=== PATIENT | female | born 1970 | race Asian ===

== ENCOUNTER 2021-02-12 10:59 | Outpatient (REF) | payer OTHER, SELFPAY ==
--- NOTE | ~2021-02-12 | CT_ITS ---
EXAMINATION: CT HEAD WITHOUT CONTRAST CLINICAL INFORMATION: Headache COMPARISON: None TECHNIQUE: Contiguous axial imaging was performed from the skull base to vertex without intravenous administration of contrast. This CT examination was performed using dose optimization techniques as appropriate, variously including the following: *Automated exposure control *Adjustment of mA and/or kV according to patient size (this includes techniques or standardized protocols for targeted exams where dose is matched to indication/reason for exam; i.e. extremities or head) *Use of iterative reconstruction technique DLP: 695 mGy-cm FINDINGS: There is no evidence of acute intracranial hemorrhage or territorial infarction. No abnormal mass effect or midline shift is seen. Graham to white matter differentiation is well preserved. No extra-axial fluid collections are identified. The ventricles are normal in size. There is no abnormal attenuation within the brain parenchyma. The osseous structures and soft tissues are normal. The mastoid air cells and visualized portions of the paranasal sinuses are well aerated. CT/CT head/brain wo con IMPRESSION: Unremarkable exam.
== END 2021-02-12 11:00 | disposition home or self-care (01) ==
LOC: HO.CT 10:59
PROVIDERS: PCP Internal Medicine; Visit Provider Internal Medicine
DX: R51.9 Headache, unspecified (principal); G89.29 Other chronic pain
CPT/HCPCS: 70450

== ENCOUNTER 2021-04-23 08:04 | Outpatient (REF) | payer OTHER, SELFPAY ==
[2021-04-23 09:13] LABS: Alanine Aminotransferase 29 U/L (0-31); Albumin Level 4.5 g/dL (3.5-5.0); Alkaline Phosphatase 73 U/L (39-117); Anion Gap 11 (12-20); Aspartate Amino Transferase 23 U/L (5-31); Bilirubin Total 0.8 mg/dL (0.0-1.0); Blood Urea Nitrogen 11 mg/dL (9-16); Calcium 9.2 mg/dL (8.4-10.2); Carbon Dioxide 28 mmol/L (22-29); Chloride 107 mmol/L (96-108); Estimated Glomerular Filt Rate > 60; Glucose Fasting 104 mg/dL (60-99); Potassium 4.1 mmol/L (3.3-5.1); Sodium 142 mmol/L (135-145); Total Protein 7.5 g/dL (6.5-8.0)
[2021-04-23 09:18] LABS: Cholesterol 127 mg/dL; HDL Cholesterol 61 mg/dL; LDL Cholesterol Calculated 52 mg/dl; Triglycerides 70 mg/dL
[2021-04-23 09:43] LABS: Free T4 (Free Thyroxine) 1.43 ng/dL (0.71-1.85); Vitamin D 25-OH Total 53.4 ng/mL (>30)
== END 2021-04-23 08:05 | disposition home or self-care (01) ==
LOC: HO.LAB 08:04
PROVIDERS: PCP Internal Medicine; Visit Provider Internal Medicine
DX: E89.0 Postprocedural hypothyroidism (principal); E78.00 Pure hypercholesterolemia, unspecified; E55.9 Vitamin D deficiency, unspecified
CPT/HCPCS: 36415; 80053; 80061; 82306; 84439; 84443

== ENCOUNTER → 2021-07-27 10:28 | Outpatient (BNVA) | payer OTHER, SELFPAY | PROVIDERS: PCP Internal Medicine; Referring Provider Internal Medicine; Visit Provider Nurse Practitioner Family ==

== ENCOUNTER 2022-02-07 07:09 | Day surgery (SDC) | payer OTHER, SELFPAY ==
[2022-02-01 12:00] VITALS: BMI 25.4
--- NOTE | 2022-02-04 10:20 | P.CONAN_ITS ---
Documented by User: Winter Nunez NP 02/04/22 10:21 HPI - Anesthesia Eval Consult details Narrative: 51yo F for Colonoscopy PMFSH Active Problems Active Problems: All Active Problems (Updated 10/25/21 @ 12:18 by Lawrence Mcgregor MD) Migraine (Acute) Annual physical exam (Acute) Colon cancer screening (Acute) Chronic headache (Acute) Overweight (BMI 25.0-29.9) (Acute) Vitamin D deficiency (Acute) Postsurgical hypothyroidism (Acute) Pure hypercholesterolemia (Acute) Past Medical History Medical History Chronic headache Migraine Overweight (BMI 25.0-29.9) Postsurgical hypothyroidism Pure hypercholesterolemia Thyroid cancer Vitamin D deficiency Family History Family History Mother Coronary artery disease Father Coronary artery disease Surgical History Surgical History H/O total thyroidectomy Social History Social History Housing: House Alcohol intake: never Patient Tobacco Use Status: Never used Tobacco Second Hand Smoke Exposure: No Use of substances other than those prescribed or required for medical reasons: No Are you DNR?: No Advance Directives: No Advance Directives Information Provided: Yes service: No Current occupational status: employed 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 Cognitive needs: No Hearing needs: No Vision needs: No Meds Allergies Allergy/AdvReac Type Severity Reaction Status Date / Time No Known Allergies Allergy Verified 10/25/21 11:59 Home Medications Medication Instructions Recorded Confirmed Last Taken Type cholecalciferol (vitamin D3) 50 50 mcg PO DAILY 01/22/21 10/25/21 Unknown History mcg (2,000 unit) capsule Exam Exam Date and Time: February 04, 2022 1020 Height,Weight and Vital Signs: Height 5 ft 1 in Weight 61.235 kg Assessment and Plan Assessment Anesthesia Assessment: Chart Reviewed Documented by User: Zaria López MD 02/07/22 08:28 [facility] Past Medical History Medical History Chronic headache Migraine Overweight (BMI 25.0-29.9) Postsurgical hypothyroidism Pure hypercholesterolemia Thyroid cancer Vitamin D deficiency Family History Family History Mother Coronary artery disease Father Coronary artery disease Family history of problems with anesthesia: No Surgical History Surgical History H/O total thyroidectomy History of Problems with Anesthesia: No Social History Social History Housing: House Alcohol intake: never Patient Tobacco Use Status: Never used Tobacco Second Hand Smoke Exposure: No Use of substances other than those prescribed or required for medical reasons: No Are you DNR?: No Advance Directives: No Advance Directives Information Provided: Yes service: No Current occupational status: employed 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 Cognitive needs: No Hearing needs: No Vision needs: No Meds Allergies Allergy/AdvReac Type Severity Reaction Status Date / Time No Known Allergies Allergy Verified 10/25/21 11:59 Home Medications Medication Instructions Recorded Confirmed Last Taken Type cholecalciferol (vitamin D3) 50 50 mcg PO DAILY 01/22/21 10/25/21 Unknown History mcg (2,000 unit) capsule Exam Airway Mallampati Class: III TM Dist: >3cm Neck ROM: Full Partial: Lower Heart: rrr Lungs: cta Assessment and Plan Assessment Anesthesia Assessment: Anesthesia Plan Discussed and Chart Reviewed Final Anesthetic Review Family History of Problems with Anesthesia: No History of Problems with Anesthesia: No ASA Class: II Final Preanesthetic Review: No Changes in Pt Med Stat, Meds/Allgs Chart Reviewed and Consent Obtained/Reviewed Patient Risk: Intermediate Procedure Risk: Intermediate Anesthetic Plan Anesthetic Plan: MAC: Disposition: Standard PACU
[2022-02-07 07:40] VITALS: BP 137/81; PULSE 79; RESP 16; TEMP 36.3; O2SAT 96
[2022-02-07] MEDS: Lactated Ringers 1,000 ML 100 ML IVCONT (07:46)
--- NOTE | 2022-02-07 08:16 | P.HPSUR_ITS ---
Pre-Procedural Eval Section A Date of Service: 02/07/22 The patient is an INPATIENT: No The History & Physical has been completed within 30 days and I have reviewed it.: No Section B Chief Complaint: screening Details of Present Illness: Colon cancer screening Relevant Family History (Specify if Yes): No Relevant Social History: None Present Medications: see Short Stay Collaborative assessment Medical History: Significant History (Chronic headache Overweight (BMI 25.0- 29.9) Postsurgical hypothyroidism Pure hypercholesterolemia Thyroid cancer Vitamin D deficiency) History of Previous Operations: Relevant previous surgery/procedure and date(s) (Status post thyroidectomy) Allergies: Allergies Allergy/AdvReac Type Severity Reaction Status Date / Time No Known Allergies Allergy Verified 10/25/21 11:59 Review of Systems Sugical H&P ROS: Negative: Constitution, Cardiovascular, Respiratory and Gastrointestinal Exam Surgical H&P Exam: Normal: Heart, Normal: Lungs and Normal: Abdomen Plan Diagnosis/Plan: Unchanged I have reviewed the history and physical and performed a pertinent physical examination on my patient. No changes have occurred unless specified.
--- NOTE | 2022-02-07 08:37 | PM.OP ---
Brief Operative Note Date of Service: 02/07/22 Pre-op diagnosis: Colon cancer screening Post-op diagnosis: other (Colon polyp, diverticulosis, hemorrhoids) Procedure: COLONOSCOPY TILL CECUM WITH BIOPSIES Consent: Indications for the procedure and potential complications of bleeding, perforation, reaction to medications and missed diagnosis were discussed with the patient and informed consent was obtained. Instrument: Olympus PCF H 190 L variable stiffness pediatric colonoscope Monitoring: Vital signs and clinical assessment, intermittent blood pressure monitoring, continuous EKG monitoring, Pulse oximetry and Carbon Dioxide monitoring were done throughout the procedure. Colon withdrawl time was 13 minutes. Procedure: The patient was placed in the left lateral decubitis position and pre-procedure medications were administered. After a digital rectal examination of the ano-rectum, the video colonoscope was inserted into the rectum and advanced through the colon to the cecum. The colonoscope was slowly withdrawn in a retrograde panoramic fashion and the colon mucosa was carefully examined including a retroflexed view of the rectum. Findings and interventions are described below. Procedure Difficulty: Without difficulty Findings: Terminal Ileum: Not evaluated Cecum: Normal Ascending Colon: Normal Transverse Colon: Normal Descending Colon: Normal Sigmoid Colon: A 5-6 mm sessile polyp removed with a cold bx. Moderate diverticulosis Rectum: Normal Ano-rectum: Moderate internal hemorrhoids Colon preparation: Excellent Impression and Post Procedure Diagnosis: Colonoscopy Findings: One small polyp removed Moderate diverticulosis seen in the sigmoid colon Moderate hemorrhoids on retroflexed exam. Plan: Await pathology results Patient has an appointment on 02/21/22 in the GI Clinic with Елена Fontanez FNP-BC. Repeat Colonoscopy interval based on path results - in 5 years if polyps are adenomatous and 10 years if polyps are hyperplastic. Above findings were reviewed with the patient and colon polyps and diverticulosis handouts were given in the discharge area Surgeon: Colten Elliott MD Anesthesia: MAC Was an Handmade Tile Artist used for this Procedure?: Yes Handmade Tile Artist: Amanda Alston Estimated blood loss (mL): 0 Pathology: other ( A. sigmoid polyp) Condition: stable Disposition: PACU
[2022-02-07 09:02] VITALS: BP 109/65; PULSE 77; RESP 16; TEMP 36; O2SAT 96
--- NOTE | 2022-02-07 09:04 | P.OP_ITS ---
Operative Note Operative Note Date of Service: 02/07/22 Narrative: Pre-op diagnosis: Colon cancer screening Post-op diagnosis:?other (Colon polyp, diverticulosis, hemorrhoids) Procedure: COLONOSCOPY TILL CECUM WITH BIOPSIES Consent: Indications for the procedure and potential complications of bleeding, perforation, reaction to medications and missed diagnosis were discussed with the patient and informed consent was obtained. Instrument: Olympus PCF H 190 L variable stiffness pediatric colonoscope Monitoring: Vital signs and clinical assessment, intermittent blood pressure monitoring, continuous EKG monitoring, Pulse oximetry and Carbon Dioxide monitoring were done throughout the procedure. Colon withdrawl time was 13 minutes. Procedure: The patient was placed in the left lateral decubitis position and pre-procedure medications were administered. After a digital rectal examination of the ano-rectum, the video colonoscope was inserted into the rectum and advanced through the colon to the cecum. The colonoscope was slowly withdrawn in a retrograde panoramic fashion and the colon mucosa was carefully examined including a retroflexed view of the rectum. Findings and interventions are described below. Procedure Difficulty: Without difficulty Findings: Terminal Ileum: Not evaluated Cecum:? Normal Ascending Colon:? Normal Transverse Colon:? Normal Descending Colon:? Normal Sigmoid Colon:? A 5-6 mm sessile polyp removed with a cold bx. Moderate diverticulosis Rectum:? Normal Ano-rectum:? Moderate internal hemorrhoids Colon preparation: Excellent ? Impression and Post Procedure Diagnosis: Colonoscopy Findings: One small polyp removed Moderate diverticulosis seen in the sigmoid colon Moderate hemorrhoids on retroflexed exam. Plan: Await pathology results Patient has an appointment on 02/21/22 in the GI Clinic with ? Елена Fontanez F NP-[facility]. Repeat Colonoscopy interval based on path results - in 5 years if polyps are adenomatous and 10 years if polyps are hyperplastic. Above findings were reviewed with the patient and colon polyps and diverticulosis handouts were given in the discharge area Surgeon: Colten Elliott MD Anesthesia:?MAC Was an Manager Compensation used for this Procedure?:?Yes Manager Compensation:?Amanda Alston Estimated blood loss (mL):?0 Pathology:?other ( A. sigmoid polyp) Condition:?stable Disposition:?PACU
[2022-02-07 09:18] VITALS: BP 111/66; PULSE 70; RESP 16; O2SAT 98
[2022-02-07 09:33] VITALS: BP 132/78; PULSE 75; RESP 18; O2SAT 98
[2022-02-07 09:48] VITALS: BP 145/77; PULSE 75; RESP 18; TEMP 36.6; O2SAT 98
== END 2022-02-07 10:10 | disposition home or self-care (01) ==
LOC: HO.SSS 07:10
PROVIDERS: PCP Internal Medicine; Visit Provider Internal Medicine Gastroenterology
PROC: 0DJD8ZZ Inspection of Lower Intestinal Tract, Via Natural or Artificial Opening Endoscopic (ICD-10-PCS; CPT 45378; principal; 2022-02-07 08:30)
DX: Z12.11 Encounter for screening for malignant neoplasm of colon (principal); K63.5 Polyp of colon; K57.30 Diverticulosis of large intestine without perforation or abscess without bleeding; K64.8 Other hemorrhoids; E78.00 Pure hypercholesterolemia, unspecified; E55.9 Vitamin D deficiency, unspecified; E89.0 Postprocedural hypothyroidism; Z85.850 Personal history of malignant neoplasm of thyroid; R51.9 Headache, unspecified; E66.3 Overweight; Z68.25 Body mass index [BMI] 25.0-25.9, adult; Z79.899 Other long term (current) drug therapy
CPT/HCPCS: 45380; 88305

== ENCOUNTER 2022-04-22 12:24 | Outpatient (REF) | payer OTHER, SELFPAY ==
[2022-04-22 12:36] LABS: MANUAL DIFF FLAG NO
[2022-04-22 12:56] LABS: Basophils Percent Auto 0.4 % (0-2); Eosinophils Absolute Auto 0.2 X10*3/uL (0.0-0.4); Eosinophils Percent Auto 4.3 % (0-4); Hemoglobin 12.9 g/dl (12.0-16.0); Imm Gran Abs Auto 0.01 X10*3/uL (0.00-0.03); Imm Gran Pct Auto 0.2 % (0.0-0.4); Lymphocytes Absolute Auto 1.2 X10*3/uL (1.2-4.9); Lymphocytes Percent Auto 24.1 % (20-40); Mean Corpuscular HGB Conc 34.9 g/dl (31.0-35.0); Mean Corpuscular Hemoglobin 30.5 pg (27.0-33.0); Mean Corpuscular Volume 87.5 fL (80.0-98.0); Mean Platelet Volume 9.7 fL (9.4-12.3); Monocytes Absolute Auto 0.4 X10*3/uL (0.1-1.2); Monocytes Percent Auto 6.9 % (2-11); Neutrophils Absolute Auto 3.3 x10*3/uL (2.0-8.3); Neutrophils Percent Auto 64.1 % (45-73); Platelet Count 308 X10*3/uL (160-400); Red Blood Count 4.23 X10*6/uL (4.20-5.50); Red Cell Distribution Width 12.5 % (11.0-16.0); White Blood Count 5.1 X10*3/uL (4.8-10.8)
[2022-04-22 13:26] LABS: Alanine Aminotransferase 28 U/L (0-31); Albumin Level 4.2 g/dL (3.5-5.0); Alkaline Phosphatase 81 U/L (39-117); Anion Gap 14 (12-20); Aspartate Amino Transferase 25 U/L (5-31); Bilirubin Total 0.9 mg/dL (0.0-1.0); Blood Urea Nitrogen 10 mg/dL (9-16); Calcium 8.5 mg/dL (8.4-10.2); Carbon Dioxide 24 mmol/L (22-29); Chloride 107 mmol/L (96-108); Cholesterol 126 mg/dL; Estimated Glomerular Filt Rate > 60; Glucose Fasting 87 mg/dL (60-99); HDL Cholesterol 61 mg/dL; LDL Cholesterol Calculated 52 mg/dl; Potassium 3.9 mmol/L (3.3-5.1); Sodium 141 mmol/L (135-145); Total Protein 6.9 g/dL (6.5-8.0); Triglycerides 66 mg/dL
[2022-04-22 13:40] LABS: Free T4 (Free Thyroxine) 1.47 ng/dL (0.71-1.85); Vitamin D 25-OH Total 45.1 ng/mL (>30)
[2022-04-22 15:58] LABS: Appearance Urine Clear; Color Urine Yellow; Glucose Urine UA Negative (Negative); Leukocyte Esterase Urine Negative (Negative); Nitrite Urine Negative (Negative); PH 5.5 (5.0-9.0); UMIC TRIGGER UACC YES; Urine Blood Trace (Negative); Urine Ketones Negative (Negative); Urine Protein Negative (Neg-Trace)
[2022-04-22 16:03] LABS: Bacteria Urine None Seen (None Seen); Hyaline Casts Urine 0-2 /LPF (0-2); RBC Urine 0-2 /HPF (0-2); WBC Urine 0-5 /HPF (0-5)
== END 2022-04-22 12:25 | disposition home or self-care (01) ==
LOC: HO.LAB 12:24
PROVIDERS: PCP Internal Medicine; Visit Provider Internal Medicine
DX: E78.00 Pure hypercholesterolemia, unspecified (principal); E03.9 Hypothyroidism, unspecified; I10 Essential (primary) hypertension; E55.9 Vitamin D deficiency, unspecified
CPT/HCPCS: 36415; 80053; 80061; 81001; 81003; 82306; 84439; 84443; 85025

== ENCOUNTER 2022-06-02 16:00 | Outpatient (REF) | payer OTHER, SELFPAY ==
--- NOTE | ~2022-06-02 | US_ITS ---
EXAMINATION: US SOFT TISSUE NECK CLINICAL INFORMATION: Malignant neoplasm of thyroid gland. Status post thyroidectomy. COMPARISON: None. TECHNIQUE: Ultrasound of the neck soft tissues is performed with high- frequency mosqueda-scale imaging and color Doppler. FINDINGS: THYROID BED: Total thyroidectomy. No residual thyroid tissue demonstrated in the thyroid bed. No cystic or solid nodules demonstrated in the thyroid bed. RIGHT NECK SOFT TISSUES: Scattered architecturally normal nodes are present. The nodes show normal fatty hilus, normal cortical thickness, and no cystic change or calcification. No abnormal color flow. The largest nodes are as follows: Level IA: 1.1 x 0.6 x 0.8 cm. Normal kimi architecture. Level IB: 0.6 x 0.7 x 1.2 cm. Abnormal kimi architecture with thick cortex. Level III: 1.8 x 0.3 x 0.5 cm. Normal kimi architecture. LEFT NECK SOFT TISSUES: Scattered architecturally normal nodes are present. The nodes show normal fatty hilus, normal cortical thickness, and no cystic change or calcification. No abnormal color flow. The largest nodes are as follows: Level IB: 1.5 x 1.1 x 1.9 cm. Abnormal kimi architecture with thick cortex. Level IB: 1.0 x 0.6 x 1.2 cm. Abnormal kimi architecture with absent hilum. Level II: 1.1 x 0.6 x 1.1 cm. Normal kimi architecture. US/US soft tiss head and/or neck IMPRESSION: 1. Total thyroidectomy with no residual tissue seen in the thyroid bed. 2. Abnormal-appearing lymph nodes level IB on right and left side. 3. Recommend continued follow-up.
== END 2022-06-02 16:01 | disposition home or self-care (01) ==
LOC: HO.US 16:00
PROVIDERS: PCP Internal Medicine; Visit Provider Internal Medicine Endocrinology, Diabetes & Metabolism
DX: C73 Malignant neoplasm of thyroid gland (principal)
CPT/HCPCS: 76536

== ENCOUNTER 2022-06-22 09:48 | Outpatient (REF) | payer OTHER, SELFPAY ==
--- NOTE | 2022-06-22 10:12 | PM.OP ---
Brief Operative Note Date of Service: 06/22/22 Pre-op diagnosis: History of Thyroid Cancer Procedure: EXAMINATION: US THYROID CLINICAL INFORMATION: History of thyroid cancer COMPARISON: Prior TECHNIQUE: Linear transducer mosqueda-scale and color Doppler examination with attention to the region of the thyroid. FINDINGS: SIZE: Measurements of the thyroid lobes and nodules are given in sagittal, anteroposterior and transverse dimensions respectively. No residual tissue within the thyroid bed. There is a Left level 1B 1.9 cm lymph node with abnormal morphology, with a globus shape and increased vascularity. Surgeon: Paula Geller, DO Was an Sales And Marketing Director used for this Procedure?: No Estimated blood loss (mL): 0
== END 2022-06-22 09:49 | disposition home or self-care (01) ==
LOC: HO.US 09:48
PROVIDERS: Visit Provider Internal Medicine Endocrinology, Diabetes & Metabolism
DX: C73 Malignant neoplasm of thyroid gland (principal)
CPT/HCPCS: 76536

== ENCOUNTER 2022-07-01 08:21 | Outpatient (REF) | payer OTHER, SELFPAY ==
--- NOTE | ~2022-07-01 | US_ITS ---
PROCEDURE: ULTRASOUND-GUIDED FINE-NEEDLE ASPIRATION CLINICAL INFORMATION: Thyroid cancer. Cervical lymphadenopathy. COMPARISON: Previous ultrasound of the head and neck soft tissues May and June 2022. TECHNIQUE: Procedure and risks and benefits including bleeding and infection were discussed with the patient and informed consent was obtained. The left submandibular neck was prepped and draped in the usual sterile fashion. The skin and soft tissues were anesthetized with 1% lidocaine plain. Using ultrasound guidance and a 25-gauge needle, access to the slightly enlarged abnormal-appearing left level IB lymph node was obtained. Three separate 25-gauge FNA specimens were obtained. Specimens were sent for thyroglobulin washout and flow cytometry studies. FINDINGS: There is a 2 cm in transverse dimension left level 1B lymph node that was targeted for fine-needle aspiration. This demonstrates areas of focal cortical thickening and cortical flow. US/US guided fine needle asp IMPRESSION: Ultrasound-guided fine-needle aspiration of left level 1B cervical lymph node.
[2022-07-01] MEDS: Lidocaine HCl 1 % MPF 5 ML VIAL 10 ML SUBCUT (09:37)
[2022-07-07 20:58] LABS: Thyroglobulin, Fine Needle Asp 3.7 ng/mL
== END 2022-07-01 08:22 | disposition home or self-care (01) ==
LOC: HO.US 08:21
PROVIDERS: Radiology Diagnostic Radiology; Visit Provider Internal Medicine
DX: C73 Malignant neoplasm of thyroid gland (principal)
CPT/HCPCS: 10005; 36415; 84432; 88172; 88173; 88184; 88185; 88300; 88305

== ENCOUNTER 2022-07-04 13:12 | Outpatient (REF) | payer OTHER, SELFPAY ==
[2022-07-04 14:48] LABS: Appearance Urine Clear; Color Urine Yellow; Glucose Urine UA Negative (Negative); Leukocyte Esterase Urine Negative (Negative); Nitrite Urine Negative (Negative); PH 5.5 (5.0-9.0); Specific Gravity - Urine 1.015 (1.005-1.025); Urine Blood Negative (Negative); Urine Ketones Negative (Negative); Urine Protein Negative (Neg-Trace)
[2022-07-04 15:00] LABS: Free T4 (Free Thyroxine) 1.35 ng/dL (0.71-1.85); Thyroid Stimulating Hormone 0.27 uIU/mL (0.32-4.0)
[2022-07-08 14:13] LABS: Thyroglobulin <0.1 ng/mL
== END 2022-07-04 13:13 | disposition home or self-care (01) ==
LOC: HO.LAB 13:12
PROVIDERS: PCP Internal Medicine; Visit Provider Internal Medicine Endocrinology, Diabetes & Metabolism
DX: I10 Essential (primary) hypertension (principal); E89.0 Postprocedural hypothyroidism
CPT/HCPCS: 36415; 81003; 84432; 84439; 84443

== ENCOUNTER → 2022-07-06 10:00 | Outpatient (BNVA) | payer OTHER, SELFPAY | PROVIDERS: PCP Internal Medicine; Visit Provider Internal Medicine Endocrinology, Diabetes & Metabolism | DX: E89.0 Postprocedural hypothyroidism (principal) ==

== ENCOUNTER 2022-10-27 12:32 | Outpatient (REF) | payer OTHER, SELFPAY ==
[2022-10-27 12:40] LABS: MANUAL DIFF FLAG NO
[2022-10-27 13:04] LABS: Basophils Percent Auto 0.8 % (0-2); Eosinophils Absolute Auto 0.3 X10*3/uL (0.0-0.4); Eosinophils Percent Auto 5.3 % (0-4); Hematocrit 38.6 % (37.0-47.0); Hemoglobin 13.6 g/dl (12.0-16.0); Imm Gran Abs Auto 0.01 X10*3/uL (0.00-0.03); Imm Gran Pct Auto 0.2 % (0.0-0.4); Lymphocytes Absolute Auto 1.4 X10*3/uL (1.2-4.9); Lymphocytes Percent Auto 26.7 % (20-40); Mean Corpuscular HGB Conc 35.2 g/dl (31.0-35.0); Mean Corpuscular Hemoglobin 31.1 pg (27.0-33.0); Mean Corpuscular Volume 88.3 fL (80.0-98.0); Monocytes Absolute Auto 0.4 X10*3/uL (0.1-1.2); Monocytes Percent Auto 7.2 % (2-11); Neutrophils Absolute Auto 3.2 x10*3/uL (2.0-8.3); Neutrophils Percent Auto 59.8 % (45-73); Platelet Count 312 X10*3/uL (160-400); Red Blood Count 4.37 X10*6/uL (4.20-5.50); Red Cell Distribution Width 12.3 % (11.0-16.0); White Blood Count 5.3 X10*3/uL (4.8-10.8)
[2022-10-27 13:16] LABS: Appearance Urine Clear; Color Urine Yellow; Glucose Urine UA Negative (Negative); Leukocyte Esterase Urine Negative (Negative); Nitrite Urine Negative (Negative); PH 5.5 (5.0-9.0); UMIC TRIGGER UACC YES; Urine Blood Trace (Negative); Urine Ketones Negative (Negative); Urine Protein Negative (Neg-Trace)
[2022-10-27 13:22] LABS: Bacteria Urine None Seen (None Seen); Hyaline Casts Urine 0-2 /LPF (0-2); RBC Urine 0-2 /HPF (0-2); Squamous Epithelial Cell Urine 0-2 /HPF (0-2); WBC Urine 0-5 /HPF (0-5)
[2022-10-27 13:46] LABS: Alanine Aminotransferase 29 U/L (0-31); Albumin Level 4.3 g/dL (3.5-5.0); Alkaline Phosphatase 88 U/L (39-117); Anion Gap 14 (12-20); Aspartate Amino Transferase 24 U/L (5-31); Bilirubin Total 1.3 mg/dL (0.0-1.0); Blood Urea Nitrogen 8 mg/dL (9-16); Calcium 8.8 mg/dL (8.4-10.2); Carbon Dioxide 26 mmol/L (22-29); Chloride 105 mmol/L (96-108); Cholesterol 140 mg/dL; Estimated Glomerular Filt Rate > 60; Glucose Fasting 93 mg/dL (60-99); HDL Cholesterol 61 mg/dL; LDL Cholesterol Calculated 60 mg/dl; Potassium 4.2 mmol/L (3.3-5.1); Sodium 141 mmol/L (135-145); Total Protein 6.9 g/dL (6.5-8.0); Triglycerides 98 mg/dL
[2022-10-27 14:02] LABS: Free T4 (Free Thyroxine) 1.28 ng/dL (0.71-1.85); Thyroid Stimulating Hormone 0.11 uIU/mL (0.32-4.0); Vitamin D 25-OH Total 61.7 ng/mL (>30)
== END 2022-10-27 12:33 | disposition home or self-care (01) ==
LOC: HO.LAB 12:32
PROVIDERS: PCP Internal Medicine; Visit Provider Internal Medicine
DX: E03.9 Hypothyroidism, unspecified (principal); E78.00 Pure hypercholesterolemia, unspecified; I10 Essential (primary) hypertension; E55.9 Vitamin D deficiency, unspecified; R30.0 Dysuria
CPT/HCPCS: 36415; 80053; 80061; 81001; 82306; 84439; 84443; 85025

== ENCOUNTER 2022-11-01 10:36 | Outpatient (AMB) | payer OTHER, SELFPAY ==
[2022-11-01 10:37] VITALS: BP 108/80; PULSE 65; O2SAT 98; BMI 25.9
--- NOTE | 2022-11-01 10:37 | MHC.PC.OV ---
Vital Signs 11/01/22 10:37 Height 5 ft 1 in Weight 137 lb 2 oz BMI 25.9 BP 108/80 Blood Pressure Location Lt brachial Position Sitting Pulse 65 Pulse Source Pulse Oximeter Pulse Oximetry (%) 98 Oxygen Delivery Method Room Air Intake Visit Reasons: hyperlipidemia, hypothyroidism Intake Note: Patiernt is here to discuss hyperlipidemia and hypothyroidism. 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 Accompanied by: Self / Same As Patient Allergies No Known Allergies Allergy (Verified 05/04/23 23:21) Medication List - Last Reconciled 11/01/22 by Lawrence Mcgregor MD atorvastatin 40 mg PO DAILY 90 days cholecalciferol (vitamin D3) 50 mcg PO DAILY levothyroxine 88 mcg PO DAILY mometasone 50 mcg/actuation 2 sprays intranasal DAILY 30 days naphazoline-pheniramine 0.025-0.3 % (Allergy Eye (naphazoline-pheniramine)) 1 drp ophthalmic (eye) BID-QID PRN ondansetron 4 mg PO Q8H PRN polyethylene glycol 3350 (Miralax) 17 grams PO DAILY triamcinolone acetonide 0.1% 1 appl dental BID PRN 7 days Tobacco use date assessed: 11/01/22 HPI hyperlipidemia, hypothyroidism HPI Details Patient comes in today for her follow up visit States that she's had an itchy rash on her right ankle area about a week ago since Easter after she went on an egg brandon Has been applying OTC Hydrocortisone cream over the rash for the past few days with no relief Adds that she has been experiencing frequent headaches again lately and would now like to try starting on preventive Tx for her headaches She denies any dizziness Denies any chest pains, no SOB (+) nausea and some photophobia at times that are associated with her headaches; denies any vomiting or abdominal pain but states that her stomach feels bloated at times when she gets constipated Had her follow up labs done last week - to discuss her results [facility] [place] Medical History Constipation Migraine Chronic headache Overweight (BMI 25.0-29.9) Vitamin D deficiency Postsurgical hypothyroidism Pure hypercholesterolemia Thyroid cancer Surgical History Hx of colonoscopy H/O total thyroidectomy Family History Mother Coronary artery disease Father Coronary artery disease Social History Housing: House Alcohol intake: never Patient Tobacco Use Status: Never used Tobacco e-Cigarette/Vaping Use: Never Used Second Hand Smoke Exposure: No service: No Current occupational status: employed 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 1. Little interest or pleasure in doing things: not at all 2. Feeling down, depressed, or hopeless: not at all 3. Trouble falling or staying asleep, or sleeping too much: not at all 4. Feeling tired or having little energy: not at all 5. Poor appetite or overeating: not at all 6. Feeling bad about yourself - or that you are a failure or have let yourself or your family down: not at all 7. Trouble concentrating on things, such as reading the newspaper or watching television: not at all 8. Moving or speaking so slowly that other people could have noticed. Or the opposite - being so fidgety or restless that you have been moving around a lot more than usual: not at all 9. Thoughts that you would be better off or of hurting yourself in some way: not at all Total score: 0 Depression Screening Interpretation: Negative 14867 - PHQ-9 Billing: Yes Source: Developed by Drs. Spencer Pack, Mariann Kelley, Jon Huang and colleagues, with an educational yulissa from [employer]. Thrive Questionnaire Date Thrive assessed: 11/01/22 I am a: Patient What is your living situation today?: I have a steady place to live Within the past 12 months, did the food you bought not last and you didn't have the money to get more?: Never true Within the past 12 months, did you worry whether your food would run out before you got money to buy more?: Never true Do you have trouble paying for medicines?: No Do you have trouble getting transportation to medical appointments?: No Do you have trouble paying your heating and electricity bill?: No Do you have trouble taking care of your child, family member or friend?: No Do you have trouble with day-to-day activities such as bathing, preparing meals, shopping, managing finances, etc.?: No Are you currently unemployed and looking for a job?: No Are you interested in more education?: No Currently or been in a relationship where the following occur: no concerns reported AUDIT C Alcohol Use Questionnaire (AUDIT-C) 1. How often do you have a drink containing alcohol?: Never 3. How often do you have six or more drinks on one occasion?: Never Total Score: 0 Score Reviewed/Action Taken: Yes MARY-7 AMB Questionnaire MARY-7 Date MARY - 7 assessed: 11/01/22 Feeling nervous, anxious, or on edge: 0 = Not at all Not being able to stop or control worryin = Not at all Worrying too much about different things: 0 = Not at all Trouble relaxin = Not at all Being so restless that it is hard to sit still: 0 = Not at all Becoming easily annoyed or irritable: 0 = Not at all Feeling afraid as if something awful might happen: 0 = Not at all Total MARY-7 score (0-4 normal; 5-9 mild; 10-14 moderate; 15-21 severe): 0 Source: Developed by Drs. Spencer Pack, Mariann Kelley, Jon Huang and colleagues, with an educational yulissa from [employer]. Review of Systems Const Denies fatigue, Denies fever(s) and Reports headache(s) (frequent) Eyes Reports photophobia (when headaches occur) ENT Denies dysphagia, Denies dizziness, Denies otalgia, Reports headache(s) (frequent), Denies neck pain, Denies odynophagia and Denies sore throat Card Denies chest pain, Denies rapid heart rate, Denies irregular heart rhythm, Denies palpitations and Denies dyspnea Resp Denies cough, Denies dyspnea and Denies wheezing GI Denies abdominal pain, Denies constipation, Denies dysphagia, Denies heartburn, Denies diarrhea, Reports nausea (at times, associated mostly with her headaches), Denies odynophagia and Denies vomiting Denies hematuria, Denies urinary frequency and Denies dysuria Musc Denies back pain, Denies arthralgias and Denies neck pain Skin/Breast Reports rash (around the right ankle area - see HPI) Neuro Denies dizziness, Reports headache(s) (frequent) and Denies paresthesias Psych Denies anxiety Endo Denies fatigue and Denies palpitations Cameron/Lymph Denies easy bruising Aller/Immun Denies wheezing Physical exam (Primary Care) Vital Signs: Last Vital Signs Pulse 65 11/01/22 10:37 BP 108/80 11/01/22 10:37 Pulse Ox 98 11/01/22 10:37 Oxygen Delivery Method Room Air 11/01/22 10:37 BMI result Body Mass Index 25.9 Tobacco/Smoking Status: Tobacco use Status Tobacco use date assessed 11/01/22 11/01/22 10:43 Patient Tobacco Use Status Never used Tobacco 11/01/22 10:43 PHQ-9: PHQ-9 Score PHQ-9: Total score 0 11/01/22 11:13 Depression Screening Interpretation: Negative Thrive Assessment: Date of Thrive Assessment Date Thrive assessed 11/01/22 11/01/22 10:43 Currently or been in a relationship where the following occur: no concerns reported Const General: no acute distress and alert HENMT Ears: TM's normal bilaterally and EAC's normal Throat: Yes posterior oropharynx normal and Yes tonsils normal (no TP congestion) Eyes Direct Ophthalmoscopy: photophobia (when headaches occur) Neck Neck: Yes no lymphadenopathy and Yes supple Thyroid: Thyroid normal Resp Auscultation: clear to auscultation bilaterally, no rales and no wheezes Cardio Rate: regular rate Rhythm: regular rhythm Heart sounds: no murmurs GI Palpation (GI): Soft to palpation and nontender Auscultation: normal bowel sounds General: Yes no CVA tenderness Back/Spine/Pelvis Back: no CVA tenderness Thoracic/Lumbar Spine: thoracic and lumbar spine normal to inspection Skin Other: (+) patchy erythematous rash around the lateral aspect of the right ankle Extrem General: Yes no clubbing, cyanosis or edema Results Reviewed Results Reviewed: Laboratory Tests 10/27/22 10/27/22 10/27/22 12:39 12:39 12:54 WBC 5.3 Hgb 13.6 Hct 38.6 Plt Count 312 Sodium 141 Potassium 4.2 Creatinine 0.71 Estimated GFR > 60 Fasting Glucose 93 Calcium 8.8 Total Bilirubin 1.3 H AST 24 ALT 29 Triglycerides 98 Cholesterol 140 LDL Cholesterol, Calc 60 HDL Cholesterol 61 25-OH Vitamin D Total 61.7 TSH 0.11 L Free T4 1.28 Ur Specific Aristes 1.020 Urine Protein Negative Urine Glucose (UA) Negative Urine Blood Trace H Assessment and Plan Assessment & Plan (1) Migraine: Code(s): G43.909 - Migraine, unspecified, not intractable, without status migrainosus Qualifiers: Intractability: not intractable Migraine type: unspecified Status migrainosus presence: without status migrainosus Qualified Code(s): G43.909 - Migraine, unspecified, not intractable, without status migrainosus Plan: Reinforced avoidance of potential migraine triggers Continue Ibuprofen or Tylenol PRN for symptomatic relief and Ondansetron 4 mg TID PRN for nausea/vomiting Was started on a trial of Topiramate 25 mg Q HS for migraine headache prophylaxis at her last visit but patient did not take it; is now willing to try - Rx sent (2) Pure hypercholesterolemia: Code(s): E78.00 - Pure hypercholesterolemia, unspecified Plan: Results of her labs done last week reviewed and discussed with patient Reinforced low cholesterol diet Continue Atorvastatin 40 mg QD Will recheck her labs in 6 months for follow-up (3) Postsurgical hypothyroidism: Comment: S/P total thyroidectomy Code(s): E89.0 - Postprocedural hypothyroidism Plan: Continue Levothyroxine 100 mcg QD follow up with endocrinology as scheduled (4) Vitamin D deficiency: Code(s): E55.9 - Vitamin D deficiency, unspecified Plan: Corrected - continue Vitamin D3 2000 units QD (5) Constipation: Code(s): K59.00 - Constipation, unspecified Qualifiers: Constipation type: unspecified constipation type Qualified Code(s): K59.00 - Constipation, unspecified Plan: Encouraged increased oral fluids and dietary fiber Continue MiraLax 17 gm QD as instructed (6) Dermatitis: Code(s): L30.9 - Dermatitis, unspecified Plan: Around the right ankle area Will start her on Triamcinolone acetonide cream 0.1% BID for the rash around her right ankle (7) Overweight (BMI 25.0-29.9): Code(s): E66.3 - Overweight Plan: Reinforced diet/exercise as tolerated/lose weight Plan Follow up in 6 months Orders: Orders Free T4 (Free Thyroxine) 6 Months E03.9 - Hypothyroidism, unspecified Lipid Panel 6 Months E78.00 - Pure hypercholesterolemia, unspecified Comprehensive [place]. Panel Fast 6 Months E78.00 - Pure hypercholesterolemia, unspecified Thyroid Stimulating Hormone 6 Months E03.9 - Hypothyroidism, unspecified Medications: New triamcinolone acetonide 0.5% 1 appl topical BID 30 grams 0RF Refilled topiramate 25 mg PO DAILY 30 tabs 5RF 30 days G43.909 - Migraine, unspecified, not intractable, without status migrainosus Coding Level of Care Code Est Pt Level 4 (02487) Diagnoses Migraine without status migrainosus, not intractable, unspecified migraine type G43.909 Intractability: not intractable Migraine type: unspecified Status migrainosus presence: without status migrainosus Pure hypercholesterolemia E78.00 Postsurgical hypothyroidism E89.0 Vitamin D deficiency E55.9 Constipation, unspecified constipation type K59.00 Constipation type: unspecified constipation type Dermatitis L30.9 Overweight (BMI 25.0-29.9) E66.3
== END 2022-11-01 11:26 | disposition home or self-care (01) ==
LOC: HO.HMGH 10:36
PROVIDERS: PCP Internal Medicine; Visit Provider Internal Medicine
DX: G43.909 Migraine, unspecified, not intractable, without status migrainosus (principal); E78.00 Pure hypercholesterolemia, unspecified; E89.0 Postprocedural hypothyroidism; E55.9 Vitamin D deficiency, unspecified; K59.00 Constipation, unspecified; L30.9 Dermatitis, unspecified; E66.3 Overweight
CPT/HCPCS: 99214

== ENCOUNTER → 2023-01-03 10:33 | Outpatient (BNVA) | payer OTHER, SELFPAY | PROVIDERS: PCP Internal Medicine; Visit Provider Internal Medicine Endocrinology, Diabetes & Metabolism ==

== ENCOUNTER 2023-04-20 11:34 | Outpatient (REF) | payer OTHER, SELFPAY ==
[2023-04-20 12:50] LABS: Alanine Aminotransferase 25 U/L (0-31); Albumin Level 4.4 g/dL (3.5-5.0); Alkaline Phosphatase 78 U/L (39-117); Anion Gap 15 (12-20); Aspartate Amino Transferase 25 U/L (5-31); Bilirubin Total 1.4 mg/dL (0.0-1.0); Blood Urea Nitrogen 10 mg/dL (9-16); Calcium 9.4 mg/dL (8.4-10.2); Carbon Dioxide 25 mmol/L (22-29); Chloride 104 mmol/L (96-108); Cholesterol 113 mg/dL (<200); Estimated Glomerular Filt Rate > 60; Glucose Fasting 83 mg/dL (60-99); HDL Cholesterol 62 mg/dL (>40); LDL Cholesterol Calculated 42 mg/dL (<100); Potassium 3.7 mmol/L (3.3-5.1); Sodium 140 mmol/L (135-145); Total Protein 7.4 g/dL (6.5-8.0); Triglycerides 49 mg/dL (<150)
[2023-04-20 13:05] LABS: Free T4 (Free Thyroxine) 1.15 ng/dL (0.71-1.85); Thyroid Stimulating Hormone 3.06 uIU/mL (0.32-4.0)
== END 2023-04-20 11:35 | disposition home or self-care (01) ==
LOC: HO.LAB 11:34
PROVIDERS: PCP Internal Medicine; Visit Provider Internal Medicine Endocrinology, Diabetes & Metabolism
DX: E03.9 Hypothyroidism, unspecified (principal); E78.00 Pure hypercholesterolemia, unspecified
CPT/HCPCS: 36415; 80053; 80061; 84439; 84443

== ENCOUNTER 2023-04-26 14:29 | Outpatient (AMB) | payer OTHER, SELFPAY ==
--- NOTE | 2023-04-26 14:31 | MHC.OFFVIS ---
Intake Vital Signs 04/26/23 14:34 Height 5 ft 1 in Weight 140 lb 6.951 oz BMI 26.5 BP 112/66 Blood Pressure Location Lt brachial Position Sitting Pulse 64 Pulse Source Pulse Oximeter Intake Visit Reasons: f/u thyroid cancer Intake Note: Patient present today for thyroid cancer follow up visit. 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 Required: No Accompanied by: Self / Same As Patient Allergies No Known Allergies Allergy (Verified 01/03/23 10:37) Medication List - Last Reconciled 04/26/23 by Spencer Poole MD atorvastatin 40 mg PO DAILY 90 days cholecalciferol (vitamin D3) 50 mcg PO DAILY levothyroxine (Synthroid) 75 mcg PO DAILY loperamide (Imodium A-D) 2 mg PO Q6H PRN mometasone 50 mcg/actuation 2 sprays intranasal DAILY 30 days naphazoline-pheniramine 0.025-0.3 % (Allergy Eye (naphazoline-pheniramine)) 1 drp ophthalmic (eye) BID-QID PRN ondansetron 4 mg PO Q8H PRN polyethylene glycol 3350 (Miralax) 17 grams PO DAILY simethicone (Gas-X Extra Strength) 125 mg PO TID-QID PRN triamcinolone acetonide 0.1% 1 appl dental BID PRN 7 days triamcinolone acetonide 0.5% 1 appl topical BID PRN HPI HPI Comments History of Present Illness Details This is a 52-year-old female with a history of papillary cancer s/p total thyroidectomy with modified neck dissection in 2006 previous patient of [facility] endocrine and then seen by Dr. Do at which was [facility] . thyroid cancer was multicentric with largest focus 1.8 cm. Patient underwent treatment radioactive iodine 158 mCi. She has had negative thyroglobulin including stimulated thyroglobulin which was indeterminate . She also underwent a biopsy of the lymph node that was negative in the past. She is currently on levothyroxine 75 mcg for some time. No sx of hypothyroidism or hyperthyroidism she recently underwent an FNA of a level 1 B lymph node by Interventional Radiology that showed lymphocytes but no evidence of metastatic cancer. 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 there is a scar in the neck status post total thyroidectomy pre. There is no cervical adenopathy palpated. Lungs CTA. Heart S1, S2 Reg R/R -M/R/G. Abdominal exam benign. Skin exam reveals absence of dryness or thyroid dermopathy or vitiligo. Nail exam reveals absence of thyroid acropachy or oncholysis. Neurologic exam reveals 2+ reflexes . Muscle Strength is 5/5 proximally. There are no tremors in upper extremities. Assessment & Plan Assessment & Plan (1) Postsurgical hypothyroidism: Comment: S/P total thyroidectomy Code(s): E89.0 - Postprocedural hypothyroidism Plan: This is a 53-year-old female with a history of multicentric papillary cancer status post total thyroidectomy radioactive iodine therapy in 2006. Currently replaced with mcg levothyroxine with suppressed TSH. she underwent an FNA of a level 1 B lymph node with benign cytology thyroglobulin washout suggesting no metastatic disease Plan is to have pt alternate levothyroxine 75 mcg with 88 ug and change to branded Synthroid. Recheck TSH and free T4 in 6 weeks time and adjust levothyroxine accordingly. Also, suggested 2nd opinion with Dr. Mouna Salas in [place] and patient is agreeing to go. (2) Thyroid cancer: Code(s): C73 - Malignant neoplasm of thyroid gland Orders: Orders Thyroid Stimulating Hormone 6 Weeks C73 - Malignant neoplasm of thyroid gland Free T4 (Free Thyroxine) 6 Weeks C73 - Malignant neoplasm of thyroid gland Medications: New levothyroxine (Synthroid) 75 mcg PO .qod 15 tabs 4RF Synthroid (levothyroxine) 88 mcg PO .qod 15 tabs 5RF NS Synthroid (levothyroxine) 88 mcg PO .qod 15 tabs 5RF NS Coding Level of Care Code Est Pt Level 3 (11234) Diagnoses Postsurgical hypothyroidism E89.0 Thyroid cancer C73
[2023-04-26 14:34] VITALS: BP 112/66; PULSE 64; BMI 26.5
== END 2023-04-26 15:11 | disposition home or self-care (01) ==
PROVIDERS: PCP Internal Medicine; Visit Provider Internal Medicine Endocrinology, Diabetes & Metabolism
DX: E89.0 Postprocedural hypothyroidism (principal); C73 Malignant neoplasm of thyroid gland
CPT/HCPCS: 99213

== ENCOUNTER → 2023-04-26 14:29 | Outpatient (BNVA) | payer OTHER, SELFPAY | PROVIDERS: PCP Internal Medicine; Visit Provider Internal Medicine Endocrinology, Diabetes & Metabolism ==

== ENCOUNTER 2023-05-04 10:37 | Outpatient (AMB) | payer OTHER, SELFPAY ==
[2023-05-04 10:39] VITALS: BP 120/80; PULSE 75; O2SAT 96; BMI 26.3
--- NOTE | 2023-05-04 10:39 | A.OFFPC_ITS ---
Vital Signs 05/04/23 10:39 Height 5 ft 1 in Weight 139 lb BMI 26.3 BP 120/80 Blood Pressure Location Lt brachial Position Sitting Pulse 75 Pulse Source Pulse Oximeter Pulse Oximetry (%) 96 Oxygen Delivery Method Room Air Intake Visit Reasons: hyperlipidemia, hypothyroidism Intake Note: Patiernt is here to discuss hyperlipidemia and hypothyroidism. Associate Trainer Required: No Accompanied by: Self / Same As Patient Allergies No Known Allergies Allergy (Verified 05/04/23 23:21) Medication List - Last Reconciled 05/04/23 by Lawrence Mcgregor MD atorvastatin 40 mg PO DAILY 90 days cholecalciferol (vitamin D3) 50 mcg PO DAILY levothyroxine (Synthroid) 75 mcg PO .qod loperamide (Imodium A-D) 2 mg PO Q6H PRN mometasone 50 mcg/actuation 2 sprays intranasal DAILY 30 days naphazoline-pheniramine 0.025-0.3 % (Allergy Eye (naphazoline-pheniramine)) 1 drp ophthalmic (eye) BID-QID PRN ondansetron 4 mg PO Q8H PRN polyethylene glycol 3350 (Miralax) 17 grams PO DAILY simethicone (Gas-X Extra Strength) 125 mg PO TID-QID PRN Synthroid (levothyroxine) 88 mcg PO .qod NS triamcinolone acetonide 0.1% 1 appl dental BID PRN 7 days triamcinolone acetonide 0.5% 1 appl topical BID PRN Tobacco use date assessed: 05/04/23 Dental Screening Dental Screen Date: 05/04/23 Did you have a dental visit in the last 12 months?: Yes Did you have a dental problem in the last 6 months where you did not have access to dental care?: No Was dental information given to patient?: Patient has dentist HPI hyperlipidemia, hypothyroidism HPI Details Patient comes in today for her follow up visit States that she feels okay Admits that she has not been taking her Topiramate even though she asked to be started back on it at her last visit Feels that her headaches have been better controlled lately and changed her mind about going back on prophylactic headache Tx She denies any dizziness Denies any chest pains, no shortness of breath No nausea /vomiting, no abdominal pain No change in bowel habits noted Would like to know how she did on her labs done back in October 2022 Would also like to get her flu shot today PFSH Medical History Constipation Migraine Chronic headache Overweight (BMI 25.0-29.9) Vitamin D deficiency Postsurgical hypothyroidism Pure hypercholesterolemia Thyroid cancer Surgical History Hx of colonoscopy H/O total thyroidectomy Family History Mother Coronary artery disease Father Coronary artery disease Social History Housing: House Alcohol intake: never Patient Tobacco Use Status: Never used Tobacco e-Cigarette/Vaping Use: Never Used Second Hand Smoke Exposure: No service: No Current occupational status: employed 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 1. Little interest or pleasure in doing things: not at all 2. Feeling down, depressed, or hopeless: not at all 3. Trouble falling or staying asleep, or sleeping too much: not at all 4. Feeling tired or having little energy: not at all 5. Poor appetite or overeating: not at all 6. Feeling bad about yourself - or that you are a failure or have let yourself or your family down: not at all 7. Trouble concentrating on things, such as reading the newspaper or watching television: not at all 8. Moving or speaking so slowly that other people could have noticed. Or the opposite - being so fidgety or restless that you have been moving around a lot more than usual: not at all 9. Thoughts that you would be better off or of hurting yourself in some way: not at all Total score: 0 Depression Screening Interpretation: Negative Depression Screening Done: Yes 26586 - PHQ-9 Billing: Yes Source: Developed by Drs. Spencer Pack, Mariann Kelley, Jon Huang and colleagues, with an educational yulissa from [employer]. Thrive Questionnaire Date Thrive assessed: 05/04/23 I am a: Patient What is your living situation today?: I have a steady place to live Within the past 12 months, did the food you bought not last and you didn't have the money to get more?: Never true Within the past 12 months, did you worry whether your food would run out before you got money to buy more?: Never true Do you have trouble paying for medicines?: No Do you have trouble getting transportation to medical appointments?: No Do you have trouble paying your heating and electricity bill?: No Do you have trouble taking care of your child, family member or friend?: No Do you have trouble with day-to-day activities such as bathing, preparing meals, shopping, managing finances, etc.?: No Are you currently unemployed and looking for a job?: No Are you interested in more education?: No Please select the resources that you would like help with: None Currently or been in a relationship where the following occur: no concerns reported AUDIT C Alcohol Use Questionnaire (AUDIT-C) 1. How often do you have a drink containing alcohol?: Never 3. How often do you have six or more drinks on one occasion?: Never Total Score: 0 Score Reviewed/Action Taken: Yes MARY-7 AMB Questionnaire MARY-7 Date MARY - 7 assessed: 05/04/23 Feeling nervous, anxious, or on edge: 0 = Not at all Not being able to stop or control worryin = Not at all Worrying too much about different things: 0 = Not at all Trouble relaxin = Not at all Being so restless that it is hard to sit still: 0 = Not at all Becoming easily annoyed or irritable: 0 = Not at all Feeling afraid as if something awful might happen: 0 = Not at all Total MARY-7 score (0-4 normal; 5-9 mild; 10-14 moderate; 15-21 severe): 0 Source: Developed by Drs. Spencer Pack, Mariann Kelley, Jon Huang and colleagues, with an educational yulissa from [employer]. Review of Systems Const Denies fatigue, Denies fever(s) and Reports headache(s) (occasional) ENT Denies dysphagia, Denies dizziness, Denies otalgia, Reports headache(s) (occas ional), Denies neck pain, Denies odynophagia and Denies sore throat Card Denies chest pain, Denies rapid heart rate, Denies irregular heart rhythm, Denies palpitations and Denies dyspnea Resp Denies cough, Denies dyspnea and Denies wheezing GI Denies abdominal pain, Denies constipation, Denies dysphagia, Denies heartburn, Denies diarrhea, Denies nausea, Denies odynophagia and Denies vomiting Denies hematuria, Denies urinary frequency and Denies dysuria Musc Denies back pain, Denies arthralgias and Denies neck pain Skin/Breast Denies rash Neuro Denies dizziness, Reports headache(s) (occasional) and Denies paresthesias Psych Denies anxiety Endo Denies fatigue and Denies palpitations Cameron/Lymph Denies easy bruising Aller/Immun Denies wheezing Physical exam (Primary Care) Vital Signs: Last Vital Signs Pulse 75 05/04/23 10:39 BP 120/80 05/04/23 10:39 Pulse Ox 96 05/04/23 10:39 Oxygen Delivery Method Room Air 05/04/23 10:39 BMI result Body Mass Index 26.3 Tobacco/Smoking Status: Tobacco use Status Tobacco use date assessed 05/04/23 05/04/23 10:46 Patient Tobacco Use Status Never used Tobacco 05/04/23 10:46 e-Cigarette/Vaping Use Never Used 05/04/23 10:46 PHQ-9: PHQ-9 Score PHQ-9: Total score 0 05/05/23 02:44 Depression Screening Interpretation: Negative Thrive Assessment: Date of Thrive Assessment Date Thrive assessed 05/04/23 05/04/23 10:46 Currently or been in a relationship where the following occur: no concerns reported Const General: no acute distress and alert HENMT Ears: TM's normal bilaterally and EAC's normal Throat: Yes posterior oropharynx normal and Yes tonsils normal (no TP congestion) Neck Neck: Yes no lymphadenopathy and Yes supple Thyroid: Thyroid normal Resp Auscultation: clear to auscultation bilaterally, no rales and no wheezes Cardio Rate: regular rate Rhythm: regular rhythm Heart sounds: no murmurs GI Palpation (GI): Soft to palpation and nontender Auscultation: normal bowel sounds General: Yes no CVA tenderness Back/Spine/Pelvis Back: no CVA tenderness Thoracic/Lumbar Spine: thoracic and lumbar spine normal to inspection Skin Rashes: no rashes Extrem General: Yes no clubbing, cyanosis or edema Office Procedures Flu Questionnaire Does the patient have a severe egg allergy?: No Does the patient have severe life threatening allergies?: No Does the patient have a fever or illness today?: No Has the patient ever had Guillain-[place] Syndrome?: No Has the patient ever had any past reaction to a flu shot?: No Immunizations flu vacc [id number] 6mos up(PF) 60 mcg(15 mcgx4)/0.5 mL IM syringe Performing Provider: Lawrence Mcgregor MD [facility] Administered by: Tawanna King on 05/04/23 10:53 Dose Route Admin Location Dispensed Lot Number Expiration Date [employer] 0.5 mL IM Left Deltoid 0.5 mL [id number] 01/14/24 [id number] [employer] VIS Given Date VIS Provided VIS Publication Date 05/04/23 Single Vaccine 21 Eligibility Eligibility Date Funding Source Not [facility] Eligible 05/04/23 Private Results Reviewed Results Reviewed: Laboratory Tests 10/27/22 10/27/22 10/27/22 12:39 12:39 12:54 WBC 5.3 Hgb 13.6 Hct 38.6 Plt Count 312 Sodium Potassium Creatinine Estimated GFR Fasting Glucose Calcium Total Bilirubin AST ALT Triglycerides Cholesterol LDL Cholesterol, Calc HDL Cholesterol 25-OH Vitamin D Total 61.7 TSH Free T4 Urine pH 5.5 Ur Specific [place] 1.020 Urine Protein Negative Urine Glucose (UA) Negative Urine Blood Trace H 04/20/23 04/20/23 04/20/23 11:54 11:54 11:54 WBC Hgb Hct Plt Count Sodium 140 Potassium 3.7 Creatinine 0.67 Estimated GFR > 60 Fasting Glucose 83 Calcium 9.4 D Total Bilirubin 1.4 H AST 25 ALT 25 Triglycerides 49 Cholesterol 113 LDL Cholesterol, Calc 42 HDL Cholesterol 62 25-OH Vitamin D Total TSH 3.06 Free T4 1.15 Urine pH Ur Specific [place] Urine Protein Urine Glucose (UA) Urine Blood Assessment and Plan Assessment & Plan (1) Pure hypercholesterolemia: Code(s): E78.00 - Pure hypercholesterolemia, unspecified Plan: Results of her labs done back in October 2022 reviewed and discussed with patient Reinforced low cholesterol diet Continue Atorvastatin 40 mg QD Will recheck her labs and fasting lipids in 6 months for follow-up (2) Postsurgical hypothyroidism: Comment: S/P total thyroidectomy Code(s): E89.0 - Postprocedural hypothyroidism Plan: Continue Levothyroxine 100 mcg QD Follow-up with endocrinology as scheduled (3) Migraine: Code(s): G43.909 - Migraine, unspecified, not intractable, without status migrainosus Qualifiers: Intractability: not intractable Migraine type: unspecified Status migrainosus presence: without status migrainosus Qualified Code(s): G43.909 - Migraine, unspecified, not intractable, without status migrainosus Plan: Reinforced avoidance of potential migraine triggers Continue Ibuprofen or Tylenol PRN for symptomatic relief and Ondansetron 4 mg TID PRN for nausea/vomiting Was started back on trial of Topiramate 25 mg Q HS for migraine headache prophylaxis at her last visit per her request but patient later decided again not to take it when her headaches started subsiding; feels that she does not need it at this time (4) Vitamin D deficiency: Code(s): E55.9 - Vitamin D deficiency, unspecified Plan: Corrected - continue Vitamin D3 2000 units QD (5) Constipation: Code(s): K59.00 - Constipation, unspecified Qualifiers: Constipation type: unspecified constipation type Qualified Code(s): K59.00 - Constipation, unspecified Plan: Encouraged increased oral fluids and dietary fiber Continue MiraLax 17 gm QD (6) Overweight (BMI 25.0-29.9): Code(s): E66.3 - Overweight Plan: Reinforced diet/exercise as tolerated/lose weight Plan Flu vaccine given today Follow up in 6 months Orders: Orders Influenza [id number] Immunization 05/04/23 Z23 - Encounter for immunization Complete Blood Count Auto Diff 6 Months I10 - Essential (primary) hypertension Comprehensive [place]. Panel Fast 6 Months E78.00 - Pure hypercholesterolemia, unspecified Lipid Panel 6 Months E78.00 - Pure hypercholesterolemia, unspecified Free T4 (Free Thyroxine) 6 Months E03.9 - Hypothyroidism, unspecified UA CC w/rflx Micro + Cult 6 Months R30.0 - Dysuria Thyroid Stimulating Hormone 6 Months E03.9 - Hypothyroidism, unspecified Vitamin D 25-OH Total 6 Months E55.9 - Vitamin D deficiency, unspecified Vitamin B12 and Folate 6 Months E53.8 - Deficiency of other specified B group vitamins Coding Level of Care Code Est Pt Level 4 (91725) Diagnoses Pure hypercholesterolemia E78.00 Postsurgical hypothyroidism E89.0 Migraine without status migrainosus, not intractable, unspecified migraine type G43.909 Intractability: not intractable Migraine type: unspecified Status migrainosus presence: without status migrainosus Vitamin D deficiency E55.9 Constipation, unspecified constipation type K59.00 Constipation type: unspecified constipation type Overweight (BMI 25.0-29.9) E66.3
== END 2023-05-04 11:36 | disposition home or self-care (01) ==
PROVIDERS: PCP Internal Medicine; Visit Provider Internal Medicine
DX: Z23 Encounter for immunization (principal)
CPT/HCPCS: 90471; 90686; 99214

== ENCOUNTER 2023-06-06 11:44 | Outpatient (REF) | payer OTHER, SELFPAY ==
[2023-06-06 13:50] LABS: Free T4 (Free Thyroxine) 1.21 ng/dL (0.71-1.85); Thyroid Stimulating Hormone 0.97 uIU/mL (0.32-4.0)
== END 2023-06-06 11:45 | disposition home or self-care (01) ==
LOC: HO.10HDL 11:44
PROVIDERS: Visit Provider Internal Medicine Endocrinology, Diabetes & Metabolism
DX: C73 Malignant neoplasm of thyroid gland (principal)
CPT/HCPCS: 36415; 84439; 84443

== ENCOUNTER 2023-08-29 11:36 | Outpatient (AMB) | payer OTHER, SELFPAY ==
[2023-08-29 11:38] VITALS: BP 120/84; PULSE 80; BMI 26.2
--- NOTE | 2023-08-29 11:38 | MHC.OFFVIS ---
Intake Vital Signs 08/29/23 11:38 Height 5 ft 1 in Weight 138 lb 7.205 oz BMI 26.2 BP 120/84 Blood Pressure Location Lt brachial Position Sitting Pulse 80 Pulse Source Pulse Oximeter Intake Visit Reasons: f/u thyroid cancer-confirmed Intake Note: Patient presents today for Thyroid Cancer follow up. Digital Press Operator Required: No Accompanied by: Self / Same As Patient Allergies No Known Allergies Allergy (Verified 08/29/23 11:45) Medication List - Last Reconciled 08/29/23 by Spencer Poole MD atorvastatin 40 mg PO DAILY 90 days cholecalciferol (vitamin D3) 50 mcg PO DAILY levothyroxine (Synthroid) 75 mcg PO .qod levothyroxine (Synthroid) 88 mcg PO .qod loperamide (Imodium A-D) 2 mg PO Q6H PRN mometasone 50 mcg/actuation 2 sprays intranasal DAILY 30 days naphazoline-pheniramine 0.025-0.3 % (Allergy Eye (naphazoline-pheniramine)) 1 drp ophthalmic (eye) BID-QID PRN ondansetron 4 mg PO Q8H PRN polyethylene glycol 3350 (Miralax) 17 grams PO DAILY simethicone (Gas-X Extra Strength) 125 mg PO TID-QID PRN triamcinolone acetonide 0.1% 1 appl dental BID PRN 7 days triamcinolone acetonide 0.5% 1 appl topical BID PRN HPI HPI Comments History of Present Illness Details This is a 52-year-old female with a history of papillary cancer s/p total thyroidectomy with modified neck dissection in 2006 previous patient of [facility] endocrine and then seen by Dr. Do at which was [facility] . thyroid cancer was multicentric with largest focus 1.8 cm. Patient underwent treatment radioactive iodine 158 mCi. She has had negative thyroglobulin including stimulated thyroglobulin which was indeterminate . She also underwent a biopsy of the lymph node that was negative in the past. She is currently on levothyroxine 75 mcg for some time. No sx of hypothyroidism or hyperthyroidism she recently underwent an FNA of a level 1 B lymph node by Interventional Radiology that showed lymphocytes but no evidence of metastatic cancer. A thyroglobulin washout was indeterminate [facility] Medical History Constipation Migraine Chronic headache Overweight (BMI 25.0-29.9) Vitamin D deficiency Postsurgical hypothyroidism Pure hypercholesterolemia Thyroid cancer Surgical History Hx of colonoscopy H/O total thyroidectomy Family History Mother Coronary artery disease Father Coronary artery disease Social History Housing: House Alcohol intake: never Patient Tobacco Use Status: Never used Tobacco e-Cigarette/Vaping Use: Never Used Second Hand Smoke Exposure: No service: No Current occupational status: employed 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 there is a scar in the neck status post total thyroidectomy pre. There is no cervical adenopathy palpated. Lungs CTA. Heart S1, S2 Reg R/R -M/R/G. Abdominal exam benign. Skin exam reveals absence of dryness or thyroid dermopathy or vitiligo. Nail exam reveals absence of thyroid acropachy or oncholysis. Neurologic exam reveals 2+ reflexes . Muscle Strength is 5/5 proximally. There are no tremors in upper extremities. Assessment & Plan Assessment & Plan (1) Postsurgical hypothyroidism: Comment: S/P total thyroidectomy Code(s): E89.0 - Postprocedural hypothyroidism Plan: This is a 53-year-old female with a history of multicentric papillary cancer status post total thyroidectomy radioactive iodine therapy in 2006. Currently replaced with mcg levothyroxine with suppressed TSH. she underwent an FNA of a level 1 B lymph node with benign cytology thyroglobulin washout suggesting no metastatic disease Plan is to have pt alternate levothyroxine 75 mcg with 88 ug and change to branded Synthroid. She appears to be clinically and biochemically euthyroid. Try to obtain office notes from visit to [facility] with as well as future neck ultrasounds done there (2) Thyroid cancer: Code(s): C73 - Malignant neoplasm of thyroid gland Plan: Plan as above Coding Level of Care Code Est Pt Level 3 (83314) Diagnoses Postsurgical hypothyroidism E89.0 Thyroid cancer C73
== END 2023-08-29 13:28 | disposition home or self-care (01) ==
PROVIDERS: PCP Internal Medicine; Visit Provider Internal Medicine Endocrinology, Diabetes & Metabolism
DX: E89.0 Postprocedural hypothyroidism (principal); C73 Malignant neoplasm of thyroid gland
CPT/HCPCS: 99213

== ENCOUNTER → 2023-08-29 11:36 | Outpatient (BNVA) | payer OTHER, SELFPAY | PROVIDERS: PCP Internal Medicine; Visit Provider Internal Medicine Endocrinology, Diabetes & Metabolism ==

== ENCOUNTER 2023-09-06 12:19 | Outpatient (REF) | payer OTHER, SELFPAY ==
[2023-09-06 13:06] LABS: MANUAL DIFF FLAG NO
[2023-09-06 13:10] LABS: Appearance Urine Clear; Basophils Percent Auto 0.5 % (0-2); Color Urine Yellow; Eosinophils Absolute Auto 0.2 X10*3/uL (0.0-0.4); Eosinophils Percent Auto 5.4 % (0-4); Glucose Urine UA Negative (Negative); Hematocrit 37.9 % (37.0-47.0); Hemoglobin 13.3 g/dl (12.0-16.0); Imm Gran Abs Auto 0.01 X10*3/uL (0.00-0.03); Imm Gran Pct Auto 0.2 % (0.0-0.4); Leukocyte Esterase Urine Negative (Negative); Lymphocytes Absolute Auto 1.4 X10*3/uL (1.2-4.9); Lymphocytes Percent Auto 32.2 % (20-40); Mean Corpuscular HGB Conc 35.1 g/dl (31.0-35.0); Mean Corpuscular Hemoglobin 30.6 pg (27.0-33.0); Mean Corpuscular Volume 87.3 fL (80.0-98.0); Mean Platelet Volume 9.8 fL (9.4-12.3); Monocytes Absolute Auto 0.3 X10*3/uL (0.1-1.2); Monocytes Percent Auto 5.9 % (2-11); Neutrophils Absolute Auto 2.4 x10*3/uL (2.0-8.3); Neutrophils Percent Auto 55.8 % (45-73); Nitrite Urine Negative (Negative); Platelet Count 284 X10*3/uL (160-400); Red Blood Count 4.34 X10*6/uL (4.20-5.50); Red Cell Distribution Width 12.3 % (11.0-16.0); UMIC TRIGGER UACC YES; Urine Blood Trace (Negative); Urine Ketones Negative (Negative); Urine Protein Negative (Neg-Trace); White Blood Count 4.3 X10*3/uL (4.8-10.8)
[2023-09-06 13:14] LABS: Bacteria Urine None Seen (None Seen); Hyaline Casts Urine 0-2 /LPF (0-2); RBC Urine 0-2 /HPF (0-2); Squamous Epithelial Cell Urine 0-2 /HPF (0-2); WBC Urine 0-5 /HPF (0-5)
[2023-09-06 13:29] LABS: Alanine Aminotransferase 30 U/L (0-31); Albumin Level 4.4 g/dL (3.5-5.0); Alkaline Phosphatase 84 U/L (39-117); Anion Gap 14 (12-20); Aspartate Amino Transferase 25 U/L (5-31); Bilirubin Total 1.1 mg/dL (0.0-1.0); Blood Urea Nitrogen 13 mg/dL (9-16); Calcium 8.8 mg/dL (8.4-10.2); Carbon Dioxide 25 mmol/L (22-29); Chloride 106 mmol/L (96-108); Cholesterol 139 mg/dL (<200); Estimated Glomerular Filt Rate > 60; Glucose Fasting 88 mg/dL (60-99); HDL Cholesterol 61 mg/dL (>40); LDL Cholesterol Calculated 67 mg/dL (<100); Potassium 3.8 mmol/L (3.3-5.1); Sodium 141 mmol/L (135-145); Total Protein 7.4 g/dL (6.5-8.0); Triglycerides 55 mg/dL (<150)
[2023-09-06 13:45] LABS: Thyroid Stimulating Hormone 0.53 uIU/mL (0.32-4.0); Vitamin D 25-OH Total 56.4 ng/mL (>30)
[2023-09-06 13:57] LABS: Folate 11.6 ng/mL (> or = 4.0); Vitamin B12 417 pg/mL (200-900)
== END 2023-09-06 12:20 | disposition home or self-care (01) ==
LOC: HO.10HDL 12:19
PROVIDERS: Visit Provider Internal Medicine
DX: I10 Essential (primary) hypertension (principal); E03.9 Hypothyroidism, unspecified; E53.8 Deficiency of other specified B group vitamins; E55.9 Vitamin D deficiency, unspecified; E78.00 Pure hypercholesterolemia, unspecified
CPT/HCPCS: 36415; 80053; 80061; 81001; 82306; 82607; 82746; 84439; 84443; 85025

== ENCOUNTER 2023-09-08 12:50 | Outpatient (AMB) | payer OTHER, SELFPAY ==
[2023-09-08 12:54] VITALS: BP 122/78; RESP 17; BMI 25.5
--- NOTE | 2023-09-08 12:54 | A.OFFPC_ITS ---
Vital Signs 09/08/23 12:54 Height 5 ft 1 in Weight 135 lb 2 oz BMI 25.5 BP 122/78 Blood Pressure Location Lt brachial Position Sitting Respiration 17 Pulse Source Pulse Oximeter Oxygen Delivery Method Room Air Intake Visit Reasons: Annual Exam Intake Note: Patient is here today for a physical and has been experiencing headaches. 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 Accompanied by: Self / Same As Patient Allergies No Known Allergies Allergy (Verified 09/08/23 13:43) Medication List - Last Reconciled 09/08/23 by Lawrence Mcgregor MD atorvastatin 40 mg PO DAILY 90 days cholecalciferol (vitamin D3) 50 mcg PO DAILY levothyroxine (Synthroid) 88 mcg PO .qod loperamide (Imodium A-D) 2 mg PO Q6H PRN mometasone 50 mcg/actuation 2 sprays intranasal DAILY 30 days naphazoline-pheniramine 0.025-0.3 % (Allergy Eye (naphazoline-pheniramine)) 1 drp ophthalmic (eye) BID-QID PRN ondansetron 4 mg PO Q8H PRN polyethylene glycol 3350 (Miralax) 17 grams PO DAILY simethicone (Gas-X Extra Strength) 125 mg PO TID-QID PRN topiramate 25 mg PO BEDTIME 90 days triamcinolone acetonide 0.1% 1 appl dental BID PRN 7 days triamcinolone acetonide 0.5% 1 appl topical BID PRN Tobacco use date assessed: 09/08/23 Dental Screening Dental Screen Date: 09/08/23 Did you have a dental visit in the last 12 months?: Yes Did you have a dental problem in the last 6 months where you did not have access to dental care?: No Was dental information given to patient?: Patient has dentist HPI Annual Exam HPI Details Patient comes in today for her annual physical examination States that she has been experiencing recurrent/frequent headaches for the past couple of months now Relates (+) photophobia and on and off nausea associated with her migraine headaches; denies any vomiting States that she feels okay otherwise She denies any chest pains, no SOB No abdominal pain and no change in bowel habits noted Denies any acute urinary symptoms She needs her Mometasone inhaler Rx refilled Patient had her follow up labs done a couple of days ago - to discuss her results States that she is up-to-date with her gynecology exam and pap smear (done last year) - [facility] Therapist is in [place] Had her screening colonoscopy done in January 2022 - normal; recommend repeat colonoscopy in 10 yrs (2031) She had her mammogram most recently done last year at [facility] in [place] and is now due for repeat mammogram [facility] Medical History Constipation Migraine Chronic headache Overweight (BMI 25.0-29.9) Vitamin D deficiency Postsurgical hypothyroidism Pure hypercholesterolemia Thyroid cancer Surgical History Hx of colonoscopy H/O total thyroidectomy Family History Mother Coronary artery disease Father Coronary artery disease Social History Housing: House Alcohol intake: never Patient Tobacco Use Status: Never used Tobacco e-Cigarette/Vaping Use: Never Used Second Hand Smoke Exposure: No service: No Current occupational status: employed 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 1. Little interest or pleasure in doing things: not at all 2. Feeling down, depressed, or hopeless: not at all 3. Trouble falling or staying asleep, or sleeping too much: not at all 4. Feeling tired or having little energy: not at all 5. Poor appetite or overeating: not at all 6. Feeling bad about yourself - or that you are a failure or have let yourself or your family down: not at all 7. Trouble concentrating on things, such as reading the newspaper or watching television: not at all 8. Moving or speaking so slowly that other people could have noticed. Or the opposite - being so fidgety or restless that you have been moving around a lot more than usual: not at all 9. Thoughts that you would be better off or of hurting yourself in some way: not at all Total score: 0 Depression Screening Interpretation: Negative Depression Screening Done: Yes 09804 - PHQ-9 Billing: Yes Source: Developed by Mariann Dewey Kurt Kroenke and colleagues, with an educational yulissa from [employer]. Thrive Questionnaire Date Thrive assessed: 09/08/23 I am a: Patient What is your living situation today?: I have a steady place to live Within the past 12 months, did the food you bought not last and you didn't have the money to get more?: Never true Within the past 12 months, did you worry whether your food would run out before you got money to buy more?: Never true Do you have trouble paying for medicines?: No Do you have trouble getting transportation to medical appointments?: No Do you have trouble paying your heating and electricity bill?: No Do you have trouble taking care of your child, family member or friend?: No Do you have trouble with day-to-day activities such as bathing, preparing meals, shopping, managing finances, etc.?: No Are you currently unemployed and looking for a job?: No Are you interested in more education?: No Please select the resources that you would like help with: None Currently or been in a relationship where the following occur: no concerns reported THRIVE Score: 0 AUDIT C Alcohol Use Questionnaire (AUDIT-C) 1. How often do you have a drink containing alcohol?: Never 3. How often do you have six or more drinks on one occasion?: Never Total Score: 0 Score Reviewed/Action Taken: Yes MARY-7 AMB Questionnaire MARY-7 Date MARY - 7 assessed: 09/08/23 Feeling nervous, anxious, or on edge: 0 = Not at all Not being able to stop or control worryin = Not at all Worrying too much about different things: 0 = Not at all Trouble relaxin = Not at all Being so restless that it is hard to sit still: 0 = Not at all Becoming easily annoyed or irritable: 0 = Not at all Feeling afraid as if something awful might happen: 0 = Not at all Total MARY-7 score (0-4 normal; 5-9 mild; 10-14 moderate; 15-21 severe): 0 Source: Developed by Mariann Dewey Kurt Kroenke and colleagues, with an educational yulissa from [employer]. MARY-7 Assessment Billing MARY-7 Assessment Tool: MARY-7 Assessment 21031 Review of Systems Const Denies chills, Denies fatigue, Denies fever(s), Reports headache(s) (recurrent - see HPI; associated with photophobia and nausea) and Denies malaise Eyes Denies blurry vision, Denies change in vision, Denies irritation, Denies itchy eyes and Reports photophobia (when (+) headaches) ENT Denies dysphagia, Denies dizziness, Denies otalgia, Reports headache(s) (recurrent - see HPI; associated with photophobia and nausea), Denies nasal congestion, Denies neck pain, Denies odynophagia, Denies sinus pain and Denies sore throat Card Denies chest pain, Denies rapid heart rate, Denies irregular heart rhythm, Denies palpitations and Denies dyspnea Resp Denies chest congestion, Denies cough, Denies dyspnea and Denies wheezing GI Denies abdominal pain, Denies bloating, Denies constipation, Denies dysphagia, Denies heartburn, Denies diarrhea, Reports nausea (on and off, associated with her headaches), Denies odynophagia and Denies vomiting Denies hematuria, Denies urinary frequency, Denies dysuria, Denies urinary incontinence and Denies urinary urgency Musc Denies back pain, Denies arthralgias, Denies joint swelling, Denies muscle weakness and Denies neck pain Skin/Breast Denies breast pain, Denies breast mass, Denies change in pigmentation, Denies lesions, Denies rash and Denies unusual bruising Neuro Denies dizziness, Reports headache(s) (recurrent - see HPI; associated with photophobia and nausea) and Denies paresthesias Psych Denies anxiety and Denies depression Endo Denies fatigue and Denies palpitations Cameron/Lymph Denies easy bruising Aller/Immun Denies itchy eyes and Denies wheezing Physical exam (Primary Care) Vital Signs: Last Vital Signs Resp 17 09/08/23 12:54 BP 122/78 09/08/23 12:54 Oxygen Delivery Method Room Air 09/08/23 12:54 BMI result Body Mass Index 25.5 Tobacco/Smoking Status: Tobacco use Status Tobacco use date assessed 09/08/23 09/08/23 13:07 Patient Tobacco Use Status Never used Tobacco 09/08/23 12:54 e-Cigarette/Vaping Use Never Used 09/08/23 12:54 PHQ-9: PHQ-9 Score PHQ-9: Total score 0 09/08/23 13:07 Depression Screening Interpretation: Negative Thrive Assessment: Date of Thrive Assessment Date Thrive assessed 09/08/23 09/08/23 13:07 Currently or been in a relationship where the following occur: no concerns reported Const General: no acute distress, alert and awake Orientation/consciousness: patient oriented x3 HENMT Head: Yes normocephalic and Yes atraumatic Ears: external ears normal, TM's normal bilaterally and EAC's normal General nose exam: No nasal discharge present Face and sinus: Yes normal facial exam and Yes sinuses nontender Teeth and gingiva: dentition normal Throat: Yes posterior oropharynx normal and Yes tonsils normal (no TP congestion) Eyes Eyelids: Yes eyelids normal Conjunctivae: conjunctivae normal Pupils: Equal, round and reactive pupils present EOM: EOMs intact bilaterally Direct Ophthalmoscopy: photophobia (when (+) headaches) Neck Neck: Yes no lymphadenopathy and Yes supple Thyroid: Thyroid normal Resp Auscultation: clear to auscultation bilaterally, no rales and no wheezes Cardio Rate: regular rate Rhythm: regular rhythm Heart sounds: no murmurs GI Palpation (GI): Soft to palpation, nontender and No hepatosplenomegaly present Auscultation: normal bowel sounds General: Yes no CVA tenderness Back/Spine/Pelvis Back: no CVA tenderness Thoracic/Lumbar Spine: thoracic and lumbar spine normal to inspection Skin Lesions: no lesions Rashes: no rashes Neuro General: patient oriented x3, moves all extremities, no focal motor deficits and CN's II-XI intact bilaterally Cranial nerves: Yes Equal, round and reactive pupils present Cognition (Neuro): normal cognition Gait exam (Neuro): Normal gait present Extrem General: Yes no clubbing, cyanosis or edema Results Reviewed Results Reviewed: Laboratory Tests 09/06/23 12:26 WBC 4.3 L Hgb 13.3 Hct 37.9 Plt Count 284 Sodium 141 Potassium 3.8 Creatinine 0.70 Estimated GFR > 60 Fasting Glucose 88 Calcium 8.8 D AST 25 ALT 30 Triglycerides 55 Cholesterol 139 LDL Cholesterol, Calc 67 HDL Cholesterol 61 Vitamin B12 417 25-OH Vitamin D Total 56.4 TSH 0.53 Free T4 1.10 Ur Specific [place] 1.020 Urine Protein Negative Urine Glucose (UA) Negative Urine Blood Trace H Urine Nitrite Negative Ur Leukocyte Esterase Negative Assessment and Plan Assessment & Plan (1) Annual physical exam: Code(s): Z00.00 - Encounter for general adult medical examination without abnormal findings Plan: Results of her labs done a couple of days ago reviewed and discussed with patient She had her colonoscopy done in 2021 and will be due for repeat colonoscopy in 10 years (2031) She is due for her annual mammogram - last done at [facility] in September 2022 - repeat mammogram ordered She is up-to-date with her annual gynecology exam and pap smear - goes to gynecology in [place] (2) Pure hypercholesterolemia: Code(s): E78.00 - Pure hypercholesterolemia, unspecified Plan: Advised that her cholesterol levels are at goal on her recent labs Reinforced low cholesterol diet Continue Atorvastatin 40 mg QD Will recheck her labs and fasting lipids in 6 months for follow-up (3) Postsurgical hypothyroidism: Comment: S/P total thyroidectomy Code(s): E89.0 - Postprocedural hypothyroidism Plan: TFTs were normal on her recent labs Continue Levothyroxine 100 mcg QD Follow-up with endocrinology as scheduled (4) Migraine: Code(s): G43.909 - Migraine, unspecified, not intractable, without status migrainosus Qualifiers: Migraine type: unspecified Status migrainosus presence: without status migrainosus Intractability: not intractable Qualified Code(s): G43.909 - Migraine, unspecified, not intractable, without status migrainosus Plan: Reinforced avoidance of potential migraine triggers Continue Ibuprofen or Tylenol PRN for symptomatic relief and Ondansetron 4 mg TID PRN for nausea/vomiting Will start her again on prophylactic Tx with Topiramate 25 mg Q HS - she was previously started on a trial of Topiramate 25 mg Q HS but she chose not to take it as her headaches were reportedly subsiding at the time (5) Vitamin D deficiency: Code(s): E55.9 - Vitamin D deficiency, unspecified Plan: Corrected - continue Vitamin D3 2000 units QD (6) Constipation: Code(s): K59.00 - Constipation, unspecified Qualifiers: Constipation type: unspecified constipation type Qualified Code(s): K59 .00 - Constipation, unspecified Plan: Encouraged increased oral fluids and dietary fiber Continue MiraLax 17 gm QD (7) Overweight (BMI 25.0-29.9): Code(s): E66.3 - Overweight Plan: Reinforced diet/exercise as tolerated/lose weight (8) Breast cancer screening by mammogram: Code(s): Z12.31 - Encounter for screening mammogram for malignant neoplasm of breast Plan: Will send her for repeat annual mammography Plan Follow up in 6 months Orders: Orders Comprehensive [place]. Panel Fast 6 Months E78.00 - Pure hypercholesterolemia, unspecified Lipid Panel 6 Months E78.00 - Pure hypercholesterolemia, unspecified Free T4 (Free Thyroxine) 6 Months E03.9 - Hypothyroidism, unspecified UA CC w/rflx Micro + Cult 6 Months R30.0 - Dysuria Vitamin D 25-OH Total 6 Months E55.9 - Vitamin D deficiency, unspecified MM tomosynthesis screening BI Today Z12.31 - Encounter for screening mammogram for malignant neoplasm of breast Complete Blood Count Auto Diff 6 Months D64.9 - Anemia, unspecified Thyroid Stimulating Hormone 6 Months E03.9 - Hypothyroidism, unspecified Medications: New topiramate 25 mg PO BEDTIME 90 days 90 tabs 1RF Refilled mometasone 50 mcg/actuation 2 sprays intranasal DAILY 30 days 17 grams 12RF Coding Level of Care Code Est Pt Prev Care 40-64y(37592) Diagnoses Annual physical exam Z00.00 Pure hypercholesterolemia E78.00 Postsurgical hypothyroidism E89.0 Migraine without status migrainosus, not intractable, unspecified migraine type G43.909 Migraine type: unspecified Status migrainosus presence: without status migrainosus Intractability: not intractable Vitamin D deficiency E55.9 Constipation, unspecified constipation type K59.00 Constipation type: unspecified constipation type Overweight (BMI 25.0-29.9) E66.3 Breast cancer screening by mammogram Z12.31 Additional Codes MARY-7 Assessment Billing - MARY-7 Assessment Tool: MARY-7 Assessment 93953 ([id number])
== END 2023-09-08 13:31 | disposition home or self-care (01) ==
PROVIDERS: PCP Internal Medicine; Visit Provider Internal Medicine
DX: Z00.00 Encounter for general adult medical examination without abnormal findings (principal); E78.00 Pure hypercholesterolemia, unspecified; E89.0 Postprocedural hypothyroidism; G43.909 Migraine, unspecified, not intractable, without status migrainosus; E55.9 Vitamin D deficiency, unspecified; K59.00 Constipation, unspecified; E66.3 Overweight; Z12.31 Encounter for screening mammogram for malignant neoplasm of breast
CPT/HCPCS: 99396

== ENCOUNTER 2023-10-27 15:00 | Outpatient (AMB) | payer OTHER, SELFPAY ==
[2023-10-27 15:38] VITALS: BP 126/78; PULSE 76; O2SAT 99; BMI 24.6
--- NOTE | 2023-10-27 15:38 | A.OFFPC_ITS ---
Vital Signs 10/27/23 15:38 Height 5 ft 1 in Weight 130 lb 6 oz BMI 24.6 BP 126/78 Blood Pressure Location Lt brachial Position Sitting Pulse 76 Pulse Source Pulse Oximeter Pulse Oximetry (%) 99 Oxygen Delivery Method Room Air Intake Visit Reasons: painful lump on her left ear area Intake Note: The patient is presenting with a lump, possibly an abscess, near the left ear canal for the past four days, which is worsening and causing headaches. 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 Accompanied by: Self / Same As Patient Allergies No Known Allergies Allergy (Verified 10/27/23 16:12) Medication List - Last Reconciled 10/27/23 by Lawrence Mcgregor MD atorvastatin 40 mg PO DAILY 90 days cholecalciferol (vitamin D3) 50 mcg PO DAILY loperamide (Imodium A-D) 2 mg PO Q6H PRN mometasone 50 mcg/actuation 2 sprays intranasal DAILY 30 days naphazoline-pheniramine 0.025-0.3 % (Allergy Eye (naphazoline-pheniramine)) 1 drp ophthalmic (eye) BID-QID PRN ondansetron 4 mg PO Q8H PRN polyethylene glycol 3350 (Miralax) 17 grams PO DAILY simethicone (Gas-X Extra Strength) 125 mg PO TID-QID PRN Synthroid (levothyroxine) 75 mcg PO DAILY NS Synthroid (levothyroxine) 88 mcg PO .qod NS topiramate 25 mg PO BEDTIME 90 days triamcinolone acetonide 0.1% 1 appl dental BID PRN 7 days triamcinolone acetonide 0.5% 1 appl topical BID PRN Tobacco use date assessed: 09/08/23 Dental Screening Dental Screen Date: 09/08/23 HPI painful lump on her left ear area HPI Details Patient comes in today complaining of a painful lump just in front of her left ear, which she states has been present for the past 4 days (since 10/23/23) Feels that this is causing her to have recurrent and increased headaches lately and aggravating her previous headaches She denies any ear pain or fever; denies any recent sore throat or cough or cold symptoms She denies any chest pains, no shortness of breath No nausea/ vomiting, no abdominal pain No change in bowel habits noted [facility] Medical History Constipation Migraine Chronic headache Overweight (BMI 25.0-29.9) Vitamin D deficiency Postsurgical hypothyroidism Pure hypercholesterolemia Thyroid cancer Surgical History Hx of colonoscopy H/O total thyroidectomy Family History Mother Coronary artery disease Father Coronary artery disease Social History Housing: House Alcohol intake: never Patient Tobacco Use Status: Never used Tobacco e-Cigarette/Vaping Use: Never Used Second Hand Smoke Exposure: No service: No Current occupational status: employed 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 Depression Screening Interpretation: Negative Depression Screening Done: Yes Source: Developed by Drs. Spencer Pack, Mariann Kelley, Jon Huang and colleagues, with an educational yulissa from [employer]. Thrive Questionnaire Date Thrive assessed: 09/08/23 Currently or been in a relationship where the following occur: no concerns reported THRIVE Score: 0 MARY-7 AMB Questionnaire MARY-7 Date MARY - 7 assessed: 09/08/23 Source: Developed by Drs. Spencer Pack, Jon Bundy and colleagues, with an educational yulissa from [employer]. Review of Systems Const Denies chills, Denies fatigue, Denies fever(s) and Reports headache(s) (recurrent) ENT Denies dysphagia, Denies dizziness, Denies otalgia, Reports headache(s) (recurrent), Denies nasal congestion, Denies neck pain, Denies odynophagia and Denies sore throat Card Denies chest pain, Denies rapid heart rate, Denies irregular heart rhythm, Denies palpitations and Denies dyspnea Resp Denies chest congestion, Denies cough, Denies dyspnea and Denies wheezing GI Denies abdominal pain, Denies constipation, Denies dysphagia, Denies diarrhea, Reports nausea (on and off, associated with her headaches), Denies odynophagia and Denies vomiting Denies hematuria, Denies urinary frequency, Denies dysuria, Denies urinary incontinence and Denies urinary urgency Musc Denies back pain, Denies arthralgias and Denies neck pain Skin/Breast Details: (+) small painful nodular lesion over the left preauricular area Denies rash Neuro Denies dizziness, Reports headache(s) (recurrent) and Denies paresthesias Psych Denies anxiety and Denies depression Endo Denies fatigue and Denies palpitations Cameron/Lymph Denies easy bruising Aller/Immun Denies wheezing Physical exam (Primary Care) Vital Signs: Last Vital Signs Pulse 76 10/27/23 15:38 BP 126/78 10/27/23 15:38 Pulse Ox 99 10/27/23 15:38 Oxygen Delivery Method Room Air 10/27/23 15:38 BMI result Body Mass Index 24.6 Tobacco/Smoking Status: Tobacco use Status Tobacco use date assessed 09/08/23 10/27/23 15:44 Patient Tobacco Use Status Never used Tobacco 10/27/23 15:44 e-Cigarette/Vaping Use Never Used 10/27/23 15:44 Depression Screening Interpretation: Negative Thrive Assessment: Date of Thrive Assessment Date Thrive assessed 09/08/23 10/27/23 15:44 Currently or been in a relationship where the following occur: no concerns reported Const General: no acute distress and alert HENMT Other: (+) small, tender, nodular lesion noted over the left preauricular area, just anterior to the opening of the left ear Ears: TM's normal bilaterally and EAC's normal Throat: Yes posterior oropharynx normal and Yes tonsils normal (no TP congestion) Neck Neck: Yes no lymphadenopathy and Yes supple Thyroid: Thyroid normal Resp Auscultation: clear to auscultation bilaterally, no rales and no wheezes Cardio Rate: regular rate Rhythm: regular rhythm Heart sounds: no murmurs GI Palpation (GI): Soft to palpation and nontender Auscultation: normal bowel sounds General: Yes no CVA tenderness Back/Spine/Pelvis Back: no CVA tenderness Thoracic/Lumbar Spine: thoracic and lumbar spine normal to inspection Skin Rashes: no rashes Extrem General: Yes no clubbing, cyanosis or edema Assessment and Plan Assessment & Plan (1) Lymphadenitis, acute: Code(s): L04.9 - Acute lymphadenitis, unspecified Plan: Will start patient on a trial of Cephalexin 500 mg Q 6 hours x 7 days Patient is advised to call if her symptoms do not improve or resolve with Abx Tx - will then need to refer her for further evaluation Plan Follow up as scheduled in March 2024 Medications: New cephalexin 500 mg PO Q6H 7 days 28 caps 0RF Coding Level of Care Code Est Pt Level 3 (53782) Diagnoses Lymphadenitis, acute L04.9
== END 2023-10-27 16:31 | disposition home or self-care (01) ==
PROVIDERS: PCP Internal Medicine; Visit Provider Internal Medicine
DX: L04.9 Acute lymphadenitis, unspecified (principal)
CPT/HCPCS: 99213

== ENCOUNTER 2024-02-27 09:51 | Outpatient (AMB) | payer OTHER, SELFPAY ==
[2024-02-27 09:52] VITALS: BP 126/72; PULSE 60; O2SAT 98; BMI 25.9
--- NOTE | 2024-02-27 09:52 | MHC.PC.OV ---
Vital Signs 02/27/24 09:52 Height 5 ft 1 in Weight 137 lb BMI 25.9 BP 126/72 Blood Pressure Location Lt brachial Position Sitting Pulse 60 Pulse Source Pulse Oximeter Pulse Oximetry (%) 98 Oxygen Delivery Method Room Air Intake Visit Reasons: Cough/seen at Urgent Care Intake Note: pt seen at [facility] 02/21/24 for a persistent cough. Captain/Check Airman Required: No Allergies No Known Allergies Allergy (Verified 02/27/24 09:52) Medication List - Last Reconciled 02/27/24 by Diana Rizvi PA-C atorvastatin 40 mg PO DAILY 90 days cholecalciferol (vitamin D3) 50 mcg PO DAILY levothyroxine TAKE 1 TABLET BY MOUTH EVERY OTHER DAY loperamide (Imodium A-D) 2 mg PO Q6H PRN mometasone 50 mcg/actuation 2 sprays intranasal DAILY 30 days naphazoline-pheniramine 0.025-0.3 % (Allergy Eye (naphazoline-pheniramine)) 1 drp ophthalmic (eye) BID-QID PRN ondansetron 4 mg PO Q8H PRN polyethylene glycol 3350 (Miralax) 17 grams PO DAILY simethicone (Gas-X Extra Strength) 125 mg PO TID-QID PRN Synthroid (levothyroxine) 75 mcg PO DAILY NS topiramate 25 mg PO BEDTIME 90 days triamcinolone acetonide 0.1% 1 appl dental BID PRN 7 days triamcinolone acetonide 0.5% 1 appl topical BID PRN Tobacco use date assessed: 09/08/23 Dental Screening Dental Screen Date: 09/08/23 HPI Cough/seen at Urgent Care HPI Details 53-year-old female with past medical history hypercholesterolemia, postsurgical hypothyroidism, history of thyroid cancer, and migraines last seen by Dr. Mcgregor October 2023 coming in for follow up. Patient states she tested positive for COVID on February 14 and has been seen by the urgent care twice since then for persistent cough. Initially she was given Tylenol with codeine which she had adverse reaction to and return to urgent care and was given Tessalon Perles and found this moderately helpful. Today she mentioned she is feeling overall much better and has returned to work however she does still continue to have a persistent dry cough. Denies fevers, chest pain, or phlegm production. She has used [id number]-[id number] Robitussin without good relief. 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 How often do you have a drink containing alcohol?: Never 3. How often do you have six or more drinks on one occasion?: Never Total Score: 0 Score Reviewed/Action Taken: Yes MARY-7 AMB Questionnaire MARY-7 Date MARY - 7 assessed: 09/08/23 Source: Developed by Drs. Spencer Pack, Mariann Kelley, Jon Huang and colleagues, with an educational yulissa from [employer]. Review of Systems Const Denies body aches, Denies chills, Denies fever(s), Denies headache(s) and Denies poor appetite Eyes Reports no additional complaints ENT Denies dizziness and Denies headache(s) Card Denies chest pain and Denies dyspnea Resp Reports cough, Denies hemoptysis, Denies excessive phlegm production and Denies dyspnea GI Reports no additional complaints Reports no additional complaints Musc Reports no additional complaints and Denies abnormal gait Skin/Breast Reports system reviewed and no additional complaints, except as documented Neuro Denies abnormal gait, Denies dizziness and Denies headache(s) Psych Reports no additional complaints Physical exam (Primary Care) Vital Signs: Last Vital Signs Pulse 60 02/27/24 09:52 BP 126/72 02/27/24 09:52 Pulse Ox 98 02/27/24 09:52 Oxygen Delivery Method Room Air 02/27/24 09:52 BMI result Body Mass Index 25.9 Tobacco/Smoking Status: Tobacco use Status Tobacco use date assessed 09/08/23 02/27/24 09:55 Patient Tobacco Use Status Never used Tobacco 02/27/24 09:55 e-Cigarette/Vaping Use Never Used 02/27/24 09:55 Thrive Assessment: Date of Thrive Assessment Date Thrive assessed 09/08/23 02/27/24 09:55 Const General: cooperative, healthy appearing, comfortable and no acute distress Orientation/consciousness: patient oriented x3 HENMT Head: Yes normocephalic Ears: hearing grossly normal bilaterally General nose exam: Normal external nose present Eyes General: appearance normal, both eyes and all related structures Conjunctivae: conjunctivae normal Neck Neck: Yes full ROM and Yes no lymphadenopathy Resp Effort & Inspection: normal respiratory effort Auscultation: clear to auscultation bilaterally, no crackles, no rales, no rhonchi and no wheezes Cardio Rate: regular rate Rhythm: regular rhythm Skin General skin exam: no rashes or lesions noted Neuro General: patient oriented x3 Gait exam (Neuro): Normal gait present Psych Affect: normal affect Attitude: cooperative Insight: Good insight present (Psych) Judgement: Good judgement present (Psych) Assessment and Plan Assessment & Plan (1) Cough: Code(s): R05.9 - Cough, unspecified Plan: Patient continues to have persistent dry cough. Reassurance was provided that this is a common symptom post COVID and the cough may remain for several weeks. If she develops symptoms suggestive of pneumonia to reach out to the office for re-evaluation. Patient may use [id number]-[id number] antitussives for symptom management. Offered benzonatate but was declined at this visit. Follow up as needed for this concern. Plan This note was constructed using voice recognition software. While every effort has been made to ensure accuracy and detention officer, still areas may have been included sometimes these areas may affect the content or meeting of the given symptoms. Total time spent caring for the patient today was 25 minutes. This includes time spent before the visit reviewing the chart, time spent during the visit, and time spent after the visit and documentation. Coding Level of Care Code Est Pt Level 3 (00509) Diagnoses Cough R05.9
== END 2024-02-27 10:10 | disposition home or self-care (01) ==
PROVIDERS: PCP Internal Medicine
DX: R05.9 Cough, unspecified (principal)
CPT/HCPCS: 99213

== ENCOUNTER 2024-03-04 11:50 | Outpatient (REF) | payer OTHER, SELFPAY ==
[2024-03-04 14:45] LABS: Free T4 (Free Thyroxine) 1.09 ng/dL (0.71-1.85); Thyroid Stimulating Hormone 1.71 uIU/mL (0.32-4.0)
== END 2024-03-04 11:51 | disposition home or self-care (01) ==
LOC: HO.10HDL 11:50
PROVIDERS: Visit Provider Internal Medicine Endocrinology, Diabetes & Metabolism
DX: C73 Malignant neoplasm of thyroid gland (principal)
CPT/HCPCS: 36415; 84439; 84443

== ENCOUNTER 2024-03-05 11:04 | Outpatient (AMB) | payer OTHER, SELFPAY ==
[2024-03-05 11:13] VITALS: BP 114/68; PULSE 68; BMI 25.4
--- NOTE | 2024-03-05 11:13 | MHC.OFFVIS ---
Vital Signs 03/05/24 11:13 Height 5 ft 1 in Weight 134 lb 11.239 oz BMI 25.4 BP 114/68 Blood Pressure Location Lt brachial Position Sitting Pulse 68 Pulse Source Pulse Oximeter Intake Visit Reasons: f/u thyroid cancer-lvm Intake Note: Patient present today for Thyroid cancer follow up visit. Hired Help Required: No Accompanied by: Self / Same As Patient Allergies No Known Allergies Allergy (Verified 03/05/24 11:15) Medication List - Last Reconciled 03/05/24 by Spencer Poole MD atorvastatin 40 mg PO DAILY 90 days cholecalciferol (vitamin D3) 50 mcg PO DAILY levothyroxine TAKE 1 TABLET BY MOUTH EVERY OTHER DAY loperamide (Imodium A-D) 2 mg PO Q6H PRN mometasone 50 mcg/actuation 2 sprays intranasal DAILY 30 days naphazoline-pheniramine 0.025-0.3 % (Allergy Eye (naphazoline-pheniramine)) 1 drp ophthalmic (eye) BID-QID PRN ondansetron 4 mg PO Q8H PRN polyethylene glycol 3350 (Miralax) 17 grams PO DAILY simethicone (Gas-X Extra Strength) 125 mg PO TID-QID PRN Synthroid (levothyroxine) 75 mcg PO DAILY NS topiramate 25 mg PO BEDTIME 90 days triamcinolone acetonide 0.1% 1 appl dental BID PRN 7 days triamcinolone acetonide 0.5% 1 appl topical BID PRN HPI Comments Details: This is a 52-year-old female with a history of papillary cancer s/p total thyroidectomy with modified neck dissection in 2007 previous patient of [facility] endocrine and then seen by Dr. Do at which was [facility] . thyroid cancer was multicentric with largest focus 1.8 cm. Patient underwent treatment radioactive iodine 158 mCi. She has had negative thyroglobulin including stimulated thyroglobulin which was indeterminate . She also underwent a biopsy of the lymph node that was negative in the past. She is currently on levothyroxine 75 mcg for some time. No sx of hypothyroidism or hyperthyroidism she recently underwent an FNA of a level 1 B lymph node by Interventional Radiology that showed lymphocytes but no evidence of metastatic cancer. A thyroglobulin washout was indeterminate [facility] Medical History Constipation Migraine Chronic headache Overweight (BMI 25.0-29.9) Vitamin D deficiency Postsurgical hypothyroidism Pure hypercholesterolemia Thyroid cancer Surgical History Hx of colonoscopy H/O total thyroidectomy Family History Mother Coronary artery disease Father Coronary artery disease Social History Housing: House Alcohol intake: never Patient Tobacco Use Status: Never used Tobacco e-Cigarette/Vaping Use: Never Used Second Hand Smoke Exposure: No service: No Current occupational status: employed 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 there is a scar in the neck status post total thyroidectomy pre. There is no cervical adenopathy palpated. Lungs CTA. Heart S1, S2 Reg R/R -M/R/G. Abdominal exam benign. Skin exam reveals absence of dryness or thyroid dermopathy or vitiligo. Nail exam reveals absence of thyroid acropachy or oncholysis. Neurologic exam reveals 2+ reflexes . Muscle Strength is 5/5 proximally. There are no tremors in upper extremities. Assessment & Plan Assessment & Plan (1) Postsurgical hypothyroidism: Comment: S/P total thyroidectomy Code(s): E89.0 - Postprocedural hypothyroidism Category: Medical Plan: This is a 53-year-old female with a history of multicentric papillary cancer status post total thyroidectomy radioactive iodine therapy in 2006. Currently replaced with 88mcg levothyroxine alt with 75 ug she underwent an FNA of a level 1 B lymph node with benign cytology thyroglobulin washout suggesting no metastatic disease. She is currently clinically and biochemically euthyroid. A subsequent ultrasound obtained at [facility] showed no recurrence of persistence of thyroid cancer Plan is to continue the current regimen. Can speak to patient about following up with Dr. Jasmine boiler reliner joining our office with expertise in thyroid and neck ultrasound (2) Thyroid cancer: Code(s): C73 - Malignant neoplasm of thyroid gland Category: Medical Plan: Plan as above Coding Level of Care Code Est Pt Level 3 (81344) Diagnoses Postsurgical hypothyroidism E89.0 Thyroid cancer C73
== END 2024-03-05 11:27 | disposition home or self-care (01) ==
PROVIDERS: PCP Internal Medicine; Visit Provider Internal Medicine Endocrinology, Diabetes & Metabolism
DX: E89.0 Postprocedural hypothyroidism (principal); C73 Malignant neoplasm of thyroid gland
CPT/HCPCS: 99213

== ENCOUNTER → 2024-03-05 11:04 | Outpatient (BNVA) | payer OTHER, SELFPAY | PROVIDERS: PCP Internal Medicine; Visit Provider Internal Medicine Endocrinology, Diabetes & Metabolism ==

== ENCOUNTER 2024-06-06 12:09 | Outpatient (REF) | payer OTHER, SELFPAY ==
[2024-06-06 12:29] LABS: MANUAL DIFF FLAG NO
[2024-06-06 13:41] LABS: Basophils Percent Auto 0.6 % (0-2); Eosinophils Absolute Auto 0.2 X10*3/uL (0.0-0.4); Hematocrit 37.2 % (37.0-47.0); Hemoglobin 13.1 g/dl (12.0-16.0); Imm Gran Abs Auto 0.01 X10*3/uL (0.00-0.03); Imm Gran Pct Auto 0.2 % (0.0-0.4); Lymphocytes Absolute Auto 1.2 X10*3/uL (1.2-4.9); Lymphocytes Percent Auto 25.8 % (20-40); Mean Corpuscular HGB Conc 35.2 g/dl (31.0-35.0); Mean Corpuscular Hemoglobin 30.5 pg (27.0-33.0); Mean Corpuscular Volume 86.5 fL (80.0-98.0); Mean Platelet Volume 10.1 fL (9.4-12.3); Monocytes Absolute Auto 0.3 X10*3/uL (0.1-1.2); Neutrophils Percent Auto 63.4 % (45-73); Platelet Count 286 X10*3/uL (160-400); Red Cell Distribution Width 12.8 % (11.0-16.0); White Blood Count 4.8 X10*3/uL (4.8-10.8)
[2024-06-06 13:49] LABS: Appearance Urine Clear; Color Urine Yellow; Glucose Urine UA Negative (Negative); Leukocyte Esterase Urine Trace (Negative); Nitrite Urine Negative (Negative); PH 5.5 (5.0-9.0); Specific Gravity - Urine <= 1.005 (1.005-1.025); UMIC TRIGGER UACC YES; Urine Blood Negative (Negative); Urine Ketones Negative (Negative); Urine Protein Negative (Neg-Trace)
[2024-06-06 13:54] LABS: Bacteria Urine None Seen (None Seen); Hyaline Casts Urine 0-2 /LPF (0-2); RBC Urine 0-2 /HPF (0-2); Squamous Epithelial Cell Urine 0-2 /HPF (0-2); WBC Urine 0-5 /HPF (0-5)
[2024-06-06 14:23] LABS: Alanine Aminotransferase 27 U/L (0-31); Albumin Level 4.3 g/dL (3.5-5.0); Alkaline Phosphatase 89 U/L (39-117); Anion Gap 13 (12-20); Aspartate Amino Transferase 24 U/L (5-31); Bilirubin Total 0.7 mg/dL (0.0-1.0); Blood Urea Nitrogen 7 mg/dL (9-16); Calcium 8.9 mg/dL (8.4-10.2); Carbon Dioxide 24 mmol/L (22-29); Chloride 109 mmol/L (96-108); Cholesterol 115 mg/dL (<200); Estimated Glomerular Filt Rate > 60; Glucose Fasting 94 mg/dL (60-99); HDL Cholesterol 64 mg/dL (>40); LDL Cholesterol Calculated 38 mg/dL (<100); Potassium 3.5 mmol/L (3.3-5.1); Sodium 142 mmol/L (135-145); Total Protein 7.2 g/dL (6.5-8.0); Triglycerides 67 mg/dL (<150)
[2024-06-06 14:28] LABS: Free T4 (Free Thyroxine) 1.26 ng/dL (0.71-1.85); Thyroid Stimulating Hormone 0.69 uIU/mL (0.32-4.0); Vitamin D 25-OH Total 54.3 ng/mL (>30)
== END 2024-06-06 12:10 | disposition home or self-care (01) ==
LOC: HO.LAB 12:09
PROVIDERS: PCP Internal Medicine; Visit Provider Internal Medicine
DX: E78.00 Pure hypercholesterolemia, unspecified (principal); E03.9 Hypothyroidism, unspecified; E55.9 Vitamin D deficiency, unspecified; D64.9 Anemia, unspecified
CPT/HCPCS: 36415; 80053; 80061; 81001; 82306; 84439; 84443; 85025

== ENCOUNTER 2024-06-07 13:31 | Outpatient (AMB) | payer OTHER, SELFPAY ==
[2024-06-07 13:36] VITALS: BP 126/74; PULSE 65; O2SAT 99; BMI 25.2
--- NOTE | 2024-06-07 13:36 | MHC.PC.OV ---
Vital Signs 06/07/24 13:36 Height 5 ft 1 in Weight 133 lb 4 oz BMI 25.2 BP 126/74 Blood Pressure Location Lt brachial Position Sitting Pulse 65 Pulse Source Pulse Oximeter Pulse Oximetry (%) 99 Oxygen Delivery Method Room Air Intake Visit Reasons: hyperlipidemia, migraine, hypothyroidism Clinical Informatics Specialist Required: No Accompanied by: Self / Same As Patient Allergies No Known Allergies Allergy (Verified 06/07/24 13:50) Medication List - Last Reconciled 06/07/24 by Lawrence Mcgregor MD atorvastatin 40 mg PO DAILY 90 days cholecalciferol (vitamin D3) 50 mcg PO DAILY levothyroxine TAKE 1 TABLET BY MOUTH EVERY OTHER DAY loperamide (Imodium A-D) 2 mg PO Q6H PRN mometasone 50 mcg/actuation 2 sprays intranasal DAILY 30 days naphazoline-pheniramine 0.025-0.3 % (Allergy Eye (naphazoline-pheniramine)) 1 drp ophthalmic (eye) BID-QID PRN ondansetron 4 mg PO Q8H PRN polyethylene glycol 3350 (Miralax) 17 grams PO DAILY simethicone (Gas-X Extra Strength) 125 mg PO TID-QID PRN Synthroid (levothyroxine) 75 mcg PO DAILY NS topiramate 25 mg PO BEDTIME 90 days triamcinolone acetonide 0.1% 1 appl dental BID PRN 7 days triamcinolone acetonide 0.5% 1 appl topical BID PRN Tobacco use date assessed: 09/08/23 Dental Screening Dental Screen Date: 09/08/23 HPI hyperlipidemia, migraine, hypothyroidism HPI Details Patient comes in today for her follow up visit States that she currently feels okay but recalls waking up a couple of days ago with increased abdominal (epigastric) pain States that her abdominal pain gradually subsided after some bowel movements States that she normally takes Miralax everyday for her bowels and does not recall having any issues with bowel movements (was not constipated) lately She did not experience any nausea or vomiting at the time and states that her abdominal pain has not recurred since She denies any fever, dizziness or increased headaches lately Denies any chest pains, no SOB No nausea/vomiting, no abdominal pain No change in bowel habits noted She had her follow up labs done yesterday - to discuss her results She also brought in a copy of her chest CT results done back in 2010 at [facility], which indicated that she had a 3mm noncalcified pulmonary nodule in the right lower lobe at the time and recommended follow up CT but she states that she has not had a follow up CT ordered since then Adds that she tested positive for COVID back in January 2024 and was experiencing increased coughing for a while but did not have any other significant issues or increased SOB back then [facility] Medical History Constipation Migraine Chronic headache Overweight (BMI 25.0-29.9) Vitamin D deficiency Postsurgical hypothyroidism Pure hypercholesterolemia Thyroid cancer Surgical History Hx of colonoscopy H/O total thyroidectomy Family History Mother Coronary artery disease Father Coronary artery disease Social History Housing: House Alcohol intake: never Patient Tobacco Use Status: Never used Tobacco e-Cigarette/Vaping Use: Never Used Second Hand Smoke Exposure: No service: No Current occupational status: employed 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 How many drinks containing alcohol do you have on a typical day when you are drinking?: 1 or 2 3. How often do you have six or more drinks on one occasion?: Never Total Score: 0 MARY-7 AMB Questionnaire MARY-7 Date MARY - 7 assessed: 09/08/23 Source: Developed by Drs. Spencer Pack, Mariann Kelley, Jon Huang and colleagues, with an educational yulissa from [employer]. Review of Systems Const Denies chills, Denies fatigue, Denies fever(s) and Reports headache(s) (on and off) ENT Denies dysphagia, Denies dizziness, Denies otalgia, Reports headache(s) (on and off), Denies nasal congestion, Denies neck pain, Denies odynophagia and Denies sore throat Card Denies chest pain, Denies irregular heart rhythm, Denies palpitations and Denies dyspnea Resp Denies chest congestion, Denies cough and Denies dyspnea GI Denies abdominal pain (except for isolated incident 2 days ago - see HPI), Denies constipation, Denies dysphagia, Denies diarrhea, Denies nausea, Denies odynophagia and Denies vomiting Denies hematuria, Denies urinary frequency, Denies dysuria, Denies urinary incontinence and Denies urinary urgency Musc Denies back pain, Denies arthralgias and Denies neck pain Skin/Breast Denies rash Neuro Denies dizziness, Reports headache(s) (on and off) and Denies paresthesias Psych Denies anxiety and Denies depression Endo Denies fatigue and Denies palpitations Cameron/Lymph Denies easy bruising Physical exam (Primary Care) Vital Signs: Last Vital Signs Pulse 65 06/07/24 13:36 BP 126/74 06/07/24 13:36 Pulse Ox 99 06/07/24 13:36 Oxygen Delivery Method Room Air 06/07/24 13:36 BMI result Body Mass Index 25.2 Tobacco/Smoking Status: Tobacco use Status Tobacco use date assessed 09/08/23 06/07/24 13:37 Patient Tobacco Use Status Never used Tobacco 06/07/24 13:37 e-Cigarette/Vaping Use Never Used 06/07/24 13:37 Thrive Assessment: Date of Thrive Assessment Date Thrive assessed 09/08/23 06/07/24 13:37 Const General: no acute distress and alert HENMT Ears: TM's normal bilaterally and EAC's normal Throat: Yes posterior oropharynx normal and Yes tonsils normal (no TP congestion) Neck Neck: Yes no lymphadenopathy and Yes supple Thyroid: Thyroid normal Resp Auscultation: clear to auscultation bilaterally, no rales and no wheezes Cardio Rate: regular rate Rhythm: regular rhythm Heart sounds: no murmurs GI Palpation (GI): Soft to palpation and nontender Auscultation: normal bowel sounds General: Yes no CVA tenderness Back/Spine/Pelvis Back: no CVA tenderness Thoracic/Lumbar Spine: thoracic and lumbar spine normal to inspection Skin Rashes: no rashes Extrem General: Yes no clubbing, cyanosis or edema Results Reviewed Results Reviewed: Laboratory Tests 06/06/24 12:28 WBC 4.8 Hgb 13.1 Hct 37.2 Plt Count 286 Sodium 142 Potassium 3.5 Creatinine 0.71 Estimated GFR > 60 Fasting Glucose 94 Calcium 8.9 AST 24 ALT 27 Triglycerides 67 Cholesterol 115 LDL Cholesterol, Calc 38 HDL Cholesterol 64 25-OH Vitamin D Total 54.3 TSH 0.69 Free T4 1.26 Ur Specific [place] <= 1.005 Urine Protein Negative Urine Glucose (UA) Negative Urine Blood Negative Urine Nitrite Negative Ur Leukocyte Esterase Trace H Coding Level of Care Code Est Pt Level 4 (38590) Diagnoses Pure hypercholesterolemia E78.00 Postsurgical hypothyroidism E89.0 Thyroid cancer C73 Pulmonary nodule less than 6 mm in diameter with low risk for malignant neoplasm R91.1; Z91.89 Migraine without status migrainosus, not intractable, unspecified migraine type G43.909 Migraine type: unspecified Status migrainosus presence: without status migrainosus Intractability: not intractable Vitamin D deficiency E55.9 Constipation, unspecified constipation type K59.00 Constipation type: unspecified constipation type Overweight (BMI 25.0-29.9) E66.3 Assessment & Plan Assessment & Plan (1) Pure hypercholesterolemia: Code(s): E78.00 - Pure hypercholesterolemia, unspecified Category: Medical Plan: Results of her labs done yesterday reviewed and discussed with patient Reinforced low cholesterol diet Continue Atorvastatin 40 mg QD Will recheck her labs and fasting lipids in 4 months for follow up (2) Postsurgical hypothyroidism: Comment: S/P total thyroidectomy in 2006 Code(s): E89.0 - Postprocedural hypothyroidism Category: Medical Plan: Her TFTs were normal on her recent labs Continue Levothyroxine 88 mcg alternating with 75 mcg every other day Will recheck her TFTs in 6 months for follow up (3) Thyroid cancer: Code(s): C73 - Malignant neoplasm of thyroid gland Category: Medical Plan: (+) Hx of papillary thyroid cancer, s/p total thyroidectomy and radioactive iodine therapy in 2006 Follow up exams done so far have shown no recurrence and no metastatic disease Follow up with endocrinology as scheduled for continuing surveillance - she is scheduled to see Dr. Jasmine in August 2024 (4) Pulmonary nodule less than 6 mm in diameter with low risk for malignant neoplasm: Code(s): R91.1 - Solitary pulmonary nodule; Z91.89 - Other specified personal risk factors, not elsewhere classified Category: Medical Plan: This was seen incidentally on her chest CT done back in 2010 at [facility] - 3 mm RLL pulmonary nodule, and follow up CT was recommended but patient states that she never had another one done since Will go ahead and send her for a repeat chest CT ALEXX for follow up (5) Migraine: Code(s): G43.909 - Migraine, unspecified, not intractable, without status migrainosus Category: Medical Qualifiers: Migraine type: unspecified Status migrainosus presence: without status migrainosus Intractability: not intractable Qualified Code(s): G43.909 - Migraine, unspecified, not intractable, without status migrainosus Plan: Patient states that her headaches are again better controlled with porphylactic Tx with Topiramate 25 mg Q HS Reinforced avoidance of potential migraine triggers Continue Ibuprofen or Tylenol PRN for symptomatic relief and Ondansetron 4 mg TID PRN for nausea/vomiting (6) Vitamin D deficiency: Code(s): E55.9 - Vitamin D deficiency, unspecified Category: Medical Plan: Continue Vitamin D3 2000 units QD (7) Constipation: Code(s): K59.00 - Constipation, unspecified Category: Medical Qualifiers: Constipation type: unspecified constipation type Qualified Code(s): K59.00 - Constipation, unspecified Plan: She is again encouraged on increased oral fluids and dietary fiber Continue Miralax 17 gm QD Have advised patient that her brief bout with abdominal pain a couple of days ago could be from some stomach virus or indigestion and as she has not had any recurrence of her symptoms since, will continue to observe for now (8) Overweight (BMI 25.0-29.9): Code(s): E66.3 - Overweight Category: Medical Plan: Reinforced diet/exercise as tolerated/lose weight Plan Follow up in 6 months Orders: Orders CT chest w IV con Today R91.1 - Solitary pulmonary nodule, Z91.89 - Other specified personal risk factors, not elsewhere classified Complete Blood Count Auto Diff 6 Months D64.9 - Anemia, unspecified Free T4 (Free Thyroxine) 6 Months E03.9 - Hypothyroidism, unspecified Comprehensive [place]. Panel Fast 6 Months E78.00 - Pure hypercholesterolemia, unspecified Lipid Panel 6 Months E78.00 - Pure hypercholesterolemia, unspecified Thyroid Stimulating Hormone 6 Months E03.9 - Hypothyroidism, unspecified UA CC w/rflx Micro + Cult 6 Months R30.0 - Dysuria Vitamin D 25-OH Total 6 Months E55.9 - Vitamin D deficiency, unspecified
== END 2024-06-07 14:11 | disposition home or self-care (01) ==
PROVIDERS: PCP Internal Medicine; Visit Provider Internal Medicine
DX: E78.00 Pure hypercholesterolemia, unspecified (principal); E89.0 Postprocedural hypothyroidism; C73 Malignant neoplasm of thyroid gland; R91.1 Solitary pulmonary nodule; Z91.89 Other specified personal risk factors, not elsewhere classified; G43.909 Migraine, unspecified, not intractable, without status migrainosus; E55.9 Vitamin D deficiency, unspecified; K59.00 Constipation, unspecified; E66.3 Overweight

== ENCOUNTER → 2024-06-07 13:31 | Outpatient (BNVA) | payer OTHER, SELFPAY | PROVIDERS: PCP Internal Medicine; Visit Provider Internal Medicine ==

== ENCOUNTER 2024-07-19 12:34 | Outpatient (REF) | payer OTHER, SELFPAY ==
[2024-07-19 14:09] LABS: Blood Urea Nitrogen 11 mg/dL (9-16); Estimated Glomerular Filt Rate > 60
== END 2024-07-19 12:35 | disposition home or self-care (01) ==
LOC: HO.LAB 12:34
PROVIDERS: PCP Internal Medicine; Visit Provider Internal Medicine
DX: K59.00 Constipation, unspecified (principal)
CPT/HCPCS: 36415; 82565; 84520

== ENCOUNTER → 2024-08-20 10:15 | Outpatient (BNV) | payer OTHER, SELFPAY | PROVIDERS: PCP Internal Medicine; Visit Provider Radiology Diagnostic Radiology | DX: R91.1 Solitary pulmonary nodule (principal) | CPT/HCPCS: 71260 ==

== ENCOUNTER 2024-09-05 10:51 | Outpatient (REF) | payer OTHER, SELFPAY ==
--- OUTSIDE RECORDS SUMMARY | 2024-09-05 13:04 | XMS_ITS | Clinical Summary ---
Author Organization [facility] Address [address] [place] [address] Care Team Providers Care Web Page Developer Name Role Phone BalbirLawrence Primary Care Provider [phone] Allergies No known active allergies Medications Synthroid [...] 75+ series) 2045 Procedures * Due to [place] state law, this organization might not be sharing negative HIV tests. Procedure Name Priority Date/Time Associated Diagnosis Comments MAMMOGRAPHY Routine 09/21/2010 12:00 PM EST PAP SMEAR Routine 09/09/2010 12:00 PM EST from Last 3 Months or Most Recently Relevant to Health Maintenance Results * Due to [place] [employer] law, this organization might not be sharing negative HIV tests. * MAMMOGRAPHY (09/21/2010 12:00 PM EST) [facility] Anatomical Region Laterality Modality Other 09/21/2010 12:0 0 PM EST Historical Conversion Provider HEALTH MAINTENANC E Final Result * PAP SMEAR (09/09/2010 12:00 PM EST) Pap [facility] 09/09/2010 12:0 0 PM EST us Historical Conversion Provider HEALTH MAINTENANC E Final Result Performing Organization Address City/State/[facility] Co de Phone Number [facility] from Last 3 Months or Most Recently Relevant to Health Maintenance Insurance [facility] Care Teams Web Page Developer Relationship Specialty Start Date End Date Lawrence Mcgregor [address] [place] [address] [place] [address] PCP - General Internal Medicine 05/19/23
--- OUTSIDE RECORDS SUMMARY | 2024-09-05 13:04 | XMS_ITS | Referral Summary ---
Author Organization [facility] Address [address] [place] [address] Care Team Providers Care Licensed Psychologist Manager Name Role Phone BalbirLawrence Primary Care Provider [phone] Allergies No known active allergies Medications Synthroid [...] Not on file Procedures * Due to [place] law, this organization might not be sharing negative HIV tests. Procedure Name Priority Date/Time Associated Diagnosis Comments MAMMOGRAPHY Routine 09/21/2010 12:00 PM EST PAP SMEAR Routine 09/09/2010 12:00 PM EST from Last 3 Months or Most Recently Relevant to Health Maintenance Results * Due to [place] law, this organization might not be sharing negative HIV tests. * MAMMOGRAPHY (09/21/2010 12:00 PM EST) [facility] Anatomical Region Laterality Modality Other 09/21/2010 12:0 0 PM EST Historical Conversion Provider HEALTH MAINTENANC E Final Result * PAP SMEAR (09/09/2010 12:00 PM EST) Pap smear [facility] 09/09/2010 12:0 0 PM EST us Historical Conversion Provider HEALTH MAINTENANC E Final Result [facility] from Last 3 Months or Most Recently Relevant to Health Maintenance Insurance [employer] Care Teams Licensed Psychologist Manager Relationship Specialty Start Date End Date Lawrence Mcgregor [address] [place] [address] dr Ashley Ramirez, [place] [id number] PCP - General Internal Medicine 05/19/23
[2024-09-05 13:41] LABS: Free T4 (Free Thyroxine) 1.38 ng/dL (0.71-1.85); Thyroid Stimulating Hormone 0.94 uIU/mL (0.32-4.0)
[2024-09-06 19:09] LABS: Thyroglobulin <0.1 ng/mL; Thyroglobulin Antibodies <1 IU/mL (< or = 1)
[2024-09-08 22:24] LABS: Thyroglobulin Antibody <1 IU/mL (<=1); Thyroglobulin Level <0.1 ng/mL
== END 2024-09-05 10:52 | disposition home or self-care (01) ==
LOC: HO.LAB 10:51
PROVIDERS: PCP Internal Medicine; Visit Provider Student in an Organized Health Care Education/Training Program
DX: C73 Malignant neoplasm of thyroid gland (principal); E89.0 Postprocedural hypothyroidism
CPT/HCPCS: 36415; 84432; 84439; 84443; 86800

== ENCOUNTER 2024-09-05 10:51 | Outpatient (AMB) | payer OTHER, SELFPAY ==
[2024-09-05 10:53] VITALS: BP 118/74; PULSE 61; O2SAT 97; BMI 24.7
--- NOTE | 2024-09-05 10:53 | A.OFFVIS_ITS ---
Vital Signs 3 09/05/24 10:53 Height 5 ft 1 in Weight 130 lb 11.746 oz BMI 24.7 BP 118/74 Blood Pressure Location Lt brachial Position Sitting Pulse 61 Pulse Source Pulse Oximeter Pulse Oximetry (%) 97 Oxygen Delivery Method Room Air Intake Visit Reasons: f/u thyroid cancer Intake Note: Patient present today for thyroid cancer office visit. 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 Currently classified as CHAVA excellent response to treatment. She was initially followed by [facility] endocrinology and then Dr. Galeana at [facility] still she established care over here looks like in 2021. History of PTC in detail 01/2007: Total thyroidectomy and left modified radical neck dissection with pathology showing multifocal PTC, largest tumor 1.8 cm with a extrathyroidal extension with 4 versus 9? ? /22 lymph nodes, AJCC stage I, pT3 N1b MX, CHAVA initial intermediate risk of recurrence in the view of 9+ metastatic lymph nodes 03/2007: 152 mCi of treatment with radioactive iodine I 131 Per chart review she has had 3 Thyrogen stimulated whole-body scans that were negative for metastatic disease or any disease recurrence. 06/2018: FNA biopsy of left level 1 lymph node was negative for malignancy. 06/02/2022: Ultrasound neck showed abnormal-appearing lymph node noted at right level 1B, with thick cortex measuring 0.6 X 0.7 X 1.2 cm, and abnormal appearing left-sided lymph nodes at level 1B with 1 with Thick-it cortex measuring 1.5 X 1.1 X 1.9 cm in other abnormal with a absent hilum measuring 1 X 0.6 X 1.2 cm. Otherwise normal lymph nodes also noted. 06/22/2022: Ultrasound of the neck showed a left level 1B, 1.9 cm lymph node with the abnormal morphology with a globus shape and increased vascularity, no residual tissue in the thyroid bed. 07/01/22: FNA of a level 1 B lymph node with benign cytology suggesting no metastatic disease, thyroglobulin washout was indeterminate. 09/21/2023: Ultrasound of the neck done at [facility] where patient went for a 2nd opinion showed no evidence of abnormal lymphadenopathy. Currently patient is on levothyroxine 88 mcg and 75 mcg on alternate days. Apparently this regimen was chosen because she was having fluctuations. She is also on brand-name Synthroid but she was having issues with fluctuations in her TSH on levothyroxine. Last set of labs from May 2024 showed TSH at 0.69 with free T4 of 1.26. Denies any symptoms of hypothyroidism or hyperthyroidism. Denies any compressive symptoms. Physical exam General: sitting comfortably in no acute distress HEENT: normocephalic/atraumatic, Neck: supple, symmetrical, no palpable masses or lymph node Cardiac: normal heart sounds Pulm: normal breath sounds B/L, no added breath sounds Abd: not distended, no tenderness Extremities: no edema, no signs of myxedema Laboratory Tests 04/23/21 04/22/22 07/01/22 08:30 12:35 09:36 TSH 0.80 0.20 L Free T4 1.43 1.47 Thyroglobulin Thyroglobulin Fn Nl As 3.7 07/04/22 10/27/22 04/20/23 13:37 12:39 11:54 TSH 0.27 L 0.11 L Free T4 1.35 1.28 1.15 Thyroglobulin <0.1 L Thyroglobulin Fn Nl As 06/06/23 09/06/23 03/04/24 11:50 12:26 11:56 TSH 0.97 0.53 1.71 Free T4 1.21 1.10 1.09 Thyroglobulin Thyroglobulin Fn Nl As 06/06/24 12:28 TSH 0.69 Free T4 1.26 Thyroglobulin Thyroglobulin Fn Nl As US SOFT TISSUE NECK 06/02/22 CLINICAL INFORMATION: Malignant neoplasm of thyroid gland. Status post thyroidectomy. COMPARISON: None. TECHNIQUE: Ultrasound of the neck soft tissues is performed with high- frequency mosqueda-scale imaging and color Doppler. FINDINGS: THYROID BED: Total thyroidectomy. No residual thyroid tissue demonstrated in the thyroid bed. No cystic or solid nodules demonstrated in the thyroid bed. RIGHT NECK SOFT TISSUES: Scattered architecturally normal nodes are present. The nodes show normal fatty hilus, normal cortical thickness, and no cystic change or calcification. No abnormal color flow. The largest nodes are as follows: Level IA: 1.1 x 0.6 x 0.8 cm. Normal kimi architecture. Level IB: 0.6 x 0.7 x 1.2 cm. Abnormal kimi architecture with thick cortex. Level III: 1.8 x 0.3 x 0.5 cm. Normal kimi architecture. LEFT NECK SOFT TISSUES: Scattered architecturally normal nodes are present. The nodes show normal fatty hilus, normal cortical thickness, and no cystic change or calcification. No abnormal color flow. The largest nodes are as follows: Level IB: 1.5 x 1.1 x 1.9 cm. Abnormal kimi architecture with thick cortex. Level IB: 1.0 x 0.6 x 1.2 cm. Abnormal kimi architecture with absent hilum. Level II: 1.1 x 0.6 x 1.1 cm. Normal kimi architecture. US/US soft tiss head and/or neck IMPRESSION: 1. Total thyroidectomy with no residual tissue seen in the thyroid bed. 2. Abnormal-appearing lymph nodes level IB on right and left side. 3. Recommend continued follow-up. 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 Cognitive needs: No Hearing needs: No Vision needs: No Physical Exam Vital Signs: Last Vital Signs Pulse 61 09/05/24 10:53 BP 118/74 09/05/24 10:53 Pulse Ox 97 09/05/24 10:53 Oxygen Delivery Method Room Air 09/05/24 10:53 BMI result Body Mass Index 24.7 Assessment & Plan Assessment & Plan (1) Thyroid cancer: Code(s): C73 - Malignant neoplasm of thyroid gland Category: Medical Plan: 54-year-old female who is here today for follow up of 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 Currently classified as CHAVA excellent response to treatment. No recent thyroglobulin level in the system, however previously she has had undetectable thyroglobulin level, last checked in June 2022 when TG was undetectable with TSH of 0.27. Her last ultrasound of the neck was last here in September 2023 at [facility] which did not identify any abnormal lymphadenopathy. At this point patient is 18 years post surgery, with no recurrence. This is very reassuring. I will not get an ultrasound this year, on my exam I do not feel any abnormal lymph nodes. Patient does not have any compressive symptoms. We will plan to repeat an ultrasound of the neck in September of 2025 next. We will obtain tumor markers with thyroglobulin and thyroglobulin antibodies. Given excellent response to therapy goal TSH would be 0.5-2. Her last TSH checked in May 2024 was 0.69. However she is on a complicated regimen of levothyroxine with brand name Synthroid due to fluctuations in TSH with alternating doses of 88 mcg and 75 mcg. At this point I will try to simplify her regimen, and we will switch her to 75 mcg daily tablet Monday to Monday and 1-1/2 tablets on Sundays. This will bring her close to her current weekly dosing. We will also repeat labs in 6 weeks to identify this dose works for her. Plan: -ordered TSH, free T4, TG and TG antibody levels to be done now -change Synthroid to 75 mcg 1 tablet Monday to Monday and 1 and a half tablet on Sundays -repeat TSH, free T4 in 6 weeks after this dose change which would be sometime around 10/17/2024 -next ultrasound September 2025 -follow up in 6 months given we are trying to get her to a good dosage that works for her TSH (2) Postsurgical hypothyroidism: Comment: S/P total thyroidectomy in 2006 Code(s): E89.0 - Postprocedural hypothyroidism Category: Medical Plan: Given excellent response to therapy goal TSH would be 0.5-2. Her last TSH checked in May 2024 was 0.69. However she is on a complicated regimen of levothyroxine with brand name Synthroid due to fluctuations in TSH with alternating doses of 88 mcg and 75 mcg. At this point I will try to simplify her regimen, and we will switch her to 75 mcg daily tablet Monday to Monday and 1-1/2 tablets on Sundays. This will bring her close to her current weekly dosing. We will also repeat labs in 6 weeks to identify this dose works for her. Plan: -ordered TSH, free T4, TG and TG antibody levels to be done now -change Synthroid to 75 mcg 1 tablet Monday to Monday and 1 and a half tablet on Sundays -repeat TSH, free T4 in 6 weeks after this dose change which would be sometime around 10/17/2024 -follow up in 6 months given we are trying to get her to a good dosage that works for her TSH Plan I spent 30 minutes in reviewing the record, seeing the patient and documenting in the medical record. Orders: Orders 2 Thyroglobulin Today C73 - Malignant neoplasm of thyroid gland, E89.0 - Postprocedural hypothyroidism Thyroid Stimulating Hormone Today C73 - Malignant neoplasm of thyroid gland, E89.0 - Postprocedural hypothyroidism Free T4 (Free Thyroxine) Today C73 - Malignant neoplasm of thyroid gland, E89.0 - Postprocedural hypothyroidism Thyroglobulin Antibodies Today C73 - Malignant neoplasm of thyroid gland, E89.0 - Postprocedural hypothyroidism Thyroglobulin Tumor Marker Today C73 - Malignant neoplasm of thyroid gland, E89.0 - Postprocedural hypothyroidism Medications: Changed 2 From Synthroid (levothyroxine) Alternate 75 mcg with 88 mcg 75 mcg PO DAILY 45 tabs 2RF NS To Synthroid (levothyroxine) 75 mcg orally; Take 1 tablet Monday to Monday and 1 and a half tablet on Sundays CORTES No substitution allowed Brand name only 30 tabs 4RF NS Discontinued 2 levothyroxine Discontinued Reason: Doctor's Order TAKE 1 TABLET BY MOUTH EVERY OTHER DAY 45 tabs 1RF Patient Instructions: Do blood work today Change levothyroxine to 75 mcg daily 1 tablet Monday to Monday and 1.5 tablets on Sundays do blood work again October 17 Coding Level of Care Code Est Pt Level 4 (26804) Complex EM visit Add On G2211 Diagnoses Thyroid cancer C73 Postsurgical hypothyroidism E89.0 Time Spent (min) 30
--- OUTSIDE RECORDS SUMMARY | 2024-09-05 12:02 | XMS_ITS | Referral Summary ---
Author Organization [facility] Address [address] [place] [address] Care Team Providers Care University Dean Name Role Phone BalbirLawrence Primary Care Provider [phone] Allergies No known active allergies Medications Synthroid 88 mcg tablet Take 1 tablet (88 mcg total) by mouth once a day. 30 tablet 11 05/25/2023 Active Synthroid 75 mcg tablet Take 1 tablet (75 mcg total) by mouth once a day. 30 tablet 11 05/25/2023 Active Active Problems Problem Noted Date Diagnosed Date Allergic conjunctivitis 11/21/2013 Immunology Studies Raised Antibody Titer 013 Malignant Thyroid Neoplasm 03/22/2013 Hypothyroidism 03/22/2013 Vitamin D Deficiency 03/22/2013 Hypercholesterolemia 03/22/2013 Hyperlipidemia 03/22/2013 Aphthous Ulcer 03/22/2013 Acute Conjunctivitis 11/15/2012 Allergic Rhinitis 11/15/2012 Immunizations Immunization Administration Dates Next Due INFLUENZA, SPLIT VIRUS, TRIVALENT, PF 04/09/2013 Influenza, Trivalent, MDV, Injectable 04/11/2013 Tetanus Toxoid, Reduced Diph theria Toxoid, and Acellular Pertussis Vaccine, Adsorbed 03/29/2013 Social History Tobacco Use Types Packs/Day Years Used Date Smoking Tobacco: Never Assessed Comments Unknown Sex and Gender Information Value Date Recorded Sex Assigned at Female 05/25/2023 10:16 AM EST Legal Sex Female 12:04 AM EDT Gender Identity Female 05/25/2023 10:16 AM EST Sexual Orientation Straight 05/25/2023 10 :16 AM EST Last Filed Vital Signs Vital Sign Reading Time Taken Comments Blood Pressure 160/76 05/25/2023 2:53 PM EST Pulse 71 05/25/2023 2:53 PM EST Temperature 36.9 ??C (98.4 ??F) 11/21/2013 9:43 AM ED T Respiratory Rate - - Oxygen Saturation - - Inhaled Oxygen Concentration - - Weight 61.5 kg (135 lb 9.3 oz) 05/25/2023 2:53 P M EST Height 154.9 cm (5' 1 ) 05/25/2023 2:53 PM EST Body Mass Index 25.62 05/25/2023 2:53 PM EST Plan of Treatment Not on file Procedures * Due to [place] [employer] law, this organization might not be sharing negative HIV tests. Procedure Name Priority Date/Time Associated Diagnosis Comments MAMMOGRAPHY Routine 09/21/2010 12:00 PM EST PAP SMEAR Routine 09/09/2010 12:00 PM EST from Last 3 Months or Most Recently Relevant to Health Maintenance Results * Due to [place] [employer] law, this organization might not be sharing negative HIV tests. * MAMMOGRAPHY (09/21/2010 12:00 PM EST) [facility] Anatomical Region Laterality Modality Other 09/21/2010 12:0 0 PM EST Historical Conversion Provider HEALTH MAINTENANC E Final Result * PAP SMEAR (09/09/2010 12:00 PM EST) Pap smear [facility] 09/09/2010 12:0 0 PM EST us Historical Conversion Provider HEALTH MAINTENANC E Final Result [facility] from Last 3 Months or Most Recently Relevant to Health Maintenance Insurance HNE Care Teams University Dean Relationship Specialty Start Date End Date Lawrence Mcgregor [address] [place] [address] dr Ashley Ramirez, [place] [id number] PCP - General Internal Medicine 05/19/23
--- OUTSIDE RECORDS SUMMARY | 2024-09-05 12:02 | XMS_ITS | Clinical Summary ---
Author Organization [facility] Address [address] [place] [address] Care Team Providers Care Computed Tomography Technologist Name Role Phone BalbirLawrence Primary Care Provider [phone] Allergies No known active allergies Medications Synthroid [...] 05/25/2023 2:53 PM EST Plan of Treatment Health Maintenance Due Date Last Done Comments Cologuard 1970 Colon Cancer Screening 1970 Colonoscopy 1970 FOBT / Fit Test 1970 HIV Screening 1970 HPV and Pap Smear 1970 Hepatitis C Screening 1970 Sigmoidoscopy 1970 Pneumococcal Vaccine: Pediat kasey (0-5 Years) and At-Risk Patients (6-50 Years) (1 of 2 - PCV) 1976 Hepatitis B Vaccines (1 of 3 - 19+ 3-dose series) 1989 Pneumococcal Vaccine: 50+ Ye ars (1 of 2 - PCV) 1989 Zoster Vaccines (1 of 2) 1989 Mammogram 09/21/2012 09/21/2010 Cervical Cancer Screening 09/09/2013 Pap Smear 09/09/2013 09/09/2010 COVID-19 Vaccine (5 - 2023-2 5 season) 2024 05/17/2022, 06/17/2021, 07/31/2020, Additional history exists Influenza Vaccine (#1) 2024 3, 04/29/2022, 04/28/2021, Additional history exists Alcohol/Substance Use Screening 07/17/2024 Depression Screening and Follow-Up 07/17/2024 Social Drivers of Health Sheela ual Screening 07/17/2024 DTaP,Tdap,and Td Vaccines (3 - Td or Tdap) 05/20/2025 05/20/2015, 03/29/2013 RSV Vaccine (60+ years old a nd patients) (1 - 1-dose 75+ series) 2045 Procedures * Due to [place] state law, this organization might not be sharing negative HIV tests. Procedure Name Priority Date/Time Associated Diagnosis Comments MAMMOGRAPHY Routine 09/21/2010 12:00 PM EST PAP SMEAR Routine 09/09/2010 12:00 PM EST from Last 3 Months or Most Recently Relevant to Health Maintenance Results * Due to [place] [employer] law, this organization might not be sharing negative HIV tests. * MAMMOGRAPHY (09/21/2010 12:00 PM EST) [facility] Anatomical Region Laterality Modality Other 09/21/2010 12:0 0 PM EST Historical Conversion Provider HEALTH MAINTENANC E Final Result * PAP SMEAR (09/09/2010 12:00 PM EST) Pap smear [facility] 09/09/2010 12:0 0 PM EST us Historical Conversion Provider HEALTH MAINTENANC E Final Result Performing Organization Address City/State/[facility] Co de Phone Number [facility] from Last 3 Months or Most Recently Relevant to Health Maintenance Insurance [facility] Care Teams Computed Tomography Technologist Relationship Specialty Start Date End Date Lawrence Mcgregor [address] [place] [address] [place] [address] PCP - General Internal Medicine 05/19/23
--- OUTSIDE RECORDS SUMMARY | 2024-09-05 12:02 | XMS_ITS | Patient Health Record ---
Author Organization [facility] Address [address] [address] Care Team Providers Care Purchaser Automotive Parts Name Role Phone MC WILSON Primary Care Provider Kadie Mary Unavailable [phone] Allergies No Known Allergies Reason For Referral No Information Medications Medication SIG (Take, Route, Frequency, Duration) Notes Start Date End Date Status Clobetasol Propionate 0.05 % 1 application to affected area Externally TWICE A DAY FOR 2 WEEKS, THEN NIGHTLY for 30 days 08/29/2022 Active Clotrimazole-Betamethasone 1-0.05 % 1 application to affected area Externally Twice a day for 14 days 12/01/2022 Active Atorvastatin Calcium 40 MG 1 tablet Oral ly Once a day for 30 day(s) Active Nasonex 50 MCG/ACT 2 sprays in each nos tril Nasally Twice a day Active Levothyroxine Sodium 100 MCG 1 tablet Orally Once a day Active Caltrate 600 1500MG 1 ORAL twice daily for -3 09/2013 Active Vitamin D 2000UNIT ORAL daily for -3 05/19/2014 Active ZyrTEC Allergy 10MG 1 ORAL daily for -3 05/19/2014 Active Lotrisone 1-0.05 % 1 application to aff ected area Externally Twice a day for 14 days 08/20/2021 Active Social History Tobacco Use: Social History Observation Description Date Details (start date - stop date) Never Smoker NA - NA Tobacco Use/Smoking Question Answer Notes Are you a nonsmoker Alcohol Screen (Audit-C) Question Answer Notes Did you have a drink containing alcohol in the p ast year? No Points 0 Interpretation Negative Sexual History Question Answer Notes Had sex in the past 12 months (vaginal, oral, or anal)? No Problems Problem Type SNOMED Code ICD Code Onset Dates Problem Status W/U Status Risk Notes Problem Atopic dermatitis (42751337) Other atopic dermatitis (L20.89) Active confirmed Problem Gynecological examination normal ([id number]) Routine gynecological examination (V72.31) Active confirmed Major Plan Of Treatment Pending Test Test Name Order Date RPR 02/06/2015 Hep Be Ag 02/06/2015 Hepatitis C antibody 02/06/2015 HIV 02/06/2015 Urinalysis 08/13/2019 Urinalysis 08/20/2021 Urinalysis 07/30/2015 THIN PREP,HPV,CRIS IF HPV+ (>29YR)(DIAG) 08/29/2022 THIN PREP,HPV,CRIS IF HPV+ (>29YR)(SCRN) 08/01/2016 MM Digital Mammo Screening 08/07/2017 MM Digital Mammo Screening 08/29/2022 MM Digital Mammo Screening 08/18/2020 MM Digital Mammo Screening 08/20/2021 Next Appt Details Provider Name:Kadie aquino, 12/26/2024 09:40:00 AM, [address], [address], [place], [address], Insurance Providers Payer Name Payer Address Payer Phone Subscriber Number Group Number Insured Name Patient Relationship to Insured Coverage Start Date Coverage End Date [facility] [address] [place] [address] [phone] [id number] JUDI RODRIGUEZ Self - patient is the insured Medical (General) History Medical History History ICD Code Inconclusive mammogram R92.2 Epidermal thickening, unspecified L85.9 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
== END 2024-09-05 11:49 | disposition home or self-care (01) ==
PROVIDERS: PCP Internal Medicine; Visit Provider Student in an Organized Health Care Education/Training Program
DX: C73 Malignant neoplasm of thyroid gland (principal); E89.0 Postprocedural hypothyroidism
CPT/HCPCS: 99214

== ENCOUNTER 2024-10-17 13:10 | Outpatient (REF) | payer OTHER, SELFPAY ==
--- OUTSIDE RECORDS SUMMARY | 2024-10-17 14:23 | XMS_ITS | Referral Summary ---
Author Organization [facility] Address [address] [place] [address] Care Team Providers Care Fire Equipment Inspector Helper Name Role Phone BalbirLawrence Primary Care Provider [phone] Allergies No known active allergies Medications Synthroid [...] Not on file Procedures * Due to [place] [employer] law, this organization might not be sharing negative HIV tests. Procedure Name Priority Date/Time Associated Diagnosis Comments MAMMOGRAPHY Routine 09/21/2010 12:00 PM EST PAP SMEAR Routine 09/09/2010 12:00 PM EST from Last 3 Months or Most Recently Relevant to Health Maintenance Results * Due to [place] [employer] law, this organization might not be sharing negative HIV tests. * MAMMOGRAPHY (09/21/2010 12:00 PM EST) [facility] Anatomical Region Laterality Modality Other 09/21/2010 12:0 0 PM EST Historical Conversion Provider HEALTH MAINTENANC E Final Result * PAP SMEAR (09/09/2010 12:00 PM EST) Pap smear [facility] 09/09/2010 12:0 0 PM EST us Historical Conversion Provider HEALTH MAINTENANC E Final Result [facility] from Last 3 Months or Most Recently Relevant to Health Maintenance Insurance HNE Care Teams Fire Equipment Inspector Helper Relationship Specialty Start Date End Date Lawrence Mcgregor [address] [place] [address] dr Ashley Ramirez, [place] [phone] PCP - General Internal Medicine 05/19/23
--- OUTSIDE RECORDS SUMMARY | 2024-10-17 14:23 | XMS_ITS | Patient Health Record ---
Author Organization [facility] Address [address] [address] Care Team Providers Care Reheat Furnace Operator Name Role Phone MC WILSON Primary Care Provider Kadie Mary Unavailable [phone] Allergies No Known Allergies Reason For Referral [...] W/U Status Risk Notes Problem Atopic dermatitis (76649145) Other atopic dermatitis (L20.89) Active confirmed Problem Gynecological examination normal (065608225181110) Routine gynecological examination (V72.31) Active confirmed Major Plan Of Treatment Pending Test Test Name Order Date RPR 02/06/2015 Hep Be Ag 02/06/2015 Hepatitis C antibody 02/06/2015 HIV 02/06/2015 Urinalysis 07/30/2015 Urinalysis 08/13/2019 Urinalysis 08/20/2021 THIN PREP,HPV,CRIS IF HPV+ (>29YR)(DIAG) 08/29/2022 THIN PREP,HPV,CRIS IF HPV+ (>29YR)(SCRN) 08/01/2016 MM Digital Mammo Screening 08/07/2017 MM Digital Mammo Screening 08/29/2022 MM Digital Mammo Screening 08/18/2020 MM Digital Mammo Screening 08/20/2021 Next Appt Details Provider Name:Kadie aquino, 12/26/2024 09:40:00 AM, [address], [address], [place], [address], Insurance Providers Payer Name Payer Address Payer Phone Subscriber Number Group Number Insured Name Patient Relationship to Insured Coverage Start Date Coverage End Date [facility] [address] [place] [address] [id number] JUDI RODRIGUEZ Self - patient is [...]
--- OUTSIDE RECORDS SUMMARY | 2024-10-17 14:23 | XMS_ITS | Clinical Summary ---
Author Organization [facility] Address [address] [place] [address] Care Team Providers Care Webfocus Developer Name Role Phone BalbirLawrence Primary Care Provider [phone] Allergies No known active allergies Medications Synthroid [...] 1970 Hepatitis C Screening 1970 Sigmoidoscopy 1970 Hepatitis B Vaccines (1 of 3 - 19+ 3-dose series) 1989 Pneumococcal Vaccine: 50+ Ye ars (1 of 2 - PCV) 1989 Zoster Vaccines (1 of 2) 1989 Mammogram 09/21/2012 09/21/2010 Cervical Cancer Screening 09/09/2013 Pap Smear 09/09/2013 09/09/2010 COVID-19 Vaccine (5 - 2023-2 5 season) 2024 05/17/2022, 06/17/2021, 07/31/2020, Additional history exists Alcohol/Substance Use Screening 07/17/2024 Depression Screening and Follow-Up 07/17/2024 Social Drivers of Health Sheela ual Screening 07/17/2024 Influenza Vaccine (Season Ended) 2025 05/04/2023, 04/29/2022, 04/28/2021, Additional history exists DTaP,Tdap,and Td Vaccines (3 - Td or Tdap) 05/20/2025 05/20/2015, 03/29/2013 RSV Vaccine (60+ years old a nd patients) (1 - 1-dose 75+ series) 2045 Procedures * Due to [place] state law, this organization might not be sharing negative HIV tests. Procedure Name Priority Date/Time Associated Diagnosis Comments HM MAMMOGRAPHY Routine 09/21/2010 12:00 PM EST PAP SMEAR Routine 09/09/2010 12:00 PM EST from Last 3 Months or Most Recently Relevant to Health Maintenance Results * Due to [place] state law, this organization might not be sharing negative HIV tests. * MAMMOGRAPHY (09/21/2010 12:00 PM EST) Mammogram [facility] Anatomical Region Laterality Modality Other 09/21/2010 12:0 0 PM EST Historical Conversion Provider HEALTH MAINTENANC E Final Result * PAP SMEAR (09/09/2010 12:00 PM EST) Pap smear [facility] 09/09/2010 12:0 0 PM EST us Historical Conversion Provider HEALTH MAINTENANC E Final Result [facility] from Last 3 Months or Most Recently Relevant to Health Maintenance Insurance [facility] Care Teams Webfocus Developer Relationship Specialty Start Date End Date Balbir Lawrence [address] [place] [address] [place] [address] PCP - General Internal Medicine 05/19/23
[2024-10-17 14:38] LABS: Free T4 (Free Thyroxine) 1.22 ng/dL (0.71-1.85); Thyroid Stimulating Hormone 0.56 uIU/mL (0.32-4.0)
== END 2024-10-17 13:11 | disposition home or self-care (01) ==
LOC: HO.LAB 13:10
PROVIDERS: PCP Internal Medicine; Visit Provider Student in an Organized Health Care Education/Training Program
DX: C73 Malignant neoplasm of thyroid gland (principal)
CPT/HCPCS: 36415; 84439; 84443

== ENCOUNTER 2024-11-28 12:01 | Outpatient (REF) | payer OTHER, SELFPAY ==
[2024-11-28 12:15] LABS: MANUAL DIFF FLAG NO
[2024-11-28 12:38] LABS: Basophils Percent Auto 0.6 % (0-2); Eosinophils Absolute Auto 0.2 X10*3/uL (0.0-0.4); Eosinophils Percent Auto 4.7 % (0-4); Hematocrit 37.9 % (37.0-47.0); Hemoglobin 13.1 g/dl (12.0-16.0); Imm Gran Abs Auto 0.02 X10*3/uL (0.00-0.03); Imm Gran Pct Auto 0.4 % (0.0-0.4); Lymphocytes Absolute Auto 1.2 X10*3/uL (1.2-4.9); Lymphocytes Percent Auto 22.9 % (20-40); Mean Corpuscular HGB Conc 34.6 g/dl (31.0-35.0); Mean Corpuscular Hemoglobin 30.8 pg (27.0-33.0); Mean Corpuscular Volume 89.2 fL (80.0-98.0); Monocytes Absolute Auto 0.3 X10*3/uL (0.1-1.2); Monocytes Percent Auto 5.4 % (2-11); Neutrophils Absolute Auto 3.4 x10*3/uL (2.0-8.3); Platelet Count 295 X10*3/uL (160-400); Red Blood Count 4.25 X10*6/uL (4.20-5.50); Red Cell Distribution Width 12.8 % (11.0-16.0); White Blood Count 5.2 X10*3/uL (4.8-10.8)
[2024-11-28 12:40] LABS: Appearance Urine Clear; Color Urine Yellow; Glucose Urine UA Negative (Negative); Leukocyte Esterase Urine Negative (Negative); Nitrite Urine Negative (Negative); PH 5.5 (5.0-9.0); Specific Gravity - Urine 1.015 (1.005-1.025); Urine Blood Negative (Negative); Urine Ketones Negative (Negative); Urine Protein Negative (Neg-Trace)
--- OUTSIDE RECORDS SUMMARY | 2024-11-28 13:00 | XMS_ITS | Patient Health Record ---
Author Organization [facility] Address [address] [address] Care Team Providers Care Bale Opener Name Role Phone MC WILSON Primary Care Provider Kadie Mary Unavailable [phone] Allergies No Known Allergies Reason For Referral [...] W/U Status Risk Notes Problem Atopic dermatitis (52648550) Other atopic dermatitis (L20.89) Active confirmed Problem Gynecological examination normal ([id number]) Routine gynecological examination (V72.31) Active confirmed Major Plan Of Treatment Pending Test Test Name Order Date RPR 02/06/2015 Hep Be Ag 02/06/2015 Hepatitis C antibody 02/06/2015 HIV 02/06/2015 Urinalysis 08/13/2019 Urinalysis 08/20/2021 Urinalysis 07/30/2015 THIN PREP,HPV,CRIS IF HPV+ (>29YR)(DIAG) 08/29/2022 THIN PREP,HPV,CRIS IF HPV+ (>29YR)(SCRN) 08/01/2016 MM Digital Mammo Screening 08/07/2017 MM Digital Mammo Screening 08/18/2020 MM Digital Mammo Screening 08/20/2021 MM Digital Mammo Screening 08/29/2022 Next Appt Details Provider Name:Kadie aquino, 12/26/2024 09:40:00 AM, [address], [address], [place], [address], Insurance Providers Payer Name Payer Address Payer Phone Subscriber Number Group Number Insured Name Patient Relationship to Insured Coverage Start Date Coverage End Date [facility] [address] [place] [address] [id number] JUDI RODRIGUEZ Self - patient is [...]
--- OUTSIDE RECORDS SUMMARY | 2024-11-28 13:00 | XMS_ITS | Clinical Summary ---
Author Organization [facility] Address [address] [place] [address] Care Team Providers Care Cell Reliner Name Role Phone BalbirLawrence Primary Care Provider [phone] Allergies No known active allergies Medications Synthroid [...] 75+ series) 2045 Procedures * Due to [place] state law, this organization might not be sharing negative HIV tests. Procedure Name Priority Date/Time Associated Diagnosis Comments HM MAMMOGRAPHY Routine 09/21/2010 12:00 PM EST PAP SMEAR Routine 09/09/2010 12:00 PM EST from Last 3 Months or Most Recently Relevant to Health Maintenance Results * Due to [place] state law, this organization might not be sharing negative HIV tests. * MAMMOGRAPHY (09/21/2010 12:00 PM EST) Mammogram [facility] Anatomical Region Laterality Modality Other 09/21/2010 12:0 0 PM EST Historical Conversion Provider HEALTH MAINTENANC E Final Result * PAP SMEAR (09/09/2010 12:00 PM EST) Pap smear [facility] 09/09/2010 12:0 0 PM EST us Historical Conversion Provider HEALTH MAINTENANC E Final Result [facility] from Last 3 Months or Most Recently Relevant to Health Maintenance Insurance [facility] Care Teams Cell Reliner Relationship Specialty Start Date End Date Balbir Lawrence [address] [place] [address] [place] [address] PCP - General Internal Medicine 05/19/23
--- OUTSIDE RECORDS SUMMARY | 2024-11-28 13:00 | XMS_ITS | Referral Summary ---
Author Organization [facility] Address [address] [place] [address] Care Team Providers Care Hall Monitor Name Role Phone BalbirLawrence Primary Care Provider [phone] Allergies No known active allergies Medications Synthroid [...] Not on file Procedures * Due to [place] [employer] law, this organization might not be sharing negative HIV tests. Procedure Name Priority Date/Time Associated Diagnosis Comments MAMMOGRAPHY Routine 09/21/2010 12:00 PM EST PAP SMEAR Routine 09/09/2010 12:00 PM EST from Last 3 Months or Most Recently Relevant to Health Maintenance Results * Due to [place] [employer] law, this organization might not be sharing negative HIV tests. * MAMMOGRAPHY (09/21/2010 12:00 PM EST) Mammogram [facility] Anatomical Region Laterality Modality Other 09/21/2010 12:0 0 PM EST Historical Conversion Provider HEALTH MAINTENANC E Final Result * PAP SMEAR (09/09/2010 12:00 PM EST) Pap smear [facility] 09/09/2010 12:0 0 PM EST us Historical Conversion Provider HEALTH MAINTENANC E Final Result [facility] from Last 3 Months or Most Recently Relevant to Health Maintenance Insurance [employer]NE Care Teams Hall Monitor Relationship Specialty Start Date End Date Lawrence Mcgregor [address] [place] [address] dr Ashley Ramirez, [place] [phone] PCP - General Internal Medicine 05/19/23
[2024-11-28 13:45] LABS: Alanine Aminotransferase 51 U/L (0-31); Albumin Level 4.2 g/dL (3.5-5.0); Alkaline Phosphatase 121 U/L (39-117); Anion Gap 11 (12-20); Aspartate Amino Transferase 36 U/L (5-31); Bilirubin Total 0.6 mg/dL (0.0-1.0); Blood Urea Nitrogen 15 mg/dL (9-16); Calcium 8.5 mg/dL (8.4-10.2); Carbon Dioxide 22 mmol/L (22-29); Chloride 111 mmol/L (96-108); Cholesterol 141 mg/dL (<200); Estimated Glomerular Filt Rate > 60; Glucose Fasting 95 mg/dL (60-99); HDL Cholesterol 62 mg/dL (>40); LDL Cholesterol Calculated 55 mg/dL (<100); Potassium 3.8 mmol/L (3.3-5.1); Sodium 140 mmol/L (135-145); Total Protein 7.1 g/dL (6.5-8.0); Triglycerides 121 mg/dL (<150)
[2024-11-28 14:00] LABS: Vitamin D 25-OH Total 52.6 ng/mL (>30)
== END 2024-11-28 12:02 | disposition home or self-care (01) ==
LOC: HO.LAB 12:01
PROVIDERS: PCP Internal Medicine; Visit Provider Internal Medicine
DX: D64.9 Anemia, unspecified (principal); E78.00 Pure hypercholesterolemia, unspecified; R30.0 Dysuria; E55.9 Vitamin D deficiency, unspecified
CPT/HCPCS: 36415; 80053; 80061; 81003; 82306; 85025

== ENCOUNTER 2024-12-05 11:06 | Outpatient (AMB) | payer OTHER, SELFPAY ==
[2024-12-05 11:27] VITALS: BP 116/78; PULSE 60; O2SAT 98; BMI 24.4
--- NOTE | 2024-12-05 11:27 | A.OFFPC_ITS ---
Vital Signs 12/05/24 11:27 Height 5 ft 1 in Weight 129 lb 2 oz BMI 24.4 BP 116/78 Blood Pressure Location Lt brachial Position Sitting Pulse 60 Pulse Source Pulse Oximeter Pulse Oximetry (%) 98 Oxygen Delivery Method Room Air Intake Visit Reasons: hyperlipidemia Lisw Required: No Accompanied by: Self / Same As Patient Allergies No Known Allergies Allergy (Verified 12/05/24 11:58) Medication List - Last Reconciled 12/05/24 by Lawrence Mcgregor MD atorvastatin 40 mg PO DAILY 90 days calcium carbonate-vitamin D3 600 mg-20 mcg (800 unit) (Caltrate plus D) 1 tab PO BID cholecalciferol (vitamin D3) 50 mcg PO BID levothyroxine orally daily; Take 1 tablet Monday to Monday and 1 and a half tablet on Sundays loperamide 2 mg PO Q6H PRN mometasone 50 mcg/actuation 2 sprays intranasal DAILY naphazoline-pheniramine 0.025-0.3 % (Allergy Eye (naphazoline-pheniramine)) 1 drp ophthalmic (eye) BID-QID PRN ondansetron 4 mg PO Q8H PRN polyethylene glycol 3350 (Miralax) 17 grams PO DAILY simethicone (Gas-X Extra Strength) 125 mg PO TID-QID PRN topiramate 25 mg PO BEDTIME 90 days triamcinolone acetonide 0.1% 1 appl dental BID PRN 7 days triamcinolone acetonide 0.5% 1 appl topical BID PRN Tobacco use date assessed: 12/05/24 Dental Screening Dental Screen Date: 12/05/24 Did you have a dental visit in the last 12 months?: Yes Did you have a dental problem in the last 6 months where you did not have access to dental care?: No Was dental information given to patient?: Patient has dentist HPI hyperlipidemia HPI Details Patient comes in today for her follow up visit States that she feels okay She denies any dizziness but still has occasional headaches that are promptly relieved when she takes OTC Tylenol States that she continues to have trouble sleeping at night and thinks that her headaches are related to her lack of sleep She denies any chest pains, no SOB No nausea/vomiting, no abdominal pain No change in bowel habits noted She had her follow up labs done last week - to discuss her results [facility] Medical History Constipation Migraine Chronic headache Overweight (BMI 25.0-29.9) Vitamin D deficiency Postsurgical hypothyroidism Pure hypercholesterolemia Thyroid cancer Surgical History Hx of colonoscopy H/O total thyroidectomy Family History Mother Coronary artery disease Father Coronary artery disease Social History Housing: House Alcohol intake: never Patient Tobacco Use Status: Never used Tobacco e-Cigarette/Vaping Use: Never Used Second Hand Smoke Exposure: No service: No Current occupational status: employed 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 1. Little interest or pleasure in doing things: not at all 2. Feeling down, depressed, or hopeless: not at all 3. Trouble falling or staying asleep, or sleeping too much: several days 4. Feeling tired or having little energy: not at all 5. Poor appetite or overeating: not at all 6. Feeling bad about yourself - or that you are a failure or have let yourself or your family down: not at all 7. Trouble concentrating on things, such as reading the newspaper or watching television: not at all 8. Moving or speaking so slowly that other people could have noticed. Or the opposite - being so fidgety or restless that you have been moving around a lot more than usual: not at all 9. Thoughts that you would be better off or of hurting yourself in some way: not at all Total score: 1 Depression Screening Interpretation: Negative Depression Screening Done: Yes 41704 - PHQ-9 Billing: Yes Source: Developed by Drs. Spencer Pack, Mariann Kelley, Jon Huang and colleagues, with an educational yulissa from [employer]. Thrive Questionnaire Date Thrive assessed: 12/05/24 I am a: Patient What is your living situation today?: I have a steady place to live Within the past 12 months, did the food you bought not last and you didn't have the money to get more?: I choose not to answer this question Within the past 12 months, did you worry whether your food would run out before you got money to buy more?: Never true Do you have trouble paying for medicines?: No Do you have trouble getting transportation to medical appointments?: No Do you have trouble paying your heating and electricity bill?: No Do you have trouble taking care of your child, family member or friend?: No Do you have trouble with day-to-day activities such as bathing, preparing meals, shopping, managing finances, etc.?: No Are you currently unemployed and looking for a job?: No Are you interested in more education?: No Please select the resources that you would like help with: None Currently or been in a relationship where the following occur: I choose not to answer THRIVE Score: 0 AUDIT C Alcohol Use Questionnaire (AUDIT-C) 1. How often do you have a drink containing alcohol?: Never 3. How often do you have six or more drinks on one occasion?: Never Total Score: 0 Score Reviewed/Action Taken: Yes MARY-7 AMB Questionnaire MARY-7 Date MARY - 7 assessed: 12/05/24 Feeling nervous, anxious, or on edge: 0 = Not at all Not being able to stop or control worryin = Not at all Worrying too much about different things: 0 = Not at all Trouble relaxin = Not at all Being so restless that it is hard to sit still: 0 = Not at all Becoming easily annoyed or irritable: 0 = Not at all Feeling afraid as if something awful might happen: 0 = Not at all Total MARY-7 score (0-4 normal; 5-9 mild; 10-14 moderate; 15-21 severe): 0 Source: Developed by Drs. Spencer Pack, Mariann Kelley, Jon Huang and colleagues, with an educational yulissa from [employer]. Review of Systems Const Denies chills, Reports difficulty sleeping, Denies fatigue, Denies fever(s) and Reports headache(s) (on and off) ENT Denies dysphagia, Denies dizziness, Denies otalgia, Reports headache(s) (on and off), Denies nasal congestion, Denies neck pain, Denies odynophagia and Denies sore throat Card Denies chest pain, Denies irregular heart rhythm, Denies palpitations and Denies dyspnea Resp Denies chest congestion, Denies cough and Denies dyspnea GI Denies abdominal pain, Denies constipation, Denies dysphagia, Denies diarrhea, Denies nausea, Denies odynophagia and Denies vomiting Denies hematuria, Denies urinary frequency, Denies dysuria, Denies urinary incontinence and Denies urinary urgency Musc Denies back pain, Denies arthralgias and Denies neck pain Skin/Breast Denies rash Neuro Denies dizziness, Reports headache(s) (on and off) and Denies paresthesias Psych Denies anxiety and Denies depression Endo Denies fatigue and Denies palpitations Cameron/Lymph Denies easy bruising Physical exam (Primary Care) Vital Signs: Last Vital Signs Pulse 60 12/05/24 11:27 BP 116/78 12/05/24 11:27 Pulse Ox 98 12/05/24 11:27 Oxygen Delivery Method Room Air 12/05/24 11:27 BMI result Body Mass Index 24.4 Tobacco/Smoking Status: Tobacco use Status Tobacco use date assessed 12/05/24 12/05/24 11:33 Patient Tobacco Use Status Never used Tobacco 12/05/24 11:33 e-Cigarette/Vaping Use Never Used 12/05/24 11:33 PHQ-9: PHQ-9 Score PHQ-9: Total score 1 12/05/24 12:40 Depression Screening Interpretation: Negative Thrive Assessment: Date of Thrive Assessment Date Thrive assessed 12/05/24 12/05/24 11:33 Currently or been in a relationship where the following occur: I choose not to answer Const General: no acute distress and alert HENMT Ears: TM's normal bilaterally and EAC's normal Throat: Yes posterior oropharynx normal and Yes tonsils normal (no TP congestion) Neck Neck: Yes supple and No lymphadenopathy Thyroid: Thyroid normal Resp Auscultation: clear to auscultation bilaterally, no rales and no wheezes Cardio Rate: regular rate Rhythm: regular rhythm Heart sounds: no murmurs GI Palpation (GI): Soft to palpation and nontender Auscultation: normal bowel sounds General: Yes no CVA tenderness Back/Spine/Pelvis Back: no CVA tenderness Thoracic/Lumbar Spine: thoracic and lumbar spine normal to inspection Skin Rashes: no rashes Extrem General: Yes no clubbing, cyanosis or edema Results Reviewed Results Reviewed: Laboratory Tests 10/17/24 11/28/24 11/28/24 13:24 12:11 12:14 WBC 5.2 Hgb 13.1 Hct 37.9 Plt Count 295 Sodium 140 Potassium 3.8 Creatinine 0.67 Estimated GFR > 60 Fasting Glucose 95 Calcium 8.5 AST 36 H ALT 51 H Triglycerides 121 Cholesterol 141 LDL Cholesterol, Calc 55 HDL Cholesterol 62 25-OH Vitamin D Total 52.6 TSH 0.56 Free T4 1.22 Ur Specific [place] 1.015 Urine Protein Negative Urine Glucose (UA) Negative Urine Blood Negative Urine Nitrite Negative Ur Leukocyte Esterase Negative Coding Level of Care Code Est Pt Level 4 (23688) Diagnoses Pure hypercholesterolemia E78.00 Postsurgical hypothyroidism E89.0 Thyroid cancer C73 Pulmonary nodule less than 6 mm in diameter with low risk for malignant neoplasm R91.1; Z91.89 Migraine without status migrainosus, not intractable, unspecified migraine type G43.909 Intractability: not intractable Migraine type: unspecified Status migrainosus presence: without status migrainosus Vitamin D deficiency E55.9 Constipation, unspecified constipation type K59.00 Constipation type: unspecified constipation type Additional Codes PHQ-9 - 34386 - PHQ-9 Billing: Yes ([id number]) Assessment & Plan Assessment & Plan (1) Pure hypercholesterolemia: Code(s): E78.00 - Pure hypercholesterolemia, unspecified Category: Medical Plan: Results of her labs done last week reviewed and discussed with patient Reinforced low cholesterol diet Continue Atorvastatin 40 mg QD Will recheck her labs and fasting lipids in 6 months for follow up (2) Postsurgical hypothyroidism: Comment: S/P total thyroidectomy in 2006 Code(s): E89.0 - Postprocedural hypothyroidism Category: Medical Plan: Her TFTs were normal on her recent labs Continue Levothyroxine 88 mcg alternating with 75 mcg every other day Will recheck her TFTs in 6 months for follow up (3) Thyroid cancer: Code(s): C73 - Malignant neoplasm of thyroid gland Category: Medical Plan: (+) Hx of papillary thyroid cancer, s/p total thyroidectomy and radioactive iodine therapy in 2006 Follow up exams done so far have shown no recurrence and no metastatic disease Follow up with endocrinology (Dr. Jasmine) as scheduled for continuing surveillance (4) Pulmonary nodule less than 6 mm in diameter with low risk for malignant neoplasm: Code(s): R91.1 - Solitary pulmonary nodule; Z91.89 - Other specified personal risk factors, not elsewhere classified Category: Medical Plan: This was seen incidentally on her chest CT done back in 2010 at [facility] - 3 mm RLL pulmonary nodule, and follow up CT was recommended but patient states that she never had another one done since Repeat chest CT done for follow up in August 2024 revealed (+) 5 mm non calcified right lower lobe lung nodule Patient is advised to continue with routine surveillance (5) Migraine: Code(s): G43.909 - Migraine, unspecified, not intractable, without status migrainosus Category: Medical Qualifiers: Intractability: not intractable Migraine type: unspecified Status migrainosus presence: without status migrainosus Qualified Code(s): G43.909 - Migraine, unspecified, not intractable, without status migrainosus Plan: Patient states that her headaches are again better controlled with porphylactic Tx with Topiramate 25 mg Q HS Reinforced avoidance of potential migraine triggers Continue Ibuprofen or Tylenol PRN for symptomatic relief and Ondansetron 4 mg TID PRN for nausea/vomiting (6) Vitamin D deficiency: Code(s): E55.9 - Vitamin D deficiency, unspecified Category: Medical Plan: Continue Vitamin D3 2000 units QD (7) Constipation: Code(s): K59.00 - Constipation, unspecified Category: Medical Qualifiers: Constipation type: unspecified constipation type Qualified Code(s): K59.00 - Constipation, unspecified Plan: She is again encouraged on increased oral fluids and dietary fiber Continue Miralax 17 gm QD Plan Follow up in 6 months Orders: Orders Comprehensive [place]. Panel Fast 6 Months E78.00 - Pure hypercholesterolemia, unspecified Thyroid Stimulating Hormone 6 Months E03.9 - Hypothyroidism, unspecified Complete Blood Count Auto Diff 6 Months D64.9 - Anemia, unspecified Lipid Panel 6 Months E78.00 - Pure hypercholesterolemia, unspecified Free T4 (Free Thyroxine) 6 Months E03.9 - Hypothyroidism, unspecified
--- OUTSIDE RECORDS SUMMARY | 2024-12-05 11:45 | XMS_ITS | Referral Summary ---
Author Organization [facility] Address [address] [place] [address] Care Team Providers Care Chiropractic Doctor Name Role Phone BalbirLawrence Primary Care Provider [phone] Allergies No known active allergies Medications Synthroid [...] Not on file Procedures * Due to [place] [employer] group law, this organization might not be sharing negative HIV tests. Procedure Name Priority Date/Time Associated Diagnosis Comments MAMMOGRAPHY Routine 09/21/2010 12:00 PM EST PAP SMEAR Routine 09/09/2010 12:00 PM EST from Last 3 Months or Most Recently Relevant to Health Maintenance Results * Due to [place] [employer] group law, this organization might not be sharing negative HIV tests. * MAMMOGRAPHY (09/21/2010 12:00 PM EST) [facility] Anatomical Region Laterality Modality Other 09/21/2010 12:0 0 PM EST Historical Conversion Provider HEALTH MAINTENANC E Final Result * PAP SMEAR (09/09/2010 12:00 PM EST) Pap smear [facility] 09/09/2010 12:0 0 PM EST us Historical Conversion Provider HEALTH MAINTENANC E Final Result [facility] from Last 3 Months or Most Recently Relevant to Health Maintenance Insurance [employer] Care Teams Chiropractic Doctor Relationship Specialty Start Date End Date Lawrence Mcgregor [address] [place] [address] dr Ashley Ramirez, [place] [phone] PCP - General Internal Medicine 05/19/23
--- OUTSIDE RECORDS SUMMARY | 2024-12-05 11:45 | XMS_ITS | Patient Health Record ---
Author Organization [facility] Address [address] [address] Care Team Providers Care Tier Over Name Role Phone MC WILSON Primary Care Provider Kadie Mary Unavailable [phone] Allergies No Known Allergies Reason For Referral [...] W/U Status Risk Notes Problem Atopic dermatitis (22427652) Other atopic dermatitis (L20.89) Active confirmed Problem Gynecological examination normal ([id number]) Routine gynecological examination (V72.31) Active confirmed Major [...] 09:40:00 AM, [address], [address], [place], [address], Insurance Providers Payer Name Payer Address Payer Phone Subscriber Number Group Number Insured Name Patient Relationship to Insured Coverage Start Date Coverage End Date [facility] [address] [place] [address] [id number] JUDI RODRIGUEZ Self - patient is [...]
--- OUTSIDE RECORDS SUMMARY | 2024-12-05 11:45 | XMS_ITS | Clinical Summary ---
Author Organization [facility] Address [address] [place] [address] Care Team Providers Care Foreign Collection Clerk Name Role Phone BalbirLawrence Primary Care Provider [phone] Allergies No known active allergies Medications Synthroid [...] 75+ series) 2045 Procedures * Due to [place] state law, this organization might not be sharing negative HIV tests. Procedure Name Priority Date/Time Associated Diagnosis Comments HM MAMMOGRAPHY Routine 09/21/2010 12:00 PM EST PAP SMEAR Routine 09/09/2010 12:00 PM EST from Last 3 Months or Most Recently Relevant to Health Maintenance Results * Due to [place] state law, this organization might not be sharing negative HIV tests. * MAMMOGRAPHY (09/21/2010 12:00 PM EST) Mammogram [facility] Anatomical Region Laterality Modality Other 09/21/2010 12:0 0 PM EST Historical Conversion Provider HEALTH MAINTENANC E Final Result * PAP SMEAR (09/09/2010 12:00 PM EST) Pap smear [facility] 09/09/2010 12:0 0 PM EST us Historical Conversion Provider HEALTH MAINTENANC E Final Result [facility] from Last 3 Months or Most Recently Relevant to Health Maintenance Insurance [facility] Care Teams Foreign Collection Clerk Relationship Specialty Start Date End Date Balbir Lawrence [address] [place] [address] [place] [address] PCP - General Internal Medicine 05/19/23
== END 2024-12-05 12:11 | disposition home or self-care (01) ==
LOC: HO.HMCH 11:06
PROVIDERS: PCP Internal Medicine; Visit Provider Internal Medicine
DX: E78.00 Pure hypercholesterolemia, unspecified (principal); E89.0 Postprocedural hypothyroidism; C73 Malignant neoplasm of thyroid gland; R91.1 Solitary pulmonary nodule; Z91.89 Other specified personal risk factors, not elsewhere classified; G43.909 Migraine, unspecified, not intractable, without status migrainosus; E55.9 Vitamin D deficiency, unspecified; K59.00 Constipation, unspecified

== ENCOUNTER → 2024-12-05 11:06 | Outpatient (BNVA) | payer OTHER, SELFPAY | PROVIDERS: PCP Internal Medicine; Visit Provider Internal Medicine | DX: E78.00 Pure hypercholesterolemia, unspecified (principal); E89.0 Postprocedural hypothyroidism; C73 Malignant neoplasm of thyroid gland; R91.1 Solitary pulmonary nodule; G43.909 Migraine, unspecified, not intractable, without status migrainosus; E55.9 Vitamin D deficiency, unspecified; K59.00 Constipation, unspecified; Z79.899 Other long term (current) drug therapy; Z91.89 Other specified personal risk factors, not elsewhere classified; Z13.30 Encounter for screening examination for mental health and behavioral disorders, unspecified | CPT/HCPCS: 96127 ==

== ENCOUNTER 2025-02-26 11:23 | Outpatient (REF) | payer OTHER, SELFPAY ==
--- OUTSIDE RECORDS SUMMARY | 2025-02-26 12:20 | XMS_ITS | Referral Summary ---
Author Organization [facility] Address [address] [place] [address] Care Team Providers Care Assembly Technician Name Role Phone BalbirLawrence Primary Care Provider [phone] Allergies No known active allergies Medications Synthroid [...] 71 05/25/2023 2:53 PM EST Temperature 36.9 C (98.4 F) 11/21/2013 9:43 AM EDT Respiratory Rate - - Oxygen Saturation - - Inhaled Oxygen Concentration - - Weight 61.5 kg (135 lb 9.3 oz) 05/25/2023 2:53 P M EST Height 154.9 cm (5' 1 ) 05/25/2023 2:53 PM EST Body Mass Index 25.62 05/25/2023 2:53 PM EST Plan of Treatment Not on file Procedures * Due to [place] [employer] law, this organization might not be sharing negative HIV tests. Procedure Name Priority Date/Time Associated Diagnosis Comments MAMMOGRAPHY Routine 09/21/2010 12:00 PM EST PAP SMEAR Routine 09/09/2010 12:00 PM EST from Last 3 Months or Most Recently Relevant to Health Maintenance Results * Due to [place] [employer] law, this organization might not be sharing negative HIV tests. * MAMMOGRAPHY (09/21/2010 12:00 PM EST) Mammogram [facility] Anatomical Region Laterality Modality Other 09/21/2010 12:0 0 PM EST Historical Conversion Provider HEALTH MAINTENANC E Final Result * PAP SMEAR (09/09/2010 12:00 PM EST) Pap smear ORQUIOLA [facility] 09/09/2010 12:0 0 PM EST us Historical Conversion Provider HEALTH MAINTENANC E Final Result [facility] from Last 3 Months or Most Recently Relevant to Health Maintenance Insurance [employer] Care Teams Assembly Technician Relationship Specialty Start Date End Date Lawrence Mcgregor [address] [place] [address] [place] [address] PCP - General Internal Medicine 05/19/23
--- OUTSIDE RECORDS SUMMARY | 2025-02-26 12:20 | XMS_ITS | Patient Health Record ---
Author Organization [employer] [facility] Address [address] [address] Care Team Providers Care Brush Cutter Name Role Phone MC WILSON Primary Care Provider Kadie Mary Unavailable [phone] Allergies No Known Allergies Results Component Value Reference Range Notes Test, Urine Reviewed date:02/26/2025 10:23:43 AM Interpretation: Performing Lab: Notes/Report: Test, Urine Negative Urinalysis Reviewed date:12/26/2024 10:25:59 AM Interpretation: Performing Lab: Notes/Report: PH 5.0 PROTEIN Neg GLUCOSE Neg BLOOD Trace Reason For Referral No Information Medications Medication SIG (Take, Route, Frequency, Duration) Notes Start Date End Date Status ZyrTEC Allergy 10MG 1 ORAL daily; Durati on: -05/19/2014 Active Vitamin D 2000UNIT ORAL daily; Duration: -2013 Active Caltrate 600 1500MG 1 ORAL twice daily; Duration: -05/19/2014 Active Levothyroxine Sodium 100 MCG 1 tablet Orally Once a day Active Nasonex 50 MCG/ACT 2 sprays in each nos tril Nasally Twice a day Active Atorvastatin Calcium 40 MG 1 tablet Oral ly Once a day; Duration: 30 day(s) Active Topiramate 25 MG Oral; Duration: 90 Days Active Clotrimazole-Betamethasone 1-0.05 % 1 application to affected area Externally Twice a day; Duration: 14 days 12/01/2022 Active Clobetasol Propionate 0.05 % 1 application to affected area Externally TWICE A DAY FOR 2 WEEKS, THEN NIGHTLY; Duration: 30 days 08/29/2022 Active Social History Tobacco Use: Social History Observation Description Date Details (start date - stop date) Never Smoker NA - NA Sexual History Question Answer Notes Had sex in the past 12 months (vaginal, oral, or anal)? No AUDIT-C (Standard) Question Answer Notes Did you have a drink containing alcohol in the p ast year? No Points 0 Interpretation Negative Tobacco Control (Standard) Question Answer Notes Tobacco use: Nonsmoker Problems Problem Type SNOMED Code ICD Code Onset Dates Problem Status W/U Status Risk Notes Problem Mucous polyp of cervix (31660428) Polyp of cervix uteri (N84.1) Active confirmed Problem Atopic dermatitis (52453670) Other atopic dermatitis (L20.89) Active confirmed Problem Menopause (462404331) Menopausal and female climacteric states (N95.1) Active confirmed Problem Routine gynecological examination (V72.31) Active confirmed Major Vital Signs Temperature 97.9 degrees Fahrenheit 12/26/2024 Blood pressure diastolic 74 mm Hg 12/26/2024 Height 61 in 12/26/2024 Blood pressure systolic 110 mm Hg 12/26/2024 Weight 134 lbs 12/26/2024 BMI 25.32 kg/m2 12/26/2024 Encounters Encounter Location Date Provider Diagnosis [facility] [place] [address] [address] [address] 02/26/2025 Kadie Hernandez Polyp of cervix uter i N84.1 [facility] [place] [address] [address] 12/26/2024 Kadie Hernandez Encounter for gynecological examination (general) (routine) without abnormal findings Z01.419 ; Encounter for screening mammogram for malignant neoplasm of breast Z12.31 ; Polyp of cervix uteri N84.1 ; Menopausal and female climacteric states N95.1 and Dense breasts, unspecified R92.30 [facility] [place] [address] [address] 12/26/2024 Kadie Hernandez Assessments Encounter Date Diagnosis (ICD Code) Assessment Notes Treatment Notes Treatment Clinical Notes Section Notes 12/26/2024 Encounter for gynecological examination (general) (routine) without abnormal findings (ICD-10 - Z01.419) NO PAP TEST, DUE IN 2025. 02/26/2025 Polyp of cervix uteri (ICD-10 - N84.1) 12/26/2024 Encounter for screening mammogram for malignant neoplasm of breast (ICD-10 - Z12.31) REGULAR MAMMOGRAMS AND SBE'S WERE RECOMMENDED. 12/26/2024 Polyp of cervix uteri (ICD-10 - N84.1) DISCUSSED LARGE CERVICAL POLYP. RECOMMENDED HSONO TO SEE IF SHE HAS MORE POLYPS WITHIN THE ENDOMETRIUM AND TO SEE THE BASE OF THIS CERVICAL POLYP. WILL SCHEDULE. IF THERE ARE NO ENDOMETRIAL POLYPS AND CERVICAL POLYP BASE IS WITHIN SIGHT, WILL PRECEED WITH POLYPECTOMY. 12/26/2024 Menopausal and female climacteric states (ICD-10 - N95.1) DISCUSSED MENOPAUSE AND SYMPTOMS ASSOCIATED WITH THIS. 12/26/2024 Dense breasts, unspecified (ICD-10 - R92.30) DISCUSSED DENSE BREASTS ON MAMMOGRAM AND ITS IMPLICATIONS. 3D MAMMOGRAMS WERE RECOMMENDED. Plan Of Treatment Pending Test Test Name Order Date RPR 02/06/2015 Hep Be Ag 02/06/2015 Hepatitis C antibody 02/06/2015 HIV 02/06/2015 Urinalysis 07/30/2015 Urinalysis 08/13/2019 Urinalysis 08/20/2021 SURGICAL PATHOLOGY 02/26/2025 THIN PREP,HPV,CRIS IF HPV+ (>29YR)(DIAG) 08/29/2022 THIN PREP,HPV,CRIS IF HPV+ (>29YR)(SCRN) 08/01/2016 MM Digital Mammo Screening 08/07/2017 MM Digital Mammo Screening 08/18/2020 MM Digital Mammo Screening 08/20/2021 MM Digital Mammo Screening 12/26/2024 MM Digital Mammo Screening 08/29/2022 Insurance Providers Payer Name Payer Address Payer Phone Subscriber Number Group Number Insured Name Patient Relationship to Insured Coverage Start Date Coverage End Date [facility] [address] [facility] [place] [id number] JUDI RODRIGUEZ Self - patient is the insured Medical (General) History Medical History History ICD Code Inconclusive mammogram R92.2 Epidermal thickening, unspecified L85.9 Lichen simplex chronicus L28.0 Other atopic dermatitis L20.89 Other fatigue R53.83 Dense breasts, unspecified R92.30 Mammographic heterogeneous density, bila teral breasts R92.333 Polyp of cervix uteri N84.1 Menopausal and female climacteric states N95.1 Surgical History Surgery Date(Month/Year) Thyroidectomy 2007 Partial Laryngectomy Colonoscopy Hospitalization History Reason Date(Month/Year) See Surgical Hx 1 Vaginal Delivery
[2025-02-26 14:41] LABS: Free T4 (Free Thyroxine) 1.26 ng/dL (0.71-1.85); Thyroid Stimulating Hormone 3.35 uIU/mL (0.32-4.0)
== END 2025-02-26 11:24 | disposition home or self-care (01) ==
LOC: HO.10HDL 11:23
PROVIDERS: Visit Provider Student in an Organized Health Care Education/Training Program
DX: E89.0 Postprocedural hypothyroidism (principal)
CPT/HCPCS: 36415; 84439; 84443

== ENCOUNTER 2025-03-06 11:29 | Outpatient (AMB) | payer OTHER, SELFPAY ==
[2025-03-06 11:31] VITALS: BP 118/74; PULSE 67; O2SAT 98; BMI 26.0
--- NOTE | 2025-03-06 11:31 | MHC.OFFVIS ---
Vital Signs 03/06/25 11:31 Height 5 ft 1 in Weight 137 lb 9.095 oz BMI 26.0 BP 118/74 Blood Pressure Location Lt brachial Position Sitting Pulse 67 Pulse Source Pulse Oximeter Pulse Oximetry (%) 98 Oxygen Delivery Method Room Air Intake Visit Reasons: Hypothyroidism Intake Note: Patient present today for thyroid cancer office visit. 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 Accompanied by: Self / Same As Patient Allergies No Known Allergies Allergy (Verified 03/06/25 11:34) Medication List - Last Reconciled 03/06/25 by Parul Jasmine MD atorvastatin 40 mg PO DAILY 90 days calcium carbonate-vitamin D3 600 mg-20 mcg (800 unit) (Caltrate plus D) 1 tab PO BID cholecalciferol (vitamin D3) 50 mcg PO BID levothyroxine orally daily; Take 1 tablet Monday to Monday and 1 and a half tablet on Sundays loperamide 2 mg PO Q6H PRN mometasone 50 mcg/actuation 2 sprays intranasal DAILY naphazoline-pheniramine 0.025-0.3 % (Allergy Eye (naphazoline-pheniramine)) 1 drp ophthalmic (eye) BID-QID PRN ondansetron 4 mg PO Q8H PRN polyethylene glycol 3350 (Miralax) 17 grams PO DAILY simethicone (Gas-X Extra Strength) 125 mg PO TID-QID PRN topiramate 25 mg PO BEDTIME 90 days triamcinolone acetonide 0.1% 1 appl dental BID PRN 7 days triamcinolone acetonide 0.5% 1 appl topical BID PRN HPI Comments Details: 54-year-old female who is here today for follow up of 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 Currently classified as CHAVA excellent response to treatment. She was initially followed by [facility] endocrinology and then Dr. Galeana at [facility] still she established care over here looks like in 2021. History of PTC in detail 01/2007: Total thyroidectomy and left modified radical neck dissection with pathology showing multifocal PTC, largest tumor 1.8 cm with a extrathyroidal extension with 4 versus 9? ? /22 lymph nodes, AJCC stage I, pT3 N1b MX, CHAVA initial intermediate risk of recurrence in the view of 9+ metastatic lymph nodes 03/2007: 152 mCi of treatment with radioactive iodine I 131 Per chart review she has had 3 Thyrogen stimulated whole-body scans that were negative for metastatic disease or any disease recurrence. 06/2018: FNA biopsy of left level 1 lymph node was negative for malignancy. 06/02/2022: Ultrasound neck showed abnormal-appearing lymph node noted at right level 1B, with thick cortex measuring 0.6 X 0.7 X 1.2 cm, and abnormal appearing left-sided lymph nodes at level 1B with 1 with Thick-it cortex measuring 1.5 X 1.1 X 1.9 cm in other abnormal with a absent hilum measuring 1 X 0.6 X 1.2 cm. Otherwise normal lymph nodes also noted. 06/22/2022: Ultrasound of the neck showed a left level 1B, 1.9 cm lymph node with the abnormal morphology with a globus shape and increased vascularity, no residual tissue in the thyroid bed. 07/01/22: FNA of a level 1 B lymph node with benign cytology suggesting no metastatic disease, thyroglobulin washout was indeterminate. 09/21/2023: Ultrasound of the neck done at [facility] where patient went for a 2nd opinion showed no evidence of abnormal lymphadenopathy. Currently patient is on levothyroxine 88 mcg and 75 mcg on alternate days. Apparently this regimen was chosen because she was having fluctuations. She is also on brand-name Synthroid but she was having issues with fluctuations in her TSH on levothyroxine. May 2024 showed TSH at 0.69 with free T4 of 1.26. Interval history 09/05/2024: TSH 0.94, free T4 1.38, TG less than 0.1, TG antibody less than 1 09/05/2024: Levothyroxine change to 75 mcg pill 1 pill Monday to Monday and 1-1/2 pills on Monday10/17/2024: TSH 0.56, free T4 1.22 02/26/2025: TSH 3.35, free T4 1.26 Denies any symptoms of hypothyroidism or hyperthyroidism. Denies any compressive symptoms. Physical exam General: sitting comfortably in no acute distress HEENT: normocephalic/atraumatic, Neck: supple, symmetrical, no palpable masses or lymph node Cardiac: normal heart sounds Pulm: normal breath sounds B/L, no added breath sounds Abd: not distended, no tenderness Extremities: no edema, no signs of myxedema Laboratory Tests 04/23/21 04/22/22 07/01/22 08:30 12:35 09:36 TSH 0.80 0.20 L Free T4 1.43 1.47 Thyroglobulin Thyroglobulin Fn Nl As 3.7 07/04/22 10/27/22 04/20/23 13:37 12:39 11:54 TSH 0.27 L 0.11 L Free T4 1.35 1.28 1.15 Thyroglobulin <0.1 L Thyroglobulin Fn Nl As 06/06/23 09/06/23 03/04/24 11:50 12:26 11:56 TSH 0.97 0.53 1.71 Free T4 1.21 1.10 1.09 Thyroglobulin Thyroglobulin Fn Nl As 06/06/24 12:28 TSH 0.69 Free T4 1.26 Thyroglobulin Thyroglobulin Fn Nl As Laboratory Tests 09/05/24 10/17/24 02/26/25 12:28 13:24 11:26 TSH 0.94 0.56 3.35 Free T4 1.38 1.22 1.26 Thyroglobulin <0.1 Thyroglobulin Antibody <1 US SOFT TISSUE NECK 06/02/22 CLINICAL INFORMATION: Malignant neoplasm of thyroid gland. Status post thyroidectomy. COMPARISON: None. TECHNIQUE: Ultrasound of the neck soft tissues is performed with high- frequency mosqueda-scale imaging and color Doppler. FINDINGS: THYROID BED: Total thyroidectomy. No residual thyroid tissue demonstrated in the thyroid bed. No cystic or solid nodules demonstrated in the thyroid bed. RIGHT NECK SOFT TISSUES: Scattered architecturally normal nodes are present. The nodes show normal fatty hilus, normal cortical thickness, and no cystic change or calcification. No abnormal color flow. The largest nodes are as follows: Level IA: 1.1 x 0.6 x 0.8 cm. Normal kimi architecture. Level IB: 0.6 x 0.7 x 1.2 cm. Abnormal kimi architecture with thick cortex. Level III: 1.8 x 0.3 x 0.5 cm. Normal kimi architecture. LEFT NECK SOFT TISSUES: Scattered architecturally normal nodes are present. The nodes show normal fatty hilus, normal cortical thickness, and no cystic change or calcification. No abnormal color flow. The largest nodes are as follows: Level IB: 1.5 x 1.1 x 1.9 cm. Abnormal kimi architecture with thick cortex. Level IB: 1.0 x 0.6 x 1.2 cm. Abnormal kimi architecture with absent hilum. Level II: 1.1 x 0.6 x 1.1 cm. Normal kimi architecture. US/US soft tiss head and/or neck IMPRESSION: 1. Total thyroidectomy with no residual tissue seen in the thyroid bed. 2. Abnormal-appearing lymph nodes level IB on right and left side. 3. Recommend continued follow-up. 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 Cognitive needs: No Hearing needs: No Vision needs: No Assessment & Plan Assessment & Plan (1) Thyroid cancer: Code(s): C73 - Malignant neoplasm of thyroid gland Category: Medical Plan: 54-year-old female who is here today for follow up of 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 Currently classified as CHAVA excellent response to treatment. Labs from August 2024 showed undetectable TG levels. Her last ultrasound of the neck was last here in September 2023 at [facility] which did not identify any abnormal lymphadenopathy. At this point patient is 18 years post surgery, with no recurrence. This is very reassuring. I will not get an ultrasound this year, on my exam I do not feel any abnormal lymph nodes. Patient does not have any compressive symptoms. We will plan to repeat an ultrasound of the neck in September of 2025 next. Given excellent response to therapy goal TSH would be 0.5-2. 02/26/2025: TSH 3.35, free T4 1.26 at this point like I mentioned before she is 18 years post surgery we will continue her on current dose. There is no need to suppress her TSH. Plan: -continue Synthroid to 75 mcg 1 tablet Monday to Monday and 1 and a half tablet on Sundays -repeat TSH, free T4 TG and TG antibodies in September 2025 prior to follow up -ordered ultrasound of the neck to be done September 2025 prior to follow up (2) Postsurgical hypothyroidism: Comment: S/P total thyroidectomy in 2006 Code(s): E89.0 - Postprocedural hypothyroidism Category: Medical Plan: Given excellent response to therapy goal TSH would be 0.5-2. 02/26/2025: TSH 3.35, free T4 1.26 at this point like I mentioned before she is 18 years post surgery we will continue her on current dose. There is no need to suppress her TSH. Plan: -continue Synthroid to 75 mcg 1 tablet Monday to Monday and 1 and a half tablet on Sundays -repeat TSH, free T4 TG and TG antibodies in September 2025 prior to follow up Plan I spent 30 minutes in reviewing the record, seeing the patient and documenting in the medical record. Orders: Orders US soft tiss head and/or neck 09/15/25 C73 - Malignant neoplasm of thyroid gland, E89.0 - Postprocedural hypothyroidism Thyroid Stimulating Hormone 09/15/25 C73 - Malignant neoplasm of thyroid gland, E89.0 - Postprocedural hypothyroidism Thyroglobulin Tumor Marker 09/15/25 C73 - Malignant neoplasm of thyroid gland, E89.0 - Postprocedural hypothyroidism Free T4 (Free Thyroxine) 09/15/25 C73 - Malignant neoplasm of thyroid gland, E89.0 - Postprocedural hypothyroidism Thyroglobulin 09/15/25 C73 - Malignant neoplasm of thyroid gland, E89.0 - Postprocedural hypothyroidism Thyroglobulin Antibodies 09/15/25 C73 - Malignant neoplasm of thyroid gland, E89.0 - Postprocedural hypothyroidism Medications: Refilled levothyroxine orally daily; Take 1 tablet Monday to Monday and 1 and a half tablet on Sundays 90 tabs 4RF Patient Instructions: Continue levothyroxine 75 mcg tablet 1 tablet Monday to Monday , 1 and a half tablet on Sundays Do ultrasound neck beginning of September 2025, someone will call you to schedule this, please make sure this is done a few weeks before your next appointment with me end of September 2025 Do thyroid blood work 1-2 weeks prior to next appointment in September 2025 Coding Level of Care Code Est Pt Level 4 (41506) Complex EM visit Add On G2211 Diagnoses Thyroid cancer C73 Postsurgical hypothyroidism E89.0 Time Spent (min) 30
== END 2025-03-06 11:51 | disposition home or self-care (01) ==
LOC: HO.ENCR 11:29
PROVIDERS: PCP Internal Medicine; Visit Provider Student in an Organized Health Care Education/Training Program
DX: C73 Malignant neoplasm of thyroid gland (principal); E89.0 Postprocedural hypothyroidism
CPT/HCPCS: 99214; G2211

== ENCOUNTER 2025-06-06 12:07 | Outpatient (REF) | payer OTHER, SELFPAY ==
--- OUTSIDE RECORDS SUMMARY | 2024-12-26 04:40 | XMS_ITS ---
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 :1970 A ge:54 Y S ex:Female Date:12/26/2024 Address:[address] [place], [place] [phone] Pcp:MC WILSON Subjective: * Chief Complaints: * 1 . 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 * Medical History: Objective: * Vitals: Assessment: Plan: * Treatment: * Images: Billing Information: * Visit Code: * Procedure Codes: * Electronic signature of Yenny Hernandez MD on 06/06/2025 at 12:41 PM EST Sign off status: Pending * Appointment Provider: Anali Hernandez M.D. Date: 0 12/26/2024 Generated for Livieri shannon/Mikala/eTransmitting on: 1 08/06/2024 12:41 PM EST
--- OUTSIDE RECORDS SUMMARY | 2025-02-18 04:40 | XMS_ITS ---
Author Organization [facility] [employer] [facility] Address [address] [place] [address] Care Team Providers Care Material Hauler Name Role Phone MC WILSON Primary Care Provider Kadie Mary [phone] REASON FOR VISIT CERVICAL POLYP REMOVAL PROCEDURE ROOM Encounters Encounter Location Date Provider Diagnosis [facility] [employer] [address] [address] 02/18/2025 Kadie Hernandez Plan Of Treatment No Information Progress Notes * JENNIFERTIMBOB: 0 (55 yo F)Acc No.[id number]:02/18/2025 PROGRESS NOTES Patient: JUDI NEAL Appointment Provider: Anali Hernandez M.D. :1970 A ge:54 Y S ex:Female Date:02/18/2025 Address:[address] [place], [place] [phone] Pcp:CM WILSON Subjective: * Chief Complaints: * 1 . CERVICAL POLYP REMOVAL PROCEDURE ROOM. * Medical History: Objective: * Vitals: Assessment: Plan: * Treatment: * Images: Billing Information: * Visit Code: * Procedure Codes: * Electronic signature of Yenny Hernandez MD on 06/06/2025 at 12:41 PM EST Sign off status: Pending * Appointment Provider: Anali Hernandez M.D. Date: 0 02/18/2025 Generated for Sofía ortgea/Mikala/eTransmitting on: 08/06/2024 12:41 PM EST
--- OUTSIDE RECORDS SUMMARY | 2025-02-21 04:30 | XMS_ITS ---
Author Organization [facility] Address [address] [place] [address] Care Team Providers Care Real Estate Asset Manager Name Role Phone MC WILSON Primary Care Provider Kadie Mary [phone] REASON FOR VISIT HSONO/POLYP REMOVAL Encounters Encounter Location Date Provider Diagnosis [facility] [address] [address] 02/21/2025 Kadie Hernandez Plan Of Treatment No Information Progress Notes * TIMBO RODRIGUEZB: 0 (55 yo F)Acc No.[id number]:02/21/2025 Patient: Umair SALAZAR JUDI Appointment Provider: Anali Hernandez M.D. :1970 A ge:54 Y S ex:Female Date:02/21/2025 Address:[address] [place], [place] [phone] Pcp:MC WILSON Subjective: * Chief Complaints: * 1 . HSONO/POLYP REMOVAL. * Medical History: Objective: * Vitals: Assessment: Plan: * Treatment: * Images: Billing Information: * Visit Code: * Procedure Codes: * Electronic signature of Yenny Hernandez MD on 06/06/2025 at 12:41 PM EST Sign off status: Pending * Appointment Provider: Anali Hernandez M.D. Date: 0 02/21/2025 Generated for Livieri shannon/Fatal/eTransmitting on: 08/06/2024 12:41 PM EST
--- OUTSIDE RECORDS SUMMARY | 2025-02-21 04:30 | XMS_ITS ---
Author Organization [facility] [employer] [facility] Address [address] [place] [address] Care Team Providers Care Filling Hauler Name Role Phone MC WILSON Primary Care Provider Kadie Mary [phone] REASON FOR VISIT HSONO/POLYP REMOVAL Encounters Encounter Location Date Provider Diagnosis [facility] [employer] [address] [address] 02/21/2025 Kadie Hernandez Plan Of Treatment No Information Progress Notes * TIMBO RODRIGUEZB: 0 (55 yo F)Acc No.[id number]:02/21/2025 Patient: Umair SALAZAR JUDI Appointment Provider: Anali Hernandez M.D. :1970 A ge:54 Y S ex:Female Date:02/21/2025 Address:[address] [place], [place] [phone] Pcp:MC WILSON Subjective: * Chief Complaints: * [...]
--- OUTSIDE RECORDS SUMMARY | 2025-06-06 12:41 | XMS_ITS | Clinical Summary ---
Author Organization [facility] Address [address] [place] [address] Care Team Providers Care Eradicator Name Role Phone BalbirLawrence Primary Care Provider [phone] Allergies No known active allergies Medications Synthroid [...] Cancer Screening 09/09/2013 Pap Smear 09/09/2013 09/09/2010 Alcohol/Substance Use Screening 07/17/2024 Depression Screening and Follow-Up 07/17/2024 Social Drivers of Health Sheela ual Screening 07/17/2024 Influenza Vaccine (#1) 2025 3, 04/29/2022, 04/28/2021, Additional history exists COVID-19 Vaccine (2024-2 6 season) 2025 05/17/2022, 06/17/2021, 07/31/2020, Additional history exists DTaP,Tdap,and Td Vaccines (3 - Td or Tdap) 05/20/2025 05/20/2015, 03/29/2013 Procedures * Due to [place] state law, this organization might not be sharing negative HIV tests. Procedure Name Priority Date/Time Associated Diagnosis Comments MAMMOGRAPHY Routine 09/21/2010 12:00 PM EST PAP SMEAR Routine 09/09/2010 12:00 PM EST from Last 3 Months or Most Recently Relevant to Health Maintenance Results * Due to [place] state law, this organization might not be sharing negative HIV tests. * MAMMOGRAPHY (09/21/2010 12:00 PM EST) Mammogram [facility] Anatomical Region Laterality Modality Other 09/21/2010 12:0 0 PM EST us Historical Conversion Provider HEALTH MAINTENANC E Final Result * PAP SMEAR (09/09/2010 12:00 PM EST) Pap smear [facility] 09/09/2010 12:0 0 PM EST us Historical Conversion Provider HEALTH MAINTENANC E Final Result [facility] from Last 3 Months or Most Recently Relevant to Health Maintenance Insurance [id number] Care Teams Eradicator Relationship Specialty Start Date End Date Lawrence Mcgregor [address] [place] [address] [place] [address] PCP - General Internal Medicine 05/19/23
--- OUTSIDE RECORDS SUMMARY | 2025-06-06 12:41 | XMS_ITS | Patient Health Record ---
Author Organization [facility] Address [address] [place] [address] Care Team Providers Care Personnel And Payroll Technician Name Role Phone MC WILSON Primary Care Provider Kadie Mary Unavailable [phone] Allergies No Known Allergies Results Component Value Reference Range Notes Urinalysis Reviewed date:12/26/2024 10:25:59 AM Interpretation: Performing Lab: Notes/Report: PH 5.0 PROTEIN Neg GLUCOSE Neg BLOOD Trace SURGICAL PATHOLOGY Reviewed date:03/01/2025 06:30:25 PM Interpretation: Performing Lab:Testing performed or reported by [facility], a Service of [facility], [address] [place] [address] Nguyễn Morley MD, Service Trainer LUCERO# [id number] Notes/Report: Patient Name: JUDI RODRIGUEZ Lab Patient : 1970 (Age: 54) Collection Date: 02/26/2025 Accession Date: 02/27/2025 Sign Out Date: 02/28/2025 Tissue Source: 1:CERVICAL POLYP Final Diagnosis: Cervical polyp, polypectomy: - Benign lower uterine segment / endometrial polyp. - No endometrial hyperplasia or carcinoma is seen. Primary Pathologist:Alida Ferreira M.D. electronically signed out by: Alida Ferreira M.D. / [facility] Clinical History: 54-year-old female, cervical polyp Gross Description: Labeled cervical polyp . Received in formalin is a bilobed pedunculated soft dark red polyp measuring 1.5 x 1.5 x 0.6 cm. The stalk is pale-law and measures 0.8 cm in length. The margin of the stalk is marked with blue ink by the prosector. The polyp is longitudinally bisected and entirely submitted as follows: 1-stalk, one half of polyp, 2 pieces, x 2. 2-polyp, other half, 1 piece, x 2. (KD)* As of September 23, 2023, the specimen processing and staining is performed at [facility], [address] [place] [address] (CLIA#[id number]). Its performance characteristics determined by [facility]. Cely Henderson M.D. Service Trainer of Surgical Pathology, Bola Leon M.D. Service Trainer Cytopathology Phone #: [phone], On-Call Pathologist: [id number] Test, Urine Reviewed date:02/26/2025 10:23:43 AM Interpretation: Performing Lab: Notes/Report: Test, Urine Negative Reason For Referral No Information Medications Medication [...] Risk Notes Problem Mucous polyp of cervix (32410627) Polyp of cervix uteri (N84.1) Active confirmed Problem Atopic dermatitis (65277031) Other atopic dermatitis (L20.89) Active confirmed Problem Polyp of corpus uteri (41211194) Polyp of corpus uteri (N84.0) Active confirmed Problem Menopause (690783906) Menopausal and female climacteric states (N95.1) Active confirmed Problem Gynecological examination normal (494932570271400) Routine gynecological examination (V72.31) Active confirmed Major Vital Signs Temperature 97.9 degrees Fahrenheit 12/26/2024 Blood pressure diastolic 74 mm Hg 12/26/2024 Height 61 in 12/26/2024 Blood pressure systolic 110 mm Hg 12/26/2024 Weight 134 lbs 12/26/2024 BMI 25.32 kg/m2 12/26/2024 Encounters Encounter Location Date Provider Diagnosis [place] [address] [employer] [address] [address] 12/26/2024 Kadie Hernandez Encounter for gynecological examination (general) (routine) without abnormal findings Z01.419 ; Encounter for screening mammogram for malignant neoplasm of breast Z12.31 ; Polyp of cervix uteri N84.1 ; Menopausal and female climacteric states N95.1 and Dense breasts, unspecified R92.30 [place] [address] [address] 02/26/2025 Kadie Hernandez Polyp of cervix uter i N84.1 and Polyp of corpus uteri N84.0 [place] [address] [employer] [address] [address] 02/26/2025 Kadie Hernandez Total [place] [address] [employer] [address] [address] 12/26/2024 Kadie Hernandez Assessments Encounter Date Diagnosis (ICD Code) Assessment Notes Treatment Notes Treatment Clinical Notes Section Notes 12/26/2024 Encounter for gynecological examination (general) (routine) without abnormal findings (ICD-10 - Z01.419) NO PAP TEST, DUE IN 2025. 02/26/2025 Polyp of cervix uteri (ICD-10 - N84.1) CERVICAL POLYP WAS EXCISED WITHOUT DIFFICULTY. SPECIMEN SENT TO PATHOLOGY. 02/26/2025 Polyp of corpus uteri (ICD-10 - N84.0) ENDOMETRIAL POLYP NOTED ON HSONO. DISCUSSED THIS WITH PAT AND RECOMMENDED HYSTEROSCOPY, POLYPECTOMY AND D&C. WILL REFER TO DR LARA. DISCUSSED PROCEDURE WITH PAT AND SHE AGREED. 12/26/2024 Encounter for screening mammogram for malignant [...] Insured Coverage Start Date Coverage End Date [facility] [address] [place] [address] [phone] [id number] JUDI RODRIGUEZ Self - patient is [...]
[2025-06-06 13:59] LABS: MANUAL DIFF FLAG NO
[2025-06-06 14:17] LABS: Hematocrit 39.4 % (37.0-47.0); Hemoglobin 13.6 g/dl (12.0-16.0); Imm Gran Abs Auto 0.01 X10*3/uL (0.00-0.03); Imm Gran Pct Auto 0.2 % (0.0-0.4); Lymphocytes Absolute Auto 1.1 X10*3/uL (1.2-4.9); Mean Corpuscular HGB Conc 34.5 g/dl (31.0-35.0); Mean Corpuscular Hemoglobin 30.9 pg (27.0-33.0); Mean Corpuscular Volume 89.5 fL (80.0-98.0); NRBC Abs Auto 0.000 X10*3/uL (0.0-0.012); NRBC Pct Auto 0.0 /100WBC (0.0-0.2); Platelet Count 300 X10*3/uL (160-400); Red Blood Count 4.40 X10*6/uL (4.20-5.50); White Blood Count 4.1 X10*3/uL (4.8-10.8)
[2025-06-06 20:12] LABS: Alanine Aminotransferase 29 U/L (0-31); Albumin Level 4.7 g/dL (3.5-5.0); Alkaline Phosphatase 88 U/L (39-117); Anion Gap 12 (12-20); Aspartate Amino Transferase 32 U/L (5-31); Blood Urea Nitrogen 9 mg/dL (9-16); Calcium 8.7 mg/dL (8.4-10.2); Carbon Dioxide 26 mmol/L (22-29); Chloride 108 mmol/L (96-108); Cholesterol 119 mg/dL (<200); Estimated Glomerular Filt Rate > 60; HDL Cholesterol 65 mg/dL (>40); Potassium 3.7 mmol/L (3.3-5.1); Sodium 142 mmol/L (135-145); Total Protein 7.5 g/dL (6.5-8.0); Triglycerides 57 mg/dL (<150)
[2025-06-06 20:27] LABS: Free T4 (Free Thyroxine) 1.29 ng/dL (0.71-1.85); Thyroid Stimulating Hormone 1.17 uIU/mL (0.32-4.0)
== END 2025-06-06 12:08 | disposition home or self-care (01) ==
LOC: HO.10HDL 12:07
PROVIDERS: Visit Provider Internal Medicine
DX: E03.9 Hypothyroidism, unspecified (principal); E78.00 Pure hypercholesterolemia, unspecified; D64.9 Anemia, unspecified
CPT/HCPCS: 36415; 80053; 80061; 84439; 84443; 85025

== ENCOUNTER 2025-06-09 10:57 | Outpatient (AMB) | payer OTHER, SELFPAY ==
--- OUTSIDE RECORDS SUMMARY | 2024-12-26 04:40 | XMS_ITS ---
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 :1970 A ge:54 Y S ex:Female Date:12/26/2024 Address:[address] [place], [place] [phone] Pcp:MC WILSON Subjective: * Chief Complaints: * 1 . 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 * Medical History: Objective: * Vitals: Assessment: Plan: * Treatment: * Images: Billing Information: * Visit Code: * Procedure Codes: * Electronic signature of Yenny Hernandez MD on 06/09/2025 at 02:04 PM EST Sign off status: Pending * Appointment Provider: Anali Hernandez M.D. Date: 0 12/26/2024 Generated for Sofía ortega/Mikala/eTransmitting on: 08/09/2024 02:04 PM EST
--- OUTSIDE RECORDS SUMMARY | 2025-02-18 04:40 | XMS_ITS ---
Author Organization [facility] Address [address] [place] [address] Care Team Providers Care Sheet Metal Mechanic Name Role Phone MC WILSON Primary Care Provider Kadie Mary [phone] REASON FOR VISIT CERVICAL POLYP REMOVAL PROCEDURE ROOM Encounters Encounter Location Date Provider Diagnosis [facility] [address] [address] 02/18/2025 Kadie Hernandez Plan Of Treatment No Information Progress Notes * JENNIFERTIMBOB: 0 (55 yo F)Acc No.[id number]:02/18/2025 PROGRESS NOTES Patient: JUDI NEAL Appointment Provider: Anali Hernandez M.D. :1970 A ge:54 Y S ex:Female Date:02/18/2025 Address:[address] [place], [place] [phone] Pcp:MC WILSON Subjective: * Chief Complaints: * 1 . CERVICAL POLYP REMOVAL PROCEDURE ROOM. * Medical History: Objective: * Vitals: Assessment: Plan: * Treatment: * Images: Billing Information: * Visit Code: * Procedure Codes: * Electronic signature of Yenny Hernandez MD on 06/09/2025 at 02:05 PM EST Sign off status: Pending * Appointment Provider: Anali Hernandez M.D. Date: 0 02/18/2025 Generated for Sofía ortega/Mikala/eTransmitting on: 08/09/2024 02:05 PM EST
--- OUTSIDE RECORDS SUMMARY | 2025-02-21 04:30 | XMS_ITS ---
Author Organization [facility] [facility] Address [address] [place] [address] Care Team Providers Care Broker In Charge Name Role Phone MC WILSON Primary Care Provider Kadie Mary [phone] REASON FOR VISIT HSONO/POLYP REMOVAL Encounters Encounter Location Date Provider Diagnosis [facility] [address] [address] 02/21/2025 Kadie Hernandez Plan Of Treatment No Information Progress Notes * TIMBO RODRIGUEZB: 0 (55 yo F)Acc No.[id number]:02/21/2025 Patient: Umair SALAZAR JUDI Appointment Provider: Anali Hernandez M.D. :1970 A ge:54 Y S ex:Female Date:02/21/2025 Address:[address] [place], [place] [phone] Pcp:MC WILSON Subjective: * Chief Complaints: * 1 . HSONO/POLYP REMOVAL. * Medical History: Objective: * Vitals: Assessment: Plan: * Treatment: * Images: Billing Information: * Visit Code: * Procedure Codes: * Electronic signature of Yenny Hernandez MD on 06/09/2025 at 02:04 PM EST Sign off status: Pending * Appointment Provider: Anali Hernandez M.D. Date: 0 02/21/2025 Generated for Livieri shannon/Fatal/eTransmitting on: 08/09/2024 02:04 PM EST
--- OUTSIDE RECORDS SUMMARY | 2025-02-21 04:30 | XMS_ITS ---
Author Organization [facility] [employer] [facility] Address [address] [place] [address] Care Team Providers Care Contracts Representative Name Role Phone MC WILSON Primary Care Provider Kadie Mary [phone] REASON FOR VISIT HSONO/POLYP REMOVAL Encounters Encounter Location Date Provider Diagnosis [facility] [employer] [address] [address] 02/21/2025 Kadie Hernandez Plan Of Treatment No Information Progress Notes * TIMBO RODRIGUEZB: 0 (55 yo F)Acc No.[id number]:02/21/2025 Patient: Umair SALAZAR JUDI Appointment Provider: Anali Hernandez M.D. :1970 A ge:54 Y S ex:Female Date:02/21/2025 Address:[address] [place], [place] [phone] Pcp:MC WILSON Subjective: * Chief Complaints: * 1 . HSONO/POLYP REMOVAL. * Medical History: Objective: * Vitals: Assessment: Plan: * Treatment: * Images: Billing Information: * Visit Code: * Procedure Codes: * Electronic signature of Yenny Hernandez MD on 06/09/2025 at 02:05 PM EST Sign off status: Pending * Appointment Provider: Anali Hernandez M.D. Date: 0 02/21/2025 Generated for Livieri shannon/Fatal/eTransmitting on: 08/09/2024 02:05 PM EST
[2025-06-09 11:02] VITALS: BP 128/84; PULSE 75; O2SAT 98; BMI 25.5
--- NOTE | 2025-06-09 11:02 | MHC.PC.OV ---
Vital Signs 06/09/25 11:02 Height 5 ft 1 in Weight 135 lb BMI 25.5 BP 128/84 Blood Pressure Location Lt brachial Position Sitting Pulse 75 Pulse Source Pulse Oximeter Pulse Oximetry (%) 98 Oxygen Delivery Method Room Air Intake Visit Reasons: 4mth f/u Vocational Case Manager Required: No Accompanied by: Self / Same As Patient Allergies No Known Allergies Allergy (Verified 06/09/25 12:01) Medication List - Last Reconciled 06/09/25 by Lawrence Mcgregor MD atorvastatin 40 mg PO DAILY 90 days benzonatate 100 mg PO BID-TID PRN 30 days calcium carbonate-vitamin D3 600 mg-20 mcg (800 unit) (Caltrate plus D) 1 tab PO BID cholecalciferol (vitamin D3) 50 mcg PO BID levothyroxine orally daily; Take 1 tablet Monday to Monday and 1 and a half tablet on Sundays loperamide 2 mg PO Q6H PRN loratadine 10 mg PO DAILY PRN 90 days mometasone 50 mcg/actuation 2 sprays intranasal DAILY naphazoline-pheniramine 0.025-0.3 % (Allergy Eye (naphazoline-pheniramine)) 1 drp ophthalmic (eye) BID-QID PRN ondansetron 4 mg PO Q8H PRN polyethylene glycol 3350 (Miralax) 17 grams PO DAILY simethicone (Gas-X Extra Strength) 125 mg PO TID-QID PRN topiramate 25 mg PO BEDTIME 90 days triamcinolone acetonide 0.1% 1 appl dental BID PRN 7 days triamcinolone acetonide 0.5% 1 appl topical BID PRN Tobacco use date assessed: 06/09/25 Dental Screening Dental Screen Date: 06/09/25 Did you have a dental visit in the last 12 months?: Yes Did you have a dental problem in the last 6 months where you did not have access to dental care?: No Was dental information given to patient?: Patient has dentist HPI 4mth f/u HPI Details Patient comes in today for her follow up visit States that she feels okay except for on and off coughing due to a slight 'tickle' in her throat that she states comes and goes over the past couple of days She denies any headaches or dizziness lately; denies any sore throat or fever Denies any chest pains, no SOB - reports no symptoms of chest congestion No nausea/vomiting, no abdominal pain No change in bowel habits noted She had her follow up labs done a few days ago - to discuss her results COUNT INCLUDES THE [facility] Medical History Constipation Migraine Chronic headache Overweight (BMI 25.0-29.9) Vitamin D deficiency Postsurgical hypothyroidism Pure hypercholesterolemia Thyroid cancer Surgical History Hx of colonoscopy H/O total thyroidectomy Family History Mother Coronary artery disease Father Coronary artery disease Social History Housing: House Alcohol intake: never Patient Tobacco Use Status: Never used Tobacco e-Cigarette/Vaping Use: Never Used Second Hand Smoke Exposure: No service: No Current occupational status: employed 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 1. Little interest or pleasure in doing things: not at all 2. Feeling down, depressed, or hopeless: not at all 3. Trouble falling or staying asleep, or sleeping too much: several days 4. Feeling tired or having little energy: not at all 5. Poor appetite or overeating: not at all 6. Feeling bad about yourself - or that you are a failure or have let yourself or your family down: not at all 7. Trouble concentrating on things, such as reading the newspaper or watching television: not at all 8. Moving or speaking so slowly that other people could have noticed. Or the opposite - being so fidgety or restless that you have been moving around a lot more than usual: not at all 9. Thoughts that you would be better off or of hurting yourself in some way: not at all Total score: 1 Depression Screening Interpretation: Negative Depression Screening Done: Yes 79117 - PHQ-9 Billing: Yes Source: Developed by Drs. Spencer Pack, Mariann B.Jon Hernández and colleagues, with an educational yulissa from [employer]. Thrive Questionnaire Date Thrive assessed: 06/09/25 I am a: Patient What is your living situation today?: I have a steady place to live Within the past 12 months, did the food you bought not last and you didn't have the money to get more?: I choose not to answer this question Within the past 12 months, did you worry whether your food would run out before you got money to buy more?: Never true Do you have trouble paying for medicines?: No Do you have trouble getting transportation to medical appointments?: No Do you have trouble paying your heating and electricity bill?: No Do you have trouble taking care of your child, family member or friend?: No Do you have trouble with day-to-day activities such as bathing, preparing meals, shopping, managing finances, etc.?: No Are you currently unemployed and looking for a job?: No Are you interested in more education?: No Please select the resources that you would like help with: None Currently or been in a relationship where the following occur: I choose not to answer THRIVE Score: 0 AUDIT C Alcohol Use Questionnaire (AUDIT-C) 1. How often do you have a drink containing alcohol?: Never 3. How often do you have six or more drinks on one occasion?: Never Total Score: 0 Score Reviewed/Action Taken: Yes MARY-7 AMB Questionnaire MARY-7 Date MARY - 7 assessed: 06/09/25 Feeling nervous, anxious, or on edge: 0 = Not at all Not being able to stop or control worryin = Not at all Worrying too much about different things: 0 = Not at all Trouble relaxin = Not at all Being so restless that it is hard to sit still: 0 = Not at all Becoming easily annoyed or irritable: 0 = Not at all Feeling afraid as if something awful might happen: 0 = Not at all Total MARY-7 score (0-4 normal; 5-9 mild; 10-14 moderate; 15-21 severe): 0 Source: Developed by Drs. Spencer Pack, Jon Bundy and colleagues, with an educational yulissa from [employer]. Review of Systems Const Denies chills, Reports difficulty sleeping, Denies fatigue, Denies fever(s) and Denies headache(s) ENT Denies dysphagia, Denies dizziness, Denies otalgia, Denies headache(s), Denies neck pain, Denies odynophagia and Denies sore throat Card Denies chest pain, Denies irregular heart rhythm, Denies palpitations and Denies dyspnea Resp Denies chest congestion, Reports cough (on and off over the past couple of days, due to a tickle in her throat), Denies dyspnea and Denies wheezing GI Denies abdominal pain, Denies constipation, Denies dysphagia, Denies heartburn, Denies diarrhea, Denies nausea, Denies odynophagia and Denies vomiting Denies hematuria, Denies difficulty voiding, Denies dysuria, Denies urinary incontinence and Denies urinary urgency Musc Denies back pain, Denies arthralgias and Denies neck pain Skin/Breast Denies rash Neuro Denies dizziness, Denies headache(s) and Denies paresthesias Psych Denies anxiety and Denies depression Endo Denies fatigue and Denies palpitations Cameron/Lymph Denies easy bruising Aller/Immun Denies wheezing Physical exam (Primary Care) Vital Signs: Last Vital Signs Pulse 75 06/09/25 11:02 BP 128/84 06/09/25 11:02 Pulse Ox 98 06/09/25 11:02 Oxygen Delivery Method Room Air 06/09/25 11:02 BMI result Body Mass Index 25.5 Tobacco/Smoking Status: Tobacco use Status Tobacco use date assessed 06/09/25 06/09/25 11:05 Patient Tobacco Use Status Never used Tobacco 06/09/25 11:05 e-Cigarette/Vaping Use Never Used 06/09/25 11:05 PHQ-9: PHQ-9 Score PHQ-9: Total score 1 06/09/25 11:46 Depression Screening Interpretation: Negative Thrive Assessment: Date of Thrive Assessment Date Thrive assessed 06/09/25 06/09/25 11:05 Currently or been in a relationship where the following occur: I choose not to answer Const General: no acute distress and alert HENMT Ears: TM's normal bilaterally and EAC's normal Throat: Yes posterior oropharynx normal and Yes tonsils normal (no TP congestion) Neck Neck: Yes supple and No lymphadenopathy Thyroid: Thyroid normal Resp Auscultation: clear to auscultation bilaterally, no rales and no wheezes Cardio Rate: regular rate Rhythm: regular rhythm Heart sounds: no murmurs GI Palpation (GI): Soft to palpation and nontender Auscultation: normal bowel sounds General: Yes no CVA tenderness Back/Spine/Pelvis Back: no CVA tenderness Thoracic/Lumbar Spine: No lumbar spinal tenderness Skin Rashes: no rashes Extrem General: Yes no clubbing, cyanosis or edema Results Reviewed Results Reviewed: Laboratory Tests 06/06/25 12:10 WBC 4.1 L Hgb 13.6 Hct 39.4 Plt Count 300 Sodium 142 Potassium 3.7 Creatinine 0.67 Estimated GFR > 60 Fasting Glucose 99 Calcium 8.7 AST 32 H ALT 29 Triglycerides 57 Cholesterol 119 LDL Cholesterol, Calc 43 HDL Cholesterol 65 TSH 1.17 Free T4 1.29 Coding Level of Care Code Est Pt Level 4 (54260) Diagnoses Pure hypercholesterolemia E78.00 Postsurgical hypothyroidism E89.0 Thyroid cancer C73 Pulmonary nodule less than 6 mm in diameter with low risk for malignant neoplasm R91.1; Z91.89 Migraine without status migrainosus, not intractable, unspecified migraine type G43.909 Migraine type: unspecified Status migrainosus presence: without status migrainosus Intractability: not intractable Vitamin D deficiency E55.9 Constipation, unspecified constipation type K59.00 Constipation type: unspecified constipation type Additional Codes PHQ-9 - 17961 - PHQ-9 Billing: Yes ([id number]) Assessment & Plan Assessment & Plan (1) Pure hypercholesterolemia: Code(s): E78.00 - Pure hypercholesterolemia, unspecified Category: Medical Plan: Results of her labs done a few days ago reviewed and discussed with patient Reinforced low cholesterol diet Continue Atorvastatin 40 mg QD Will recheck her labs and fasting lipids in 4 months for follow up (2) Postsurgical hypothyroidism: Comment: S/P total thyroidectomy in 2006 Code(s): E89.0 - Postprocedural hypothyroidism Category: Medical Plan: Her TFTs were again normal on her recent labs Continue Levothyroxine 88 mcg alternating with 75 mcg every other day Will recheck her TFTs in 4 months for follow up (3) Thyroid cancer: Code(s): C73 - Malignant neoplasm of thyroid gland Category: Medical Plan: (+) Hx of papillary thyroid cancer, s/p total thyroidectomy and radioactive iodine therapy in 2006 Follow up exams done so far have shown no recurrence and no metastatic disease Follow up with endocrinology (Dr. Jasmine) as scheduled for continuing surveillance (4) Pulmonary nodule less than 6 mm in diameter with low risk for malignant neoplasm: Code(s): R91.1 - Solitary pulmonary nodule; Z91.89 - Other specified personal risk factors, not elsewhere classified Category: Medical Plan: This was seen incidentally on her chest CT done back in 2010 at [facility] - 3 mm RLL pulmonary nodule, and follow up CT was recommended but patient states that she never had another one done since Repeat chest CT done for follow up in August 2024 revealed (+) 5 mm noncalcified right lower lobe lung nodule Patient is advised to continue with routine surveillance (5) Migraine: Code(s): G43.909 - Migraine, unspecified, not intractable, without status migrainosus Category: Medical Qualifiers: Migraine type: unspecified Status migrainosus presence: without status migrainosus Intractability: not intractable Qualified Code(s): G43.909 - Migraine, unspecified, not intractable, without status migrainosus Plan: Patient states that her headaches have been better controlled with prophylactic Tx with Topiramate 25 mg Q HS Reinforced avoidance of potential migraine triggers Continue Ibuprofen or Tylenol PRN for symptomatic relief and Ondansetron 4 mg TID PRN for nausea/vomiting (6) Vitamin D deficiency: Code(s): E55.9 - Vitamin D deficiency, unspecified Category: Medical Plan: Continue Vitamin D3 2000 units QD (7) Constipation: Code(s): K59.00 - Constipation, unspecified Category: Medical Qualifiers: Constipation type: unspecified constipation type Qualified Code(s): K59.00 - Constipation, unspecified Plan: She is again encouraged on increased oral fluids and dietary fiber intake Continue Miralax 17 gm QD Plan Follow up in 4 months Orders: Orders Thyroid Stimulating Hormone 4 Months E03.9 - Hypothyroidism, unspecified Complete Blood Count Auto Diff 4 Months D64.9 - Anemia, unspecified Comprehensive [place]. Panel Fast 4 Months E78.00 - Pure hypercholesterolemia, unspecified Free T4 (Free Thyroxine) 4 Months E03.9 - Hypothyroidism, unspecified Lipid Panel 4 Months E78.00 - Pure hypercholesterolemia, unspecified UA CC w/rflx Micro + Cult 4 Months R30.0 - Dysuria Vitamin D 25-OH Total 4 Months E55.9 - Vitamin D deficiency, unspecified
--- OUTSIDE RECORDS SUMMARY | 2025-06-09 14:05 | XMS_ITS | Clinical Summary ---
Author Organization [facility] Address [address] [place] [address] Care Team Providers Care Prototype Special Build Name Role Phone BalbirLawrence Primary Care Provider [phone] Allergies No known active allergies Medications Synthroid [...] 05/20/2025 05/20/2015, 03/29/2013 Procedures * Due to [place] state law, this organization might not be sharing negative HIV tests. Procedure Name Priority Date/Time Associated Diagnosis Comments MAMMOGRAPHY Routine 09/21/2010 12:00 PM EST PAP SMEAR Routine 09/09/2010 12:00 PM EST from Last 3 Months or Most Recently Relevant to Health Maintenance Results * Due to [place] state law, this organization might not be sharing negative HIV tests. * MAMMOGRAPHY (09/21/2010 12:00 PM EST) Mammogram [facility] Anatomical Region Laterality Modality Other 09/21/2010 12:0 0 PM EST us Historical Conversion Provider HEALTH MAINTENANC E Final Result * PAP SMEAR (09/09/2010 12:00 PM EST) Pap smear [facility] 09/09/2010 12:0 0 PM EST us Historical Conversion Provider HEALTH MAINTENANC E Final Result [facility] from Last 3 Months or Most Recently Relevant to Health Maintenance Insurance [id number] Care Teams Prototype Special Build Relationship Specialty Start Date End Date Lawrence Mcgregor [address] [place] [address] [place] [address] PCP - General Internal Medicine 05/19/23
--- OUTSIDE RECORDS SUMMARY | 2025-06-09 14:05 | XMS_ITS | Patient Health Record ---
Author Organization [facility] Address [address] [place] [address] Care Team Providers Care Cooker Pie Filling Name Role Phone MC WILSON Primary Care Provider Kadie Mary Unavailable [phone] Allergies No Known Allergies Results Component Value Reference Range Notes Urinalysis Reviewed date:12/26/2024 10:25:59 AM Interpretation: Performing Lab: Notes/Report: PH 5.0 PROTEIN Neg GLUCOSE Neg BLOOD Trace Test, Urine Reviewed date:02/26/2025 10:23:43 AM Interpretation: Performing Lab: Notes/Report: Test, Urine Negative SURGICAL PATHOLOGY Reviewed date:03/01/2025 06:30:25 PM Interpretation: Performing Lab:Testing performed or reported by [facility], a Service of [facility], [address] [place] [address] Nguyễn Morley MD, Office Auditor [facility]# [id number] Notes/Report: Patient Name: JUDI RODRIGUEZ Lab Patient : 1970 (Age: 54) Collection Date: 02/26/2025 Accession Date: 02/27/2025 Sign Out Date: 02/28/2025 Tissue Source: 1:CERVICAL POLYP Final Diagnosis: Cervical polyp, polypectomy: - Benign lower uterine segment / endometrial polyp. - No endometrial hyperplasia or carcinoma is seen. Primary Pathologist:Alida Ferreira M.D. electronically signed out by: Alida Ferreira M.D. / [facility] Clinical History: 54-year-old female, cervical polyp Gross [...] specimen processing and staining is performed at [facility], [address] [place] [address] (CLIA#[id number]). Its performance characteristics determined by [facility]. Cely Henderson M.D. Office Auditor of Surgical Pathology, Bola Leon M.D. Office Auditor Cytopathology Phone #: [phone], On-Call Pathologist: [id number] Reason For Referral No Information Medications Medication [...] Risk Notes Problem Mucous polyp of cervix (31231086) Polyp of cervix uteri (N84.1) Active confirmed Problem Atopic dermatitis (45690210) Other atopic dermatitis (L20.89) Active confirmed Problem Polyp of corpus uteri (30060954) Polyp of corpus uteri (N84.0) Active confirmed Problem Menopause (076233407) Menopausal and female climacteric states (N95.1) Active confirmed Problem Gynecological examination normal (785391001003583) Routine gynecological examination (V72.31) Active confirmed Major Vital Signs Temperature 97.9 degrees Fahrenheit 12/26/2024 Blood pressure diastolic 74 mm Hg 12/26/2024 Height 61 in 12/26/2024 Blood pressure systolic 110 mm Hg 12/26/2024 Weight 134 lbs 12/26/2024 BMI 25.32 kg/m2 12/26/2024 Encounters Encounter Location Date Provider Diagnosis [place] [id number] [address] 12/26/2024 Kadie Hernandez Encounter for gynecological examination (general) (routine) without abnormal findings Z01.419 ; Encounter for screening mammogram for malignant neoplasm of breast Z12.31 ; Polyp of cervix uteri N84.1 ; Menopausal and female climacteric states N95.1 and Dense breasts, unspecified R92.30 [place] [address] [address] 02/26/2025 Kadie Hernandez Polyp of cervix uter i N84.1 and Polyp of corpus uteri N84.0 [place] [address] [address] 02/26/2025 Kadie Hernandez Total [place] [address] [address] 12/26/2024 Kadie Hernandez Assessments Encounter Date Diagnosis [...] Screening 08/20/2021 MM Digital Mammo Screening 12/26/2024 Insurance Providers Payer Name Payer Address Payer Phone Subscriber Number Group Number Insured Name Patient Relationship to Insured Coverage Start Date Coverage End Date [facility] [address] [place] [id number] JUDI RODRIGUEZ Self - patient is [...]
== END 2025-06-09 12:05 | disposition home or self-care (01) ==
LOC: HO.HMCH 10:58
PROVIDERS: PCP Internal Medicine; Visit Provider Internal Medicine
DX: E78.00 Pure hypercholesterolemia, unspecified (principal); E89.0 Postprocedural hypothyroidism; C73 Malignant neoplasm of thyroid gland; R91.1 Solitary pulmonary nodule; Z91.89 Other specified personal risk factors, not elsewhere classified; G43.909 Migraine, unspecified, not intractable, without status migrainosus; E55.9 Vitamin D deficiency, unspecified; K59.00 Constipation, unspecified

== ENCOUNTER → 2025-06-09 10:57 | Outpatient (BNVA) | payer OTHER, SELFPAY | PROVIDERS: PCP Internal Medicine; Visit Provider Internal Medicine | DX: E89.0 Postprocedural hypothyroidism (principal); E78.00 Pure hypercholesterolemia, unspecified; C73 Malignant neoplasm of thyroid gland; R91.1 Solitary pulmonary nodule; G43.909 Migraine, unspecified, not intractable, without status migrainosus; E55.9 Vitamin D deficiency, unspecified; K59.00 Constipation, unspecified; Z91.89 Other specified personal risk factors, not elsewhere classified | CPT/HCPCS: 96127 ==